=== PATIENT | male | born 1935 | race Caucasian/White ===

== ENCOUNTER 2016-07-26 05:36 | Inpatient (IN) | payer OTHER ==
[2016-07-20 14:44] LABS: HEMATOCRIT 33.5 % (42.0-52.0); HEMOGLOBIN 11.1 gm/dL (14.0-18.0)
[2016-07-20 14:56] LABS: INR 1.1; PROTIME 10.9 Seconds (9.3-11.4)
[~2016-07-26] VITALS: Ht 177.8 cm; Wt 95.3 kg
[2016-07-26] VITALS (10 sets, daily range): BP systolic 117–149; BP diastolic 60–98
--- NOTE | ~2016-07-26 | O ---
[facility] [place] [address] OPERATIVE REPORT Name: FLORIN HICKMAN Room #: 536-P [facility] IN M.R.#: [id number] Admission: 07/26/16 Attend Phys: Hasmukh Gonzales MD Discharge: Date of : 37 Report #: [id number] THIS REPORT FOR: //name// CC: Aneesh Gonzales DATE OF SERVICE: 07/26/2016 PREOPERATIVE DIAGNOSIS: Right knee osteoarthritis. POSTOPERATIVE DIAGNOSIS: Right knee osteoarthritis. PROCEDURE: Right total knee arthroplasty. SURGEON: Hasmukh Gonzales MD. STONEWORKER: Sandie Stewart PA-C. ANESTHESIA: General with an adductor canal block. IMPLANTS: Were Ayala and Nephew size 6 Legion cobalt chrome posterior stabilized femur, size 6 tibia, size 35 patella, and a size 9 polyethylene. TOURNIQUET TIME: 66 minutes. ESTIMATED BLOOD LOSS: 50 mL. COMPLICATIONS: None. SPECIMENS: None. CONDITION UPON LEAVING THE OPERATING ROOM: Stable. INDICATIONS FOR PROCEDURE: The patient is a 81-year-old gentleman with severe valgus right knee osteoarthritis. He had failed conservative treatment for this, and after discussion with him, he elected for right total knee arthroplasty. DESCRIPTION OF PROCEDURE: Risks, benefits, alternatives, and complications were discussed in detail with the patient, including but not limited to risk of anesthesia, risk of damage to nerves, arteries, blood vessels, risk for infection, bleeding, risk for continued knee pain, and need for reoperation. An informed consent was obtained from the patient. The right knee was appropriately marked in the preoperative holding area. IV Ancef was given for preoperative antibiotics. An adductor canal block was placed by anesthesia. He was brought to the operating room and placed in the supine position on the [address] [address] OPERATIVE REPORT Name: MARYLOUFLORIN DEBORAH Room #: 536-P [facility] IN M.R.#: [id number] Admission: 07/26/16 Attend Phys: Hasmukh Gonzales MD Discharge: Date of : 37 Report #: [id number] operating room table. LMA anesthesia was induced without complication. Tourniquet was placed on the right thigh. Right lower extremity was prepped and draped in normal sterile fashion. Timeout was performed, properly identifying the patient, procedure, as well as the instrumentation and implants. All in the operating room were in agreement. Right lower extremity was exsanguinated. Tourniquet was inflated. Tourniquet time was 66 minutes. A standard midline approach to the knee was made with #10 blade through the skin. Dissection was taken down sharply to the fascia, and deep flaps were developed medially and laterally. Fresh #10 blade was used to make a medial parapatellar arthrotomy, and the knee was inspected. There was extensive tricompartmental osteoarthritis of the knee, most severe on the lateral compartment. Deep retractors were placed, patella was everted, and knee was flexed. Anterior horns of the meniscus were removed sharply. ACL and PCL were removed sharply. Drill was used to gain access to the canal of the femur, and distal femoral cutting block was pinned in place. Distal femoral cut was made. The femur was sized and found to be of size 6. A size 6, 4-in-1 cutting block was placed. The anterior, posterior, and chamfer cuts were made. After this, attention was turned to the tibia. Drill was used to gain access to the canal and tibial resection guide was pinned in place using intramedullary alignment. Tibial resection was made and posterior osteophytes were then removed from the femur, and the flexion and extension gaps were checked and found to be somewhat tight and laterally in extension and a limited lateral release was performed using a pie crust technique. After this, the flexion and extension gaps were well balanced. The tibia was sized, found to be of size 6. The size 6 tibial trial was placed, size 6 femoral trial was placed, and the box cut was made. Post was placed and the size 9 polyethylene trial was placed. Knee was taken through range of motion, found to be stable and have good balance in flexion and extension, both medially and laterally. 9 mm was then resected from the posterior surface of the patella, and a size 35 patellar button trial was placed. Knee was taken through range of motion, found to be stable, and found to have good patellar tracking. After this, trial components were removed. Bony ends were thoroughly irrigated with normal saline. A final size 6 tibia, size 6 Legion cobalt chrome posterior stabilized femur, and a size 35 patella were cemented in place using standard cementation techniques. While this cement cured, a periarticular injection consisting of morphine, ropivacaine, epinephrine, and Toradol was placed around the knee joint. After the cement cured, tourniquet was deflated. Hemostasis was obtained with Bovie cautery. A final size 9 polyethylene was placed. The fascia was closed with 0 Vicryl. Skin was closed with 2-0 Vicryl, 3-0 Monocryl, and Dermabond. Soft dressing of Aquacel was applied. The patient tolerated this procedure well and went to the recovery room under the care of anesthesia postoperatively. <ELECTRONICALLY SIGNED> By: Hasmukh Gonzales MD 07/28/16 0716 0937 1031 Hasmukh Gonzales MD /cal
[~2016-07-26 05:36] MED LIST: ALEVE220 M1 PO; ALEVE220 MG PO; ASPERCREME177.4 ML; ASPIRIN325 PO; BISCOLAX10 MG RC; CALCIUM 600 +1 EAC1 PO; CARDIZEM CD180 MG PO; CARTIA XT180 M1 PO; CASODEX 50 MG T50 M1 PO; COLACE100 MG PO; ELIQUIS5 MG PO; HYDROCODONE-AP1 EAC6 PO; MAG-AL PLUS SUS30 ML PO; MEN'S ONE DAIL1 EAC1 PO; MIRALAX17 GM PO; NORCO 5-325 TA1 EACH PO; OXAYDO5 MG PO; PACERONE 200 M200 M1 PO; REQUIP1 MG PO; SENOKOT-S1 TA1 PO; STOOL SOFTENER100 MG PO
[2016-07-27 04:00] VITALS: BP 113/69
[2016-07-27 05:29] LABS: HEMOGLOBIN 8.5 gm/dL (14.0-18.0); MCH 27.6 pg (26.0-34.0); MCHC 32.7 g/dL (28.0-37.0); MCV 84.4 fL (80.0-100.0); RBC 3.08 mil/uL (4.50-6.00); RDW 13.4 % (10.5-14.5); WBC 14.6 thou/uL (4.0-11.0)
[2016-07-27 08:54] VITALS: BP 115/64
[2016-07-27 10:24] VITALS: BP 115/64
[2016-07-27 10:53] VITALS: BP 115/64
[2016-07-27 15:40] VITALS: BP 120/66
[2016-07-28 06:45] LABS: HEMATOCRIT 23.3 % (42.0-52.0); HEMOGLOBIN 7.7 gm/dL (14.0-18.0); MCH 28.1 pg (26.0-34.0); MCV 84.9 fL (80.0-100.0); RBC 2.75 mil/uL (4.50-6.00); RDW 13.5 % (10.5-14.5); WBC 11.4 thou/uL (4.0-11.0)
[2016-07-28 07:48] VITALS: BP 117/66
[2016-07-28 15:14] VITALS: BP 140/66
[2016-07-28 20:17] VITALS: BP 112/68
[2016-07-29 05:08] VITALS: BP 108/60
[2016-07-29 05:26] LABS: HEMATOCRIT 22.5 % (42.0-52.0); HEMOGLOBIN 7.5 gm/dL (14.0-18.0); MCHC 33.1 g/dL (28.0-37.0); MCV 84.6 fL (80.0-100.0); RBC 2.66 mil/uL (4.50-6.00); RDW 13.4 % (10.5-14.5); WBC 10.7 thou/uL (4.0-11.0)
[2016-07-29 07:44] VITALS: BP 111/60
[2016-07-29] MEDS ORDERED: CVS BUFFERED A325 MG PO (08:07)
[2016-07-29] MEDS ORDERED: MS CONTIN15 MG PO (08:08)
[2016-07-29] MEDS ORDERED: PERCOCET PO (08:08)
[2016-07-29 13:44] VITALS: BP 115/64
[2016-07-29] MEDS ORDERED: NEURONTIN 300300 M1 PO (13:59)
== END 2016-07-29 14:30 | disposition home health service (06) | DRG 470 ==
LOC: TBA 05:36 → 5S 05:36 → PRE 10:23 → 5S 11:33 → PRE 13:31 → 5S 07-29 14:30
PROVIDERS: Orthopaedic Surgery
PROC: 0SRC0J9 Replacement of Right Knee Joint with Synthetic Substitute, Cemented, Open Approach (ICD-10-PCS; principal; 2016-07-26)
DX: M17.11 Unilateral primary osteoarthritis, right knee (principal)
CPT/HCPCS: 10785; 50010; 50101; 50415; 50612; 50954; 51130; 51225; 51771; 52256; 53000; 53078; 53364; 54118; 56527; 56528; 57095; 62110; 62900; 70005

== ENCOUNTER 2016-08-04 10:47 | Emergency (ER) | payer OTHER ==
[~2016-08-04] VITALS: Ht 177.8 cm; Wt 88.0 kg
[~2016-08-04 10:47] MED LIST changes: +CVS BUFFERED A325 MG PO; +MS CONTIN15 MG PO; +NEURONTIN 300300 M1 PO; +PERCOCET PO
[2016-08-04] MEDS ORDERED: MAGNESIUM CITR296 ML PO (13:09)
[2016-08-04] MEDS ORDERED: SENOKOT-S1 TA1 PO (13:09)
[2016-08-04] MEDS ORDERED: DULCOLAX10 MG RC (13:09)
== END 2016-08-04 13:55 | disposition home or self-care (01) ==
LOC: ER 10:47
DX: K59.00 Constipation, unspecified (principal); R33.9 Retention of urine, unspecified; M19.90 Unspecified osteoarthritis, unspecified site; I10 Essential (primary) hypertension; I48.91 Unspecified atrial fibrillation; G25.81 Restless legs syndrome; Z98.890 Other specified postprocedural states; Z85.828 Personal history of other malignant neoplasm of skin; Z96.641 Presence of right artificial hip joint; Z85.46 Personal history of malignant neoplasm of prostate; Z96.652 Presence of left artificial knee joint; Z92.21 Personal history of antineoplastic chemotherapy; Z92.3 Personal history of irradiation

== ENCOUNTER 2016-08-08 06:51 | Inpatient (IN) | payer OTHER ==
[~2016-08-08] VITALS: Ht 177.8 cm; Wt 102.5 kg
--- NOTE | ~2016-08-08 | P ---
[facility] [place] [address] PROCEDURE REPORT Name: FLORIN HICKMAN Room #: 248-P ADM IN M.R.#: [id number] Admission: 08/08/16 Attend Phys: Yaakov Chance MD Discharge: Date of : 37 Report #: [id number] THIS REPORT FOR: //name// CC: Aneesh Chance BRIEF HISTORY: The patient is a 81-year-old male who has had recent total new replacement with multiple complications who had hematemesis last evening. PREOPERATIVE DIAGNOSIS: Hematemesis. He also has used nonsteroid anti-inflammatory drugs on a regular basis for arthritis pain. Upper gastrointestinal bleed. POSTOPERATIVE DIAGNOSES: 1. Giant clot filling duodenum and antrum of the stomach without obvious active bleeding at this time. 2. Diffuse gastritis. MEDICATIONS: Deep sedation with propofol per anesthesia. SPECIMEN: Biopsies of antrum and body, rule out H. pylori. ESTIMATED BLOOD LOSS: From the procedure, 3 mL. PROCEDURE: EGD with biopsy. FINDINGS: The patient was seen in the intensive care unit. Procedure was discussed with the patient and his . They indicate they understand and desire to proceed. DESCRIPTION OF PROCEDURE: With the patient in supine position, his head and chest were raised about 30 degrees. The [employer] video endoscope was inserted in the cervical esophagus under direct vision without difficulty. Examination of this organ through its entire length revealed normal esophageal mucosa down the squamocolumnar junction. Squamocolumnar junction was noted to be unremarkable. The scope was advanced in the stomach, and we entered a pool of blackish liquid material. We initially started with a standard upper endoscope and switched to double channel scope. We suctioned out about 700 mL of bloody fluid from the stomach, again this was old dark material. We cannot remove all the fluid from the proximal stomach due to the of the clot which clogged the scope. The scope was advanced into the distal stomach, and the mucosa was intact; however, there was a large organized clot filling the antrum coming out of the pylorus. Bright red blood was not seen. I was able to advance the scope around the clot across the pylorus into the duodenum. However, the entire duodenum was filled with large clot. I could get a glimpse of some of the mucosa, but overall, very little duodenum [facility] [address] [place] [address] PROCEDURE REPORT Name: FLORIN HICKMAN Room #: 248-P [facility] IN M.R.#: [id number] Admission: 08/08/16 Attend Phys: Yaakov Chance MD Discharge: Date of : 37 Report #: [id number] could be seen because of a large clot. We tried several times to work around the clot without success. Again, bright red blood was not seen, and presumably, the patient had stopped bleeding, although I could not advance the scope beyond the clot to determine whether there was any bright red blood downstream. Due to the size of the clot and the lack of bright red blood, it was felt best to not disturb the clot at this point rather than try debulk the clot with a polypectomy snare. My concerns for visibility in the duodenal bulb even if we debulk the clot, we still may not be able to have good visibility to deal with a bleeding vessel, which could result of removal of clot. Therefore, it was felt best to treat conservatively at this point in time. Mucosa biopsies were taken of the antrum and body to evaluate for H. pylori. The scope was withdrawn. The patient tolerated the procedure well. DISPOSITION: The patient with GI bleeding following total knee surgery with complications. Again, active bleeding was not seen. Visibility was limited due to giant clot filling the antrum and the duodenal bulb. We will treat with a PPI drip at this point in time. We will monitor hemoglobin carefully and transfuse as needed. Hopefully, if there is no further bleeding, we will return later in the week for repeat endoscopy to evaluate the presumed ulcer site. However, if he has further bleeding, we may need to proceed with urgent endoscopy and deal with the clot. Another consideration would be interventional radiology if bleeding cannot be controlled endoscopically. <ELECTRONICALLY SIGNED> By: Luis Fernando Cm MD 08/16/16 1217 1405 2128 Luis Fernando Cm MD /nt
--- NOTE | ~2016-08-08 | HC ---
[facility] [place] [address] CONSULTATION Name: FLORIN HICKMAN Room #: 544-P ADM IN M.R.#: [id number] Admission: 08/08/16 Attend Phys: Yaakov Chance MD Discharge: Date of : 37 Report #: [id number] THIS REPORT FOR: //name// CC: Aneesh Chance DATE OF SERVICE: 08/08/2016 REASON FOR CONSULTATION: I was asked to evaluate concerning right total knee arthroplasty surgical site infection. HISTORY OF PRESENT ILLNESS: The patient was a 81-year-old underwent right total knee arthroplasty on 07/26/2016 for degenerative arthritis. His first postoperative check was satisfactory. There were no intraoperative complications. The day following his check, he fell in the bathroom down to his knees with a contusion developing an increased pain and swelling. Along with this, he has had issues with constipation and urinary outlet obstructive symptoms. Dick catheter was placed in the Emergency Room for this on 08/04/2016. After his fall, pain increased in the knee and was unable to be maintain at home and brought in through the Emergency Room. No fever, chills or sweats. Has pain at rest and with any movement. He has had some serosanguineous drainage from his incision. No recent antibiotics. ALLERGIES: None. MEDICATIONS: As noted on his MAR including vancomycin and ceftriaxone currently. FAMILY HISTORY AND SOCIAL HISTORY: Otherwise, noncontributory. Lives at home with his . He is a nonsmoker. PAST MEDICAL HISTORY: As noted on his H and P, which was reviewed. He does have a history of prostate cancer, left parotid cancer, degenerative arthritis, diverticulitis, right total hip arthroplasty, left total knee arthroplasties, hypertension, atrial fibrillation, restless legs syndrome. REVIEW OF SYSTEMS: No cardiopulmonary issues, his constipation has improved, is tolerating his Dick catheter without issue. PHYSICAL EXAMINATION: VITAL SIGNS: Afebrile and hemodynamically stable. GENERAL: Alert, cooperative and pleasant, in no acute distress. HEENT: Unremarkable. Does wear glasses. NECK: Supple. LUNGS: Clear. HEART: Regular, without murmur. [facility] [address] [place] [address] CONSULTATION Name: FLORIN HICKMAN Room #: 544-P [facility] IN M.R.#: [id number] Admission: 08/08/16 Attend Phys: Yaakov Chance MD Discharge: Date of : 37 Report #: [id number] ABDOMEN: Mildly distended, nontender, no hepatosplenomegaly or mass. He has an indwelling Dick catheter. EXTREMITIES: Right lower extremity ecchymotic from his hip down to his toes with erythema surrounding the knee and lower leg. He had serosanguineous drainage from his incision. He had limited range of motion due to his pain and swelling. Sensation in the foot were normal. Pulses were palpable in the foot. LABORATORY STUDIES: Ultrasound of lower extremity negative for DVT. Hemoglobin 7.3 down from 7.5 postop, WBC 23, platelet count 447,000. Differential, 93% segs, 2% bands. Lactate 1.1. INR 1.1, creatinine 0.8. IMPRESSION AND PLAN: Postoperative day #13 from right total knee arthroplasty, now with contusion to the knee with associated hematoma and I suspect underlying infection as developed. Recommend continuing IV antibiotic therapy. We will have orthopedic evaluate for possible washout of his knee. We will continue IV antibiotic therapy. Also, need to reassess his bladder function. <ELECTRONICALLY SIGNED> By: Vitaliy Burciaga MD 08/11/16 0828 1141 2249 Vitaliy Burciaga MD /nt
--- NOTE | ~2016-08-08 | HC ---
[facility] [place] [address] CONSULTATION Name: FLORIN HICKMAN Room #: 544-P ADM IN M.R.#: [id number] Admission: 08/08/16 Attend Phys: Yaakov Chance MD Discharge: Date of : 37 Report #: [id number] THIS REPORT FOR: //name// CC: Aneesh Chance DATE OF SERVICE: 08/08/2016 REASON FOR CONSULTATION: I was asked to evaluate concerning postoperative infection, right knee. HISTORY OF PRESENT ILLNESS: The patient is a 81-year-old who underwent a right total knee arthroplasty on 07/26/[address] Gonzales. No intraoperative complications. Postoperatively, did well on his first check, although fell last week on to the knee. He has been on aspirin twice a day. There is increased pain in the knee along with swelling and beginning to have serous drainage. Returns to the Emergency Room for further evaluation. No fever, chills or sweats. In addition, he has had an indwelling Dick catheter placed for outlet obstructive symptoms within the past week. He has been constipated. No cough or sputum production. REVIEW OF SYSTEMS: Otherwise, unremarkable. PAST MEDICAL HISTORY: Bilateral inguinal herniorrhaphies, left parotidectomy, multiple skin cancers, degenerative arthritis, diverticulitis, right total hip arthroplasty, right cataract surgery, prostate cancer, hypertension, atrial fibrillation, restless legs syndrome, left total knee arthroplasty. MEDICATIONS: As noted on his MAR, now on vancomycin and ceftriaxone. <ELECTRONICALLY SIGNED> By: Vitaliy Burciaga MD 08/09/16 1558 1131 2215 Vitaliy Burciaga MD /nt
--- NOTE | ~2016-08-08 | HC ---
[facility] [place] [address] CONSULTATION Name: FLORIN HICKMAN Room #: 248-P ADM IN M.R.#: [id number] Admission: 08/08/16 Attend Phys: Yaakov Chance MD Discharge: Date of : 37 Report #: [id number] THIS REPORT FOR: //name// CC: Aneesh Chance HISTORY OF PRESENT ILLNESS: The patient is a 81-year-old white male who underwent a right total knee replacement on 07/26/2016. He was noted to be initially doing well and then he had a fall and then subsequently he developed increased pain and swelling involving the right knee. He was noted to have an elevated white count of 23,000 and was noted to have a postoperative infection and underwent I and D with polyethylene exchange on 08/09/2016. During his postoperative recuperation, his course was then complicated by hematemesis. He was noted to have a giant clot feeling the duodenum. He ended up being scoped the next day with the scope revealing a large deep nonbleeding duodenal ulcer. He also has diffuse gastritis. Initial scope was on 08/15/2016. He is noted to have an MRSA infection with MRSA bacteremia. Infectious disease is involved. We are seeing him in rehabilitation medicine consultation. PAST MEDICAL HISTORY: Includes paroxysmal atrial fibrillation, restless legs syndrome, history of diverticulitis, degenerative arthritis, prostate cancer, hypertension, and parotid tumor. PAST SURGICAL HISTORY: As noted above. FAMILY HISTORY: Noncontributory. HABITS: No history of tobacco abuse, quit drinking alcohol several years ago. ALLERGIES: No known drug allergies. SOCIAL HISTORY: Lives in a house with his . There is a stair glide, he used a cane mostly, occasional walker. He does have a lift chair, but he tries to limit sitting in it. REVIEW OF SYSTEMS: Did not offer any current complaints of chest pain, shortness of breath or abdominal discomfort. Some knee discomfort, but not too bad. He complains of overall generalized weakness. No other focal extremity pain complaints. He is somewhat frustrated with his condition. He does have the urinary retention with the Dick catheter. PHYSICAL EXAMINATION: GENERAL: A 81-year-old white male, in no obvious distress. He is pleasant. VITAL SIGNS: Last recorded temperature 37.4, pulse 84, respirations 18, and blood pressure 138/74. HEENT: Facies are symmetric. EXTREMITIES: He has functional range of motion of both upper extremities with [facility] [address] [place] [address] CONSULTATION Name: FLORIN HICKMAN Room #: 248-P [facility] IN [facility]#: [id number] Admission: 08/08/16 Attend Phys: Yaakov Chance MD Discharge: Date of : 37 Report #: [id number] strength a grade 4-/5. DTRs are trace to 1. His right knee is dressed. He has a wound VAC in place. There is no focal calf swelling. He was able to dorsiflex the right ankle. Strength of the right lower extremity is probably a grade 4- to 3+/5. Left lower extremity strength is more of a grade 4- to 4/5. DTRs are trace to 1. Right knee flexion achieved 74 degrees with extension -10 when last tested by physical therapy. His last transfer was max assist, but that was before the GI bleed. I also do not see that he is ambulated since the GI bleed. ASSESSMENT: A 81-year-old white male with the following problem list: 1. Degenerative arthritis, status post right total knee replacement with a postop infection. 2. Methicillin-resistant Staphylococcus aureus infection, status post I and D with polyethylene exchange on 08/09/2016. 3. Acute significant gastrointestinal bleed with a large deep duodenal ulcer noted on EGD on 08/16. 4. Urinary retention. 5. Methicillin-resistant Staphylococcus aureus bacteremia. 6. Paroxysmal atrial fibrillation. 7. Restless legs syndrome. PLAN: The patient meets diagnostic criteria and functional criteria for an acute in-hospital inpatient rehabilitation stay. We will follow along with you as he further medically stabilizes. He continues currently in the intensive care unit. We will be glad to assist regarding rehab therapy issues and rehab transfer as he further medically stabilizes. By: [id number] Edwin Ledesma MD /nt
--- NOTE | ~2016-08-08 | P ---
[facility] [place] [address] PROCEDURE REPORT Name: FLORIN HICKMAN Room #: 248-P [facility] IN M.R.#: [id number] Admission: 08/08/16 Attend Phys: Yaakov Chance MD Discharge: Date of : 37 Report #: [id number] THIS REPORT FOR: //name// CC: Aneesh Chance BRIEF HISTORY: The patient is a 81-year-old male with upper GI bleeding and evidence of continued ongoing bleeding. He is currently in the intensive care unit and he now requires 4 units of blood for his bleeding. He had an upper endoscopy yesterday and the duodenal bulb and antrum were filled with clot and the lesion could not be visualized. PREOPERATIVE DIAGNOSIS: Upper gastrointestinal bleeding with large clot yesterday. POSTOPERATIVE DIAGNOSES: 1. Large deep nonbleeding duodenal ulcer, apex of bulb. 2. Diffuse gastritis. MEDICATIONS: Deep sedation per anesthesia in the intensive care unit. SPECIMEN: None. ESTIMATED BLOOD LOSS: None related. PROCEDURE: EGD. FINDINGS: Prior to propofol sedation, procedure of upper endoscopy was reviewed with the patient as well as potential risks and its complications. He indicates he understands and desires that we proceed. DESCRIPTION OF PROCEDURE: With the patient in the supine position, his head and chest were raised about 20-30 degrees. Subsequently, [employer] double-channel video endoscope was inserted in the cervical esophagus without difficulty. Examination of the esophagus revealed a small amount of brown material, which likely came from the NG tube. No lesions or bleeding lesions were seen. The scope was advanced in the stomach, which was examined on end views as well as retroflexed views. There was no red blood in the stomach. However, there was brownish liquidy material scattered about the stomach. We were able to suction much of this material away. Upon retroflexion, no mass lesions were seen. Examination of the distal stomach revealed gastritis. It was also noted that the previously noted large clot was no longer present. There was no active bleeding in the stomach. The scope was advanced across the pylorus and duodenal bulb. Upon entering the bulb, there was no clot present. A very large duodenal ulcer was seen, it was at least 2 cm in greatest dimension. It had significant depth. Close to the distal margin of the ulcer was a raised lesion without a clot. This was felt to represent an exposed vessel. This vessel looked quite [facility] [address] [place] [address] PROCEDURE REPORT Name: FLORIN HICKMAN Room #: 248-P [facility] IN .R.#: [id number] Admission: 08/08/16 Attend Phys: Yaakov Chance MD Discharge: Date of : 37 Report #: [id number] large. The scope was advanced beyond the ulcer. The mucosa in the second portion of the duodenum was normal. There was some brownish liquid, but no red blood. Scope was withdrawn back in the bulb and again the ulcer crater was carefully examined. The vessel appears to be fairly large. This raises concern for safety for hemostasis of this vessel that is currently not bleeding. It was felt the vessel was a significant size. It looked there was a significant risk of significant bleeding in the bulb which would result in limit of visibility and potentially difficulty with controlling the bleeding. Therefore, it was felt best to not cauterize this lesion at this point in time. Also, it is unlikely a clip would be amenable to this particular lesion in the crater. Therefore, the scope was slowly withdrawn with careful circumferential views confirming the above findings. The patient tolerated the procedure well. DISPOSITION: The patient with deep duodenal ulcer. There appears to be an exposed vessel. The vessel, without clot and nonbleeding, is worrisome for a large vessel which could not be well controlled with intervention such as BICAP cautery. Therefore, we will continue to observe the patient. There is no active bleeding at this time. We will continue his proton pump inhibitor. If he has further bleeding, interventional radiology may be needed to control the bleeding. <ELECTRONICALLY SIGNED> By: Luis Fernando Cm MD 08/18/16 1128 1600 2340 Luis Fernando Cm MD /nt
--- NOTE | ~2016-08-08 | H ---
[facility] [place] [address] HISTORY AND PHYSICAL Name: FLORIN HICKMAN Room #: 248-P ADM IN M.R.#: [id number] Admission: 08/08/16 Attend Phys: Yaakov Chance MD Discharge: Date of : 37 Report #: [id number] THIS REPORT FOR: //name// CC: Aneesh Chance DATE OF SERVICE: 08/08/2016 CHIEF COMPLAINT: Right knee pain, redness and drainage. HISTORY OF PRESENT ILLNESS: The patient is a 81-year-old man who had knee replacement surgery last month, on 07/26/2016. A few days ago, the patient fell at home. Initially, he had pain, but then he developed redness, and significant worsening pain. He came to the emergency room. The patient describes his pain as 10/10. After first dose of morphine, he is somewhat better. His white count is also found to be elevated at 23,000. The patient has no fever, and he has been hemodynamically stable. PAST MEDICAL HISTORY: 1. History of paroxysmal atrial fibrillation, not on anticoagulation. 2. Chronic anemia. 3. Restless legs syndrome. 4. History of parotid tumor. 5. History of diverticulitis. 6. Degenerative joint disease. 7. History of prostate cancer. 8. Hypertension. HOME MEDICATIONS: The patient is on Casodex 50 mg a day, Dulcolax 20 mg every 8 hours as needed, diltiazem CD 180 mg a day, gabapentin 300 mg at night, magnesium citrate as needed, morphine sulfate ER 15 mg b.i.d., naproxen as needed twice a day, Requip 1 mg at night, and Senokot as needed. FAMILY HISTORY: Reviewed and not pertinent to the patient's current condition. SOCIAL HISTORY: The patient quit drinking alcohol a few years ago. He does not smoke cigarettes. REVIEW OF SYSTEMS: As above in HPI section, all others negative. PHYSICAL EXAMINATION: GENERAL: The patient is an elderly man who looks uncomfortable due to ongoing pain. VITAL SIGNS: His blood pressure is 124/65, heart rate is 86, respiration is 14, and temperature is 98.1. [facility] [address] [place] [address] HISTORY AND PHYSICAL Name: FLORIN HICKMAN Room #: 248-P [facility] IN [facility].#: [id number] Admission: 08/08/16 Attend Phys: Yaakov Chance MD Discharge: Date of : 37 Report #: [id number] HEENT: Pupils are equal. Eye movements are normal. The patient has anicteric sclerae. NECK: Supple. Thyromegaly is not palpated. The patient has no JVD. He has no carotid bruits. RESPIRATORY: Chest moves symmetrically with breathing. LUNGS: Clear to auscultation bilaterally. CARDIOVASCULAR: The patient has regular rhythm and rate. He has no murmurs, gallops, or rubs. GASTROINTESTINAL: Abdomen is soft, nondistended and nontender. Bowel sounds are normal. Hepatomegaly or splenomegaly is not palpated. MUSCULOSKELETAL: The patient has significantly swollen right knee, with drainage from the surgical incision site. Skin is red. Range of motion is significantly limited. Range of motion of other joints are normal. NEUROLOGIC: The patient is alert and oriented x 3. His neurologic exam is grossly nonfocal. SKIN: Skin is significantly erythematous at the right knee, with drainage. LABORATORY DATA: On metabolic profile, the patient has mild hyponatremia with sodium of 132. Rest of the electrolytes are normal. Liver function tests are normal. On CBC, white count is 23,000. Hemoglobin is 7.3, hematocrit 23.1, and platelets 447. ASSESSMENT AND PLAN: 1. Right knee infection, subsequent to the fall. As noted, the patient presents with significant erythema at the right knee, and drainage from the surgical incision site. He had a knee replacement surgery on 07/26/2016. Orthopedic surgeon and infectious disease specialist are consulted. Input is very much appreciated. The patient is already started on vancomycin, and cultures are obtained. 2. Urinary retention. Dick catheter was placed as an outpatient, which will be continued. 3. History of paroxysmal atrial fibrillation, now in sinus rhythm. He will be continued on diltiazem. The patient is not on anticoagulation. 4. Chronic constipation. Bowel regimen will be continued. 5. Deep venous thrombosis prophylaxis. We will hold off anticoagulation for now, until it is decided if the patient needs to have incision and drainage. <ELECTRONICALLY SIGNED> By: Yaakov Chance MD 08/17/16 1807 1145 1311 Yaakov Chance MD /nt
--- NOTE | ~2016-08-08 | 2DMMODE ---
[facility] [address] [place] [address] 2 D/M-MODE ECHOCARDIOGRAM Name: MARYLOUFLORIN DEBORAH Room #: 239-P ADM IN M.R.#: [id number] Admission: 08/08/16 Attend Phys: Yaakov Chance Discharge: Date of : 37 Date of Service: 08/19/16 1219 Report #: [id number] THIS REPORT FOR: //name// APPROVED REPORT Study performed: 08/19/2016 08:32:08 EXAM: Comprehensive 2D, Doppler, and color-flow Echocardiogram Patient Location: ICU Room #: 239 Status: routine Other Information Study Quality: Adequate Indications Atrial Fibrillation Hx HTN 2D Dimensions RVDd: 42.10 mm LVEF(%): 57.58 (>50%) IVSd: 9.09 (7-11mm) LVOT Diam: 24.48 (18-24mm) LVDd: 57.84 mm PWd: 10.04 (7-11mm) Ascending Ao: 39.95 (22-36mm) LVDs: 40.05 (25-40mm) Aortic Root: 28.31 mm Alexander's LVEF: 57.58 % Volumes Left Atrial Volume (Systole) Single Plane 4CH: 37.35 mL LA ESV Index: 37.00 mL/m2 Aortic Valve AoV Peak Elmer.: 1.62 m/s AO Peak Gr.: 11.26 mmHg LVOT Max P.12 mmHg LVOT Max V: 1.02 m/s SAMI Vmax: 2.95 cm2 Mitral Valve E/A Ratio: 0.9 MV Decel. Time: 282.38 ms MV E Max Elmer.: 0.58 m/s MV A Elmer.: 0.68 m/s MV PHT: 81.89 ms [facility] [address] [place] [address] 2 D/M-MODE ECHOCARDIOGRAM Name: MARYLOUFLORIN DEBORAH Room #: 239-P [facility] IN M.R.#: [id number] Admission: 08/08/16 Attend Phys: Yaakov Chance Discharge: Date of : 37 Date of Service: 08/19/16 1219 Report #: [id number] IVRT: 92.27 ms Pulmonary Valve PV Peak Elmer.: 1.05 m/s PV Peak Gr.: 4.42 mmHg Pulmonary Vein P Vein S: 0.96 m/s P Vein D: 0.33 m/s P Vein S/D Ratio: 2.91 Tricuspid Valve TR Peak Elmer.: 2.49 m/s RAP Estimate: 10.00 mmHg TR Peak Gr.: 24.82 mmHg PA Pressure: 35.00 mmHg Left Ventricle The left ventricle is normal size. There is normal LV segmental wall motion. There is normal left ventricular wall thickness. The left ventricular systolic function is normal. The left ventricular ejection fraction is within the normal range. LVEF is 55-60%. Grade I - abnormal relaxation pattern. Right Ventricle The right ventricle is normal size. The right ventricular systolic function is normal. Atria Left atrium is at the upper limits of normal. The right atrium size is normal. Aortic Valve Aortic valve is thickened but has adequate excursion. Trace aortic regurgitation. There is no aortic valvular stenosis. Mitral Valve The mitral valve is normal in structure. Trace mitral regurgitation. No evidence of mitral valve stenosis. Tricuspid Valve The tricuspid valve is normal in structure. There is trace tricuspid regurgitation. The right atrial pressure is estimated at 10 mmHg. There is mild pulmonary hypertension with an estimated PAP of 35 mmHg. Pulmonic Valve The pulmonary valve is normal in structure. Trace pulmonic [address] [address] 2 D/M-MODE ECHOCARDIOGRAM Name: FLORIN HICKMAN DEBORAH Room #: 239-P [facility] IN ..#: [id number] Admission: 08/08/16 Attend Phys: Yaakov Chance Discharge: Date of : 37 Date of Service: 08/19/16 1219 Report #: [id number] regurgitation. Great Vessels The aortic root is normal in size. The ascending aorta is normal in size. IVC is dilated. Pericardium There is no pericardial effusion. <Conclusion> The left ventricle is normal size. LVEF is 55-60%. Aortic valve is thickened but has adequate excursion. Trace aortic regurgitation. The mitral valve is normal in structure. Trace mitral regurgitation. The tricuspid valve is normal in structure. There is trace tricuspid regurgitation. The right atrial pressure is estimated at 10 mmHg. There is mild pulmonary hypertension with an estimated PAP of 35 mmHg. <ELECTRONICALLY SIGNED> By: Art Waldron MD 08/19/16 1219 1219 1219 Art Waldron MD /INF
--- NOTE | ~2016-08-08 | EKG ---
[address] [address] ELECTROCARDIOGRAM REPORT Name: FLORIN HICKMAN Room #: 248-P ADM IN M.R.#: [id number] Admission: 08/08/16 Attend Phys: Yaakov Chance MD Discharge: Date of : 37 Report #: [id number] THIS REPORT FOR: //name// 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
--- NOTE | ~2016-08-08 | O ---
[facility] [place] [address] OPERATIVE REPORT Name: FLORIN HICKMAN Room #: 544-P ADM IN M.R.#: [id number] Admission: 08/08/16 Attend Phys: Yaakov Chance MD Discharge: Date of : 37 Report #: [id number] THIS REPORT FOR: //name// CC: Aneesh Chance DATE OF SERVICE: 08/09/2016 PREOPERATIVE DIAGNOSIS: Acute postop right total knee arthroplasty infection. POSTOPERATIVE DIAGNOSIS: Acute postop right total knee arthroplasty infection. PROCEDURE: Irrigation and debridement of right total knee arthroplasty with polyethylene exchange. SURGEON: Hasmukh Gonzales MD. STAFF CLIMATE SCIENTIST: Sandie Stewart PA-C. ANESTHESIA: General endotracheal. TOURNIQUET TIME: 26 minutes. IMPLANTS: A new size 9 polyethylene was placed after the debridement and irrigation. SPECIMENS: Cultures were sent times 2. CONDITION UPON LEAVING THE OPERATING ROOM: Stable. INDICATIONS FOR PROCEDURE: The patient is a 81-year-old gentleman, who is 2 weeks postop from a right total knee arthroplasty. He had a fall at the end of last week and has had increasing pain and redness with drainage from the knee incision. He was admitted to the hospital with an elevated white blood cell count and after discussion with he and his , as well as examination of the knee, it was felt that he could possibly have an acute postoperative infection, and we discussed irrigation and debridement with polyethylene exchange. DESCRIPTION OF PROCEDURE: Risks, benefits, alternatives, and complications were discussed in detail with the patient and the patient's including but not limited to risk of anesthesia, risk of damage to nerves, arteries, blood vessels, risk for infection, continued infection, bleeding, and possibility of failed treatment and need for explantation of antibiotic spacer. An informed consent was obtained from the patient. His right knee was appropriately marked in the preoperative holding area. He was brought to the operating room and placed in the supine position on the operating room table. General endotracheal [address] [address] OPERATIVE REPORT Name: FLORIN HICKMAN DEBORAH Room #: 544-P [facility] IN M.R.#: [id number] Admission: 08/08/16 Attend Phys: Yaakov Chance MD Discharge: Date of : 37 Report #: [id number] anesthesia was induced without complication. IV vancomycin was given for preoperative antibiotics. Right lower extremity was prepped and draped in normal sterile fashion. A timeout was performed properly identifying the patient and procedure, as well as the instrumentation and implants. All in the operating room were in agreement. Right lower extremity was elevated, tourniquet was inflated. Tourniquet time was 26 minutes. Previous incision was then opened with a #10 blade, and upon entering the subcutaneous tissue, there was a large hematoma that was evacuated. There was some cloudy fluid mixed with the hematoma. Cultures of the superficial fluid were taken. The medial parapatellar arthrotomy was then opened and again a slightly cloudy bloody resolving hematoma fluid was evacuated. Debridement of the tissues was then performed and the polyethylene was removed. The knee was then thoroughly irrigated with normal saline using pulse lavage. A periarticular injection consisting of morphine, ropivacaine, Toradol, and epinephrine was placed around the knee joint, and a new size 9 polyethylene was placed. A deep drain was placed. One gram of vancomycin powder was placed to the knee joint. The fascial incision was then closed with 0 Vicryl. Skin was closed with 2-0 Vicryl. Skin katherine, and Prevena dressing was applied. The patient tolerated this procedure well, and went to the recovery room under the care of anesthesia postoperatively. <ELECTRONICALLY SIGNED> By: Hasmukh Gonzales MD 08/11/16 0718 1229 1516 Hasmukh Gonzales MD /nt
--- NOTE | ~2016-08-08 | S ---
[facility] [place] [address] SURGICAL PATH RPT PROCEDURE Name: FLORIN ISAAC Room #: 248-P ADM IN M.R.#: [id number] Admission: 08/08/16 Date of : 37 Discharge: Report #: [id number] Path Case #: [id number] PATHOLOGY REPORT COLLECTION DATE: 08/15/2016 RECEIVED DATE: 08/16/2016 SUBMITTING PHYS: Dr. Luis Fernando Cm OTHER PHYS: Dr. Aneesh Chance SPECIMEN(S) RECEIVED: A.Bx of gastritis * * * * * * * * * * * * FINAL DIAGNOSIS: Gastric mucosa, gastritis, endoscopic biopsy: - Mild reactive gastropathy. - Negative for intestinal metaplasia or atrophy. - Negative for Helicobacter pylori. COMMENT: Helicobacter pylori immunohistochemical stain performed on block A1 - Negative. PATHOLOGIST: Zena Cordova M.D. REPORT ELECTRONICALLY SIGNED BY: Zena Cordova M.D. DATE/TIME: 08/17/2016 16:25 * * * * * * * * * * * * GROSS PATHOLOGY: Received in formalin labeled "Florin Isaac, biopsy of gastritis," are 4 segments of hinson soft tissue measuring 0.5 x 0.4 x 0.2 cm in aggregate dimensions and ranging from 0.2 to 0.4 cm in maximum dimension. The specimen is submitted entirely in cassette A1. (KAH; 08/16/2016) CLINICAL HISTORY: Pre-op diagnosis: GI bleed Post-op diagnosis: Gastritis, GI bleed INITIAL CPT CODE(S): A; 32792, 84011 Professional services performed by [facility] at [facility] [address] , [place] [address] [facility] [address] [place] [address] SURGICAL PATH RPT PROCEDURE Name: FLORIN ISAAC Room #: 248-P ADM IN M.R.#: [id number] Admission: 08/08/16 Date of : 37 Discharge: Report #: [id number] Path Case #: [id number] Technical services performed by [facility] at [address] [place] [address], [place] [address]. [facility] [address] [place] [address] PHONE: [phone] DIRECTOR: Marcus Cortés M.D. * * * END OF REPORT * * *
--- NOTE | ~2016-08-08 | HC ---
[facility] [place] [address] CONSULTATION Name: FLORIN HICKMAN Room #: 544-P ADM IN M.R.#: [id number] Admission: 08/08/16 Attend Phys: Yaakov Chance MD Discharge: Date of : 37 Report #: [id number] THIS REPORT FOR: //name// CC: Aneesh Chance DATE OF SERVICE: 08/08/2016 DATE OF CONSULTATION: 08/08/2016 REASON FOR CONSULTATION: Draining right knee wound. HISTORY OF PRESENT ILLNESS: The patient is a 81-year-old gentleman who is 13 days status post right total knee arthroplasty. Over this past weekend, has had increasing pain and swelling in the knee with drainage from his wound. He does report a fall last weekend. He came to the Emergency Room and was admitted for possible knee wound infection. PAST MEDICAL HISTORY: Significant for bilateral inguinal hernia, left parotidectomy, chemo and radiation following a parotidectomy, arthritis, diverticulitis, right hip replacement, left hip replacement, right cataract, colonoscopy, prostate cancer, hypertension, AFib, restless legs syndrome, left total knee arthroplasty. CURRENT MEDICATIONS: Have been reviewed and are on the chart. ALLERGIES: No known drug allergies. SOCIAL HISTORY: Does not smoke, drink or use illicit drugs. He lives with his at home. PHYSICAL EXAMINATION: GENERAL: He is a well-developed, well-nourished male in no acute distress. He is alert and oriented. EXTREMITIES: Examination of the right knee shows him to have serosanguineous drainage from the mid portion of his incision as well as the anterior portion of his incision. His right knee and leg shows significant erythema and heat. There is no purulence noted. He does have pain with range of motion of his knee. He has 2+ dorsalis pedis pulse and 1+ pitting edema. LABORATORY DATA: Show him to have a white count of 23, hemoglobin of 7.3, and platelet of 447. Ultrasound of the right lower extremity is negative for DVT. ASSESSMENT: Possible infected right total knee arthroplasty 2 weeks postop. PLAN: Discussed with he and his today treatment options. I am [address] [address] CONSULTATION Name: FLORIN HICKMAN Room #: 544-P ADM IN M.R.#: [id number] Admission: 08/08/16 Attend Phys: Yaakov Chance MD Discharge: Date of : 37 Report #: [id number] recommending irrigation and debridement of the right knee with polyethylene exchange. We will take cultures of his knee. He has been started on antibiotics already per Dr. Vitaliy Burciaga's recommendation. He is on ceftriaxone 2 grams every 24 hours. Certainly, it is possible that this is a wound hematoma, but given his elevated white cell count, I think we are obligated to wash this out. I have him on for tomorrow morning at 10:00 a.m. He will be n.p.o. after midnight. Thank you for allowing us to participate in the care of the patient. <ELECTRONICALLY SIGNED> By: Hasmukh Gonzales MD 08/09/16 0940 1524 0222 Hasmukh Gonzales MD /nt
[~2016-08-08 06:51] MED LIST changes: +DULCOLAX10 MG RC; +MAGNESIUM CITR296 ML PO
[2016-08-08 06:52] VITALS: BP 14/72; BP 144/72; BP 146/72
[2016-08-08 07:09] LABS: HEMATOCRIT 23.1 % (42.0-52.0); HEMOGLOBIN 7.3 gm/dL (14.0-18.0); MCH 26.8 pg (26.0-34.0); MCHC 31.7 g/dL (28.0-37.0); MCV 84.5 fL (80.0-100.0); PLATELET COUNT 447 thou/uL (150-400); RBC 2.73 mil/uL (4.50-6.00); RDW 14.1 % (10.5-14.5)
[2016-08-08] MEDS ORDERED: ALEVE220 MG PO (07:09)
[2016-08-08 07:13] LABS: MANUAL DIFF YES
[2016-08-08 07:16] LABS: CALCIUM 8.1 mg/dL (8.5-10.1); CREATININE 0.8 mg/dL (0.7-1.3); POTASSIUM 4.1 mmol/L (3.5-5.1)
[2016-08-08 07:22] LABS: APTT 34.4 Seconds (24.5-32.8); INR 1.1; PROTIME 11.9 Seconds (9.3-11.4)
[2016-08-08 07:37] LABS: ABSOLUTE NEUTROPHILS 21.9 thou/uL (1.4-8.2); ANISOCYTOSIS SLIGHT; TOTAL CELL COUNT 100
[2016-08-08 09:45] VITALS: BP 124/65
[2016-08-08 11:00] VITALS: BP 137/72
[2016-08-08 17:30] VITALS: BP 122/55
[2016-08-08 20:00] VITALS: BP 128/71
[2016-08-08 23:51] VITALS: BP 123/62
[2016-08-09] VITALS (9 sets, daily range): BP systolic 103–136; BP diastolic 57–74
[2016-08-09 04:39] LABS: BASOPHILS 0.1 % (0.0-2.0); EOSINOPHILS 0.8 % (0.0-3.0); HEMATOCRIT 21.9 % (42.0-52.0); HEMOGLOBIN 7.1 gm/dL (14.0-18.0); LYMPHOCYTES 2.3 % (24.0-44.0); MCH 26.8 pg (26.0-34.0); MCHC 32.2 g/dL (28.0-37.0); MCV 83.2 fL (80.0-100.0); MONOCYTES 5.4 % (1.0-8.0); PLATELET COUNT 401 thou/uL (150-400); POLYS 91.4 % (36.0-66.0); RBC 2.63 mil/uL (4.50-6.00); RDW 14.3 % (10.5-14.5); WBC 14.3 thou/uL (4.0-11.0)
[2016-08-09 04:43] LABS: CALCIUM 7.5 mg/dL (8.5-10.1); CREATININE 0.7 mg/dL (0.7-1.3); POTASSIUM 4.3 mmol/L (3.5-5.1)
[2016-08-09 04:44] LABS: MANUAL DIFF NO
[2016-08-10 04:48] VITALS: BP 105/72
[2016-08-10 05:32] LABS: LYMPHOCYTES 2.3 % (24.0-44.0); RDW 14.2 % (10.5-14.5)
[2016-08-10 05:33] LABS: ABSOLUTE NEUTROPHILS 9.4 thou/uL (1.4-8.2); BASOPHILS 0.2 % (0.0-2.0); MCH 27.1 pg (26.0-34.0); MCHC 32.6 g/dL (28.0-37.0); MCV 83.2 fL (80.0-100.0); MONOCYTES 4.8 % (1.0-8.0); PLATELET COUNT 347 thou/uL (150-400); POLYS 92.7 % (36.0-66.0); RBC 2.37 mil/uL (4.50-6.00); WBC 10.2 thou/uL (4.0-11.0)
[2016-08-10 05:43] LABS: CALCIUM 7.7 mg/dL (8.5-10.1); CREATININE 0.8 mg/dL (0.7-1.3); POTASSIUM 4.6 mmol/L (3.5-5.1)
[2016-08-10 06:01] LABS: HEMATOCRIT 19.7 % (42.0-52.0); HEMOGLOBIN 6.4 gm/dL (14.0-18.0)
[2016-08-10 08:29] LABS: MANUAL DIFF NO
[2016-08-10 08:36] VITALS: BP 112/60
[2016-08-10 13:02] VITALS: BP 125/69; BP 131/64
[2016-08-10 20:07] VITALS: BP 129/73
[2016-08-11 05:25] LABS: HEMATOCRIT 23.1 % (42.0-52.0); HEMOGLOBIN 7.6 gm/dL (14.0-18.0); MCH 27.7 pg (26.0-34.0); MCV 83.9 fL (80.0-100.0); PLATELET COUNT 362 thou/uL (150-400); RBC 2.75 mil/uL (4.50-6.00); RDW 14.6 % (10.5-14.5); WBC 12.6 thou/uL (4.0-11.0)
[2016-08-11 05:27] LABS: MANUAL DIFF YES
[2016-08-11 05:31] LABS: CALCIUM 7.8 mg/dL (8.5-10.1); CREATININE 0.7 mg/dL (0.7-1.3); POTASSIUM 4.6 mmol/L (3.5-5.1)
[2016-08-11 06:27] LABS: ABSOLUTE NEUTROPHILS 11.8 thou/uL (1.4-8.2); NUCLEATED RBCS 1 /100WBC; TOTAL CELL COUNT 100
[2016-08-11 07:34] VITALS: BP 132/75
[2016-08-11 14:45] VITALS: BP 113/65
[2016-08-11 19:28] VITALS: BP 114/67
[2016-08-12 04:37] VITALS: BP 138/73
[2016-08-12 06:27] LABS: ABSOLUTE NEUTROPHILS 8.6 thou/uL (1.4-8.2); BASOPHILS 0.3 % (0.0-2.0); EOSINOPHILS 4.1 % (0.0-3.0); HEMATOCRIT 25.4 % (42.0-52.0); HEMOGLOBIN 8.3 gm/dL (14.0-18.0); LYMPHOCYTES 10.7 % (24.0-44.0); MCH 27.5 pg (26.0-34.0); MCHC 32.8 g/dL (28.0-37.0); MCV 83.9 fL (80.0-100.0); MONOCYTES 6.7 % (1.0-8.0); PLATELET COUNT 407 thou/uL (150-400); POLYS 78.2 % (36.0-66.0); RBC 3.03 mil/uL (4.50-6.00); RDW 14.7 % (10.5-14.5)
[2016-08-12 06:28] LABS: MANUAL DIFF NO
[2016-08-12 06:38] LABS: CALCIUM 8.2 mg/dL (8.5-10.1); CREATININE 0.8 mg/dL (0.7-1.3); POTASSIUM 4.5 mmol/L (3.5-5.1)
[2016-08-12 07:28] VITALS: BP 133/83
[2016-08-12 15:19] VITALS: BP 128/59
[2016-08-12 19:50] VITALS: BP 132/73
[2016-08-13 04:25] VITALS: BP 137/67
[2016-08-13 05:17] LABS: HEMATOCRIT 24.2 % (42.0-52.0); HEMOGLOBIN 7.8 gm/dL (14.0-18.0); MCH 27.1 pg (26.0-34.0); MCHC 32.2 g/dL (28.0-37.0); MCV 84.1 fL (80.0-100.0); PLATELET COUNT 380 thou/uL (150-400); RBC 2.88 mil/uL (4.50-6.00)
[2016-08-13 05:28] LABS: MANUAL DIFF YES
[2016-08-13 05:34] LABS: CALCIUM 8.2 mg/dL (8.5-10.1); CREATININE 0.7 mg/dL (0.7-1.3); POTASSIUM 4.2 mmol/L (3.5-5.1)
[2016-08-13 06:08] LABS: ABSOLUTE NEUTROPHILS 7.9 thou/uL (1.4-8.2); ANISOCYTOSIS 2+; MYELOCYTES 2 %; NUCLEATED RBCS 3 /100WBC; POLYCHROMASIA OCCASIONAL; PROMYELOCYTES 1 %; TOTAL CELL COUNT 100
[2016-08-13 06:10] LABS: HYPOCHROMASIA 1+
[2016-08-13 07:30] VITALS: BP 140/75
[2016-08-13 15:20] VITALS: BP 109/61
[2016-08-13 21:10] VITALS: BP 151/84
[2016-08-14 06:28] LABS: HEMATOCRIT 22.9 % (42.0-52.0); HEMOGLOBIN 7.4 gm/dL (14.0-18.0); MCH 26.9 pg (26.0-34.0); MCHC 32.5 g/dL (28.0-37.0); MCV 82.8 fL (80.0-100.0); PLATELET COUNT 372 thou/uL (150-400); RBC 2.76 mil/uL (4.50-6.00); RDW 15.4 % (10.5-14.5); WBC 11.5 thou/uL (4.0-11.0)
[2016-08-14 06:29] LABS: MANUAL DIFF YES
[2016-08-14 06:35] LABS: CALCIUM 7.9 mg/dL (8.5-10.1); CREATININE 0.6 mg/dL (0.7-1.3); POTASSIUM 3.9 mmol/L (3.5-5.1)
[2016-08-14 07:45] LABS: ABSOLUTE NEUTROPHILS 9.8 thou/uL (1.4-8.2); NUCLEATED RBCS 1 /100WBC; TOTAL CELL COUNT 100
[2016-08-14 07:46] LABS: ANISOCYTOSIS 2+; HYPOCHROMASIA 1+; POLYCHROMASIA SLIGHT
[2016-08-14 08:05] VITALS: BP 129/66
[2016-08-14 16:00] VITALS: BP 116/78
[2016-08-14 19:05] VITALS: BP 122/72
[2016-08-14 21:26] VITALS: BP 118/66
[2016-08-15] VITALS (67 sets, daily range): BP systolic 69–174; BP diastolic 43–153
[2016-08-15 00:47] LABS: HEMATOCRIT 20.7 % (42.0-52.0); MCH 26.7 pg (26.0-34.0); MCHC 31.7 g/dL (28.0-37.0); MCV 84.4 fL (80.0-100.0); RBC 2.46 mil/uL (4.50-6.00); RDW 15.7 % (10.5-14.5)
[2016-08-15 00:49] LABS: MANUAL DIFF YES
[2016-08-15 00:54] LABS: PLATELET COUNT 450 thou/uL (150-400)
[2016-08-15 00:57] LABS: CALCIUM 7.9 mg/dL (8.5-10.1); CREATININE 0.8 mg/dL (0.7-1.3); POTASSIUM 4.4 mmol/L (3.5-5.1)
[2016-08-15 01:01] LABS: HEMOGLOBIN 6.6 gm/dL (14.0-18.0)
[2016-08-15 03:23] LABS: ABSOLUTE NEUTROPHILS 18.3 thou/uL (1.4-8.2); ANISOCYTOSIS 1+; MYELOCYTES 2 %; POLYCHROMASIA OCCASIONAL; TOTAL CELL COUNT 100
[2016-08-15 03:24] LABS: MACROCYTES SLIGHT
[2016-08-15 06:59] LABS: HEMATOCRIT 22.4 % (42.0-52.0); HEMOGLOBIN 7.2 gm/dL (14.0-18.0)
[2016-08-16] VITALS (52 sets, daily range): BP systolic 104–166; BP diastolic 55–121
[2016-08-16 00:18] LABS: RDW 15.3 % (10.5-14.5)
[2016-08-16 00:19] LABS: MCH 28.2 pg (26.0-34.0); MCHC 31.9 g/dL (28.0-37.0); MCV 88.4 fL (80.0-100.0); RBC 2.38 mil/uL (4.50-6.00); WBC 16.6 thou/uL (4.0-11.0)
[2016-08-16 00:20] LABS: PLATELET COUNT 304 thou/uL (150-400)
[2016-08-16 00:21] LABS: MANUAL DIFF YES
[2016-08-16 00:23] LABS: HEMOGLOBIN 6.7 gm/dL (14.0-18.0)
[2016-08-16 01:11] LABS: ABSOLUTE NEUTROPHILS 14.4 thou/uL (1.4-8.2); TOTAL CELL COUNT 100
[2016-08-16 01:12] LABS: HYPOCHROMASIA SLIGHT
[2016-08-16 01:13] LABS: LARGE PLATELETS RARE; POLYCHROMASIA 2+
[2016-08-16 05:53] LABS: CALCIUM 7.5 mg/dL (8.5-10.1); CREATININE 0.8 mg/dL (0.7-1.3); POTASSIUM 3.8 mmol/L (3.5-5.1)
[2016-08-16 17:07] LABS: MCHC 33.4 % (28.0-37.0); MCV 86.8 fL (80.0-100.0); RBC 2.76 mil/uL (4.50-6.00); RDW 15.3 % (10.5-14.5)
[2016-08-16 22:07] LABS: HEMATOCRIT 24.2 % (42.0-52.0); HEMOGLOBIN 7.8 gm/dL (14.0-18.0); MCH 28.7 pg (26.0-34.0); MCHC 32.4 g/dL (28.0-37.0); MCV 88.8 fL (80.0-100.0); RBC 2.73 mil/uL (4.50-6.00); RDW 15.3 % (10.5-14.5); WBC 12.4 thou/uL (4.0-11.0)
[2016-08-17] VITALS (23 sets, daily range): BP systolic 123–158; BP diastolic 64–106
[2016-08-17 05:08] LABS: HEMOGLOBIN 7.8 gm/dL (14.0-18.0); MCH 28.6 pg (26.0-34.0); MCHC 32.3 g/dL (28.0-37.0); MCV 88.5 fL (80.0-100.0); PLATELET COUNT 252 thou/uL (150-400); RBC 2.71 mil/uL (4.50-6.00); RDW 15.5 % (10.5-14.5); WBC 10.5 thou/uL (4.0-11.0)
[2016-08-17 05:11] LABS: MANUAL DIFF YES
[2016-08-17 05:15] LABS: CALCIUM 7.4 mg/dL (8.5-10.1); CREATININE 0.8 mg/dL (0.7-1.3); POTASSIUM 3.3 mmol/L (3.5-5.1)
[2016-08-17 06:41] LABS: METAMYELOCYTES 1 %; MYELOCYTES 1 %; TOTAL CELL COUNT 100
[2016-08-18] VITALS (25 sets, daily range): BP systolic 116–199; BP diastolic 62–111
[2016-08-18 05:40] LABS: HEMOGLOBIN 8.3 gm/dL (14.0-18.0); MCH 28.8 pg (26.0-34.0); MCHC 32.1 g/dL (28.0-37.0); MCV 89.8 fL (80.0-100.0); PLATELET COUNT 260 thou/uL (150-400); RDW 15.6 % (10.5-14.5); WBC 11.8 thou/uL (4.0-11.0)
[2016-08-18 05:44] LABS: CALCIUM 7.4 mg/dL (8.5-10.1); CREATININE 0.7 mg/dL (0.7-1.3); POTASSIUM 3.3 mmol/L (3.5-5.1)
[2016-08-18 05:47] LABS: MANUAL DIFF YES
[2016-08-18 06:53] LABS: ABSOLUTE NEUTROPHILS 9.9 thou/uL (1.4-8.2); ANISOCYTOSIS 1+; METAMYELOCYTES 1 %; POLYCHROMASIA 1+; TOTAL CELL COUNT 100
[2016-08-18 18:34] LABS: MAGNESIUM 1.7 mg/dL (1.8-2.4); POTASSIUM 3.5 mmol/L (3.5-5.1)
[2016-08-19] VITALS (14 sets, daily range): BP systolic 128–163; BP diastolic 68–104
[2016-08-19 05:23] LABS: HEMATOCRIT 26.1 % (42.0-52.0); HEMOGLOBIN 8.5 gm/dL (14.0-18.0)
[2016-08-19 05:32] LABS: CALCIUM 7.3 mg/dL (8.5-10.1); CREATININE 0.6 mg/dL (0.7-1.3); POTASSIUM 3.7 mmol/L (3.5-5.1)
[2016-08-20 03:48] LABS: HEMATOCRIT 24.5 % (42.0-52.0); HEMOGLOBIN 8.1 gm/dL (14.0-18.0); MCH 29.2 pg (26.0-34.0); MCHC 32.9 g/dL (28.0-37.0); MCV 88.7 fL (80.0-100.0); RBC 2.76 mil/uL (4.50-6.00); WBC 10.9 thou/uL (4.0-11.0)
[2016-08-20 04:07] LABS: CALCIUM 7.4 mg/dL (8.5-10.1); CREATININE 0.7 mg/dL (0.7-1.3); POTASSIUM 3.5 mmol/L (3.5-5.1)
[2016-08-20 04:42] VITALS: BP 142/78
[2016-08-20 07:22] VITALS: BP 135/72
[2016-08-20 11:42] VITALS: BP 143/79
[2016-08-20 15:55] VITALS: BP 145/75
[2016-08-20 19:42] VITALS: BP 144/73
[2016-08-21 03:19] VITALS: BP 101/71
[2016-08-21 06:27] LABS: HEMATOCRIT 24.5 % (42.0-52.0); HEMOGLOBIN 8.1 gm/dL (14.0-18.0); MCH 29.1 pg (26.0-34.0); MCV 88.1 fL (80.0-100.0); RBC 2.78 mil/uL (4.50-6.00); RDW 15.5 % (10.5-14.5); WBC 10.2 thou/uL (4.0-11.0)
[2016-08-21 06:41] LABS: CALCIUM 7.6 mg/dL (8.5-10.1); CREATININE 0.7 mg/dL (0.7-1.3); POTASSIUM 3.3 mmol/L (3.5-5.1)
[2016-08-21 08:28] VITALS: BP 157/75
[2016-08-21 11:40] VITALS: BP 137/81
== END 2016-08-21 15:48 | DRG 466 ==
LOC: ER 06:51 → EROBS 08:38 → 5S 08:38 → 4W 08-15 00:19 → ICU 08-15 00:50 → 4W 08-19 14:44
PROVIDERS: Emergency Medicine; Hospitalist; Internal Medicine Endocrinology, Diabetes & Metabolism; Internal Medicine Gastroenterology; Nurse Practitioner Family; Orthopaedic Surgery; Specialist
PROC: 0S9C0ZZ Drainage of Right Knee Joint, Open Approach (ICD-10-PCS; principal; 2016-08-09)
PROC: 0SPC0JZ Removal of Synthetic Substitute from Right Knee Joint, Open Approach (ICD-10-PCS; principal; 2016-08-09)
PROC: 0SRC0JZ Replacement of Right Knee Joint with Synthetic Substitute, Open Approach (ICD-10-PCS; principal; 2016-08-09)
PROC: 30233N1 Transfusion of Nonautologous Red Blood Cells into Peripheral Vein, Percutaneous Approach (ICD-10-PCS; 2016-08-10)
PROC: 02HV33Z Insertion of Infusion Device into Superior Vena Cava, Percutaneous Approach (ICD-10-PCS; 2016-08-12)
PROC: B548ZZA Ultrasonography of Superior Vena Cava, Guidance (ICD-10-PCS; 2016-08-12)
PROC: 0DB68ZX Excision of Stomach, Via Natural or Artificial Opening Endoscopic, Diagnostic (ICD-10-PCS; 2016-08-15)
DX: T84.53XA Infection and inflammatory reaction due to internal right knee prosthesis, initial encounter (principal); A41.9 Sepsis, unspecified organism; K26.4 Chronic or unspecified duodenal ulcer with hemorrhage; L03.115 Cellulitis of right lower limb; E87.1 Hypo-osmolality and hyponatremia; K57.90 Diverticulosis of intestine, part unspecified, without perforation or abscess without bleeding; M19.90 Unspecified osteoarthritis, unspecified site; I10 Essential (primary) hypertension; G25.81 Restless legs syndrome; I48.0 Paroxysmal atrial fibrillation; Z96.652 Presence of left artificial knee joint; Z96.643 Presence of artificial hip joint, bilateral; R33.9 Retention of urine, unspecified; D53.9 Nutritional anemia, unspecified; K59.09 Other constipation; B95.62 Methicillin resistant Staphylococcus aureus infection as the cause of diseases classified elsewhere; E87.6 Hypokalemia; K29.70 Gastritis, unspecified, without bleeding; D64.9 Anemia, unspecified; I49.3 Ventricular premature depolarization; K31.9 Disease of stomach and duodenum, unspecified; S80.01XA Contusion of right knee, initial encounter; W19.XXXA Unspecified fall, initial encounter; Z79.899 Other long term (current) drug therapy; Z92.21 Personal history of antineoplastic chemotherapy; Z92.3 Personal history of irradiation; Z98.41 Cataract extraction status, right eye; Z85.46 Personal history of malignant neoplasm of prostate; Z86.010 Personal history of colon polyps; Z85.828 Personal history of other malignant neoplasm of skin; Y93.89 Activity, other specified; Y92.89 Other specified places as the place of occurrence of the external cause; Y99.8 Other external cause status
CPT/HCPCS: 10045; 10078; 10086; 27000; 50010; 50101; 50415; 50953; 50954; 51412; 51771; 53078; 55430; 56528; 57095; 62110; 62900; 64037; 70005; 85076

== ENCOUNTER 2016-08-21 13:21 | Inpatient (IN) | payer OTHER ==
[~2016-08-21] VITALS: Ht 177.8 cm; Wt 118.4 kg
--- NOTE | ~2016-08-21 | PLAN ---
[facility] [place] [address] REHAB UNIT PLAN OF CARE Name: FLORIN HICKMAN Room #: 506-1 [facility] IN M.R.#: [id number] Admission: 08/21/16 Attend Phys: Edwin Ledesma MD Discharge: 08/29/16 Date of : 37 Report #: [id number] THIS REPORT FOR: //name// CC: Edwin Guerra The patient is seen back today in followup. He is feeling worse today with some nausea and vomiting. Temperature 97.9, pulse 73, respirations 14, blood pressure 124/66. Gastroenterology has been contacted. No focal calf swelling. Right knee incision is healed except for inferior 1.5 cm wound dehiscence. Orthopedics is following. He has been progressing in his therapies and is now max assist with transfers and is ambulating 46 feet min assist with a front-wheeled walker. Lower extremity dressing is max assist. ASSESSMENT: 1. Degenerative arthritis, status post right total knee replacement with a postoperative infection post-trauma. 2. Methicillin-resistant Staphylococcus aureus infections, status post I and D with polyethylene exchange 08/09/2016. 3. Acute significant gastrointestinal bleed with a large deep duodenal ulcer noted on EGD, August 16. He is having some nausea and vomiting today and gastroenterology is following. 4. Urinary retention during the initial postoperative period. Urology has seen him in consultation. He is on Flomax with consideration for voiding trial in the near future. 5. Methicillin-resistant Staphylococcus aureus bacteremia. 6. Paroxysmal atrial fibrillation. 7. Restless legs syndrome. PLAN: The overall plan of care is based on the preadmission screen, post-admission physician evaluation and information garnered from therapy assessments. 1. Estimated length of stay is probably at least 2-3 weeks pending progress. 2. Medical prognosis is reasonably good. 3. Anticipated interventions includes the interdisciplinary acute inpatient rehabilitation program with PT and OT involved, speech therapy is seeing him as well regarding his diet, but he is on a thin liquid diet. Rehab nursing is involved for medication management, skin care issues, bowel and bladder issues, nursing education. The multiple senior professional services consultant physicians are continuing to follow. 4. Anticipated functional outcomes would be for the patient to improve as far as transfers, mobility and ADLs that he is able to be independent at the walker level to return back home. 5. Discharge destination would be back to the home setting where he lives with his . 6. Expected therapy by discipline includes PT and OT and speech 1-1/2 hours per day each five days a week throughout the [place] [address] REHAB UNIT PLAN OF CARE Name: FLORIN HICKMAN Room #: 506-1 [facility] IN M.R.#: [id number] Admission: 08/21/16 Attend Phys: Edwin Ledesma MD Discharge: 08/29/16 Date of : 37 Report #: [id number] rehabilitation stay. Would anticipate will be able to decrease the speech therapy and increase the PT and OT. <ELECTRONICALLY SIGNED> By: Edwin Ledesma MD 08/30/16 1825 1026 1112 Edwin Ledesma MD /nt
--- NOTE | ~2016-08-21 | D ---
[facility] [place] [address] DISCHARGE SUMMARY Name: FLORIN HICKMAN Room #: 506-1 [facility] IN M.R.#: [id number] Admission: 08/21/16 Attend Phys: Edwin Ledesma MD Discharge: 08/29/16 Date of : 37 Report #: [id number] THIS REPORT FOR: //name// CC: Edwin Guerra DATE OF SERVICE: 08/29/2016 The patient is a 81-year-old white male who underwent a right total knee replacement on 07/26/2016. He initially was doing well then he had a fall and subsequently developed increased pain with swelling involving his right knee. He had an elevated white count, was noted to have a postoperative infection and underwent I and D with polyethylene exchange 08/09/2016. His postoperative recuperation was complicated by hematemesis with a noted giant clot involving the duodenum. It was scoped the next day and the scope revealed a large nonbleeding deep duodenal ulcer. He also had diffuse gastritis. Regarding the knee he was noted to have MRSA with MRSA bacteremia. Infectious disease has been involved. He did gradually stabilize and was felt to be ready for transfer for acute in-hospital inpatient rehabilitation. Please see the full admission note dictation. HOSPITAL COURSE: The patient was involved in the inpatient rehabilitation program. He was followed by multiple consultants during his rehabilitation stay. He continued on IV antibiotics. He remains stable as far as the GI bleed. He did have urinary retention with Urology involved and is continued with Dick catheterization. Wound care was involved. There was concern regarding incision and he was seen back in followup by Orthopedics, Dr. Gonzales. He has been transferred off rehab and will be undergoing space replacement secondary to the infection. From a functional perspective, he had been progressing with the rehab including transfers, which had improved to min assist and was ambulating up to 25 feet with a front-wheeled walker. Lower extremity dressing was still max assist. DISCHARGE DIAGNOSES: 1. Degenerative arthritis, status post right total knee replacement with methicillin-resistant Staphylococcus aureus infection, status post I and D with polyethylene exchange. 2. Large duodenal ulcer with gastrointestinal bleed. 3. Urinary retention with Dick. 4. Methicillin-resistant Staphylococcus aureus bacteremia. 5. Paroxysmal atrial fibrillation. 6. Restless legs syndrome. 7. Left lower lobe pneumonia. PLAN: The patient was transferred off the rehab nguyen for further surgical [address] [address] DISCHARGE SUMMARY Name: FLORIN HICKMAN Room #: 506-1 [facility] IN .R.#: [id number] Admission: 08/21/16 Attend Phys: Edwin Ledesma MD Discharge: 08/29/16 Date of : 37 Report #: [id number] intervention. We will defer activity level, medications, etc. as per the accepting service. <ELECTRONICALLY SIGNED> By: Edwin Ledesma MD 08/30/16 1826 1637 1939 Edwin Ledesma MD /cal
--- NOTE | ~2016-08-21 | H ---
[facility] [place] [address] HISTORY AND PHYSICAL Name: FLORIN HICKMAN Room #: 506-1 [facility] IN M.R.#: [id number] Admission: 08/21/16 Attend Phys: Edwin Ledesma MD Discharge: 08/29/16 Date of : 37 Report #: [id number] THIS REPORT FOR: //name// CC: Edwin Guerra DATE OF SERVICE: 08/21/2016 HISTORY OF PRESENT ILLNESS: The patient is a 81-year-old white male who underwent a right total knee replacement on 07/26/2016. He was initially doing well and then he had a fall and subsequently developed increased pain and swelling involving the right knee. He is noted to have an elevated white count of 23,000 and was noted to have a postoperative infection and underwent I and D with polyethylene exchange 08/09/2016. During his postoperative recuperation, his course was complicated by hematemesis. He was noted to have a giant clot involving the duodenum and he was scoped the next day with the scope revealing a large deep nonbleeding duodenal ulcer. He also had diffuse gastritis. Regarding the knee, he was noted to have an MRSA infection with MRSA bacteremia. Infectious Disease has been involved. He also was noted to have atrial fibrillation with rapid ventricular rate, is now in sinus rhythm. He was not felt to be ready and has been admitted for acute in-hospital inpatient rehabilitation. PAST MEDICAL HISTORY: Includes paroxysmal atrial fibrillation, restless legs syndrome, history of diverticulitis, degenerative arthritis, prostate cancer, hypertension, parotid tumor. PAST SURGICAL HISTORY: Is as noted above. FAMILY HISTORY: Noncontributory. HABITS: No history of tobacco abuse, quit drinking alcohol several years ago. ALLERGIES: No known drug allergies. SOCIAL HISTORY: Lives in a house with his . There was a stair glide, he used a cane mostly, occasional walker. He does have a lift chair, but tried to limit sitting in it. REVIEW OF SYSTEMS: No current complaints of chest pain, shortness of breath or abdominal discomfort. Complains of overall generalized weakness. Some complaints of constipation. He has had urinary retention with Dick catheter to dependent drainage. PHYSICAL EXAMINATION: GENERAL: A 81-year-old white male in no obvious distress. [address] [address] HISTORY AND PHYSICAL Name: FLORIN HICKMAN Room #: 506-1 [facility] IN ..#: [id number] Admission: 08/21/16 Attend Phys: Edwin Ledesma MD Discharge: 08/29/16 Date of : 37 Report #: [id number] VITAL SIGNS: Last recorded temperature 99.1, pulse 86, respirations 20, blood pressure 156/92. NEUROLOGIC: Facies are symmetric. He does have functional range of motion of both upper extremities. Strength is a grade 4-/5. DTRs are trace to 1. Right knee is dressed. No focal calf swelling. 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 Strength to the upper extremities is grade 4-/5. Lower extremity strength is grade 3+ to 4-/5. He does have the indwelling Dick catheter. HEENT: Facies appeared symmetric. CHEST: Sounded clear to auscultation. CARDIOVASCULAR: Regular rate and rhythm. ABDOMEN: Bowel sounds positive, nontender. GENITOURINARY AND RECTAL: With the catheter is noted. EXTREMITIES: He is needing assistance with basic functional mobility skills and has been at a lower level. Transfers have been max assist of 2. He was able to ambulate prior to rehabilitation admission a short distance with max assist of 2. He is allowed weightbearing as tolerated. ASSESSMENT: A 81-year-old white male with the following problem list: 1. Degenerative arthritis status post right total knee replacement with a postoperative infection. 2. Methicillin-resistant Staphylococcus aureus infection, status post I and D with polyethylene exchange 08/09/2016. 3. Acute significant gastrointestinal bleed with a large deep duodenal ulcer noted on EGD on August 16. 4. Urinary retention. 5. MRSA bacteremia. 6. Paroxysmal atrial fibrillation. 7. Restless legs syndrome. PLAN: The patient is admitted for acute in-hospital inpatient rehabilitation. From a postadmission physician evaluation perspective, there are no relevant changes since the preadmission screening. Please see the above review of prior and current medical and functional conditions and comorbidities. Please see the patient's previous and current functional status. As far as risk of complications, the patient has multiple medical comorbidities as noted above. Initial plan of care involves the interdisciplinary acute inpatient rehabilitation program with the goal of maximizing the patient's functional independence. Prognosis is reasonably good with estimated length of stay, probably fairly long as he is at a lower level. Potential barriers would include his multiple medical comorbidities and decreased functional status. The patient meets diagnostic criteria for an acute in-hospital inpatient rehabilitation stay. He meets medical necessity criteria. He does have [facility] [address] [place] [address] HISTORY AND PHYSICAL Name: FLORIN HICKMAN Room #: 506-1 [facility] IN M.R.#: [id number] Admission: 08/21/16 Attend Phys: Edwin Ledesma MD Discharge: 08/29/16 Date of : 37 Report #: [id number] appropriate tolerance for therapies and has appropriate discharge goals back to the home setting. <ELECTRONICALLY SIGNED> By: Edwin Ledesma MD 08/30/16 1821 [id number] [id number] Edwin Ledesma MD /nt
--- NOTE | ~2016-08-21 | HC ---
[facility] [place] [address] CONSULTATION Name: FLORIN HICKMAN Room #: 506-1 ADM IN M.R.#: [id number] Admission: 08/21/16 Attend Phys: Edwin Ledesma MD Discharge: Date of : 37 Report #: [id number] THIS REPORT FOR: //name// CC: Edwin Guerra DATE OF SERVICE: 08/27/2016 ATTENDING PHYSICIAN: Edwin Ledesma M.D. EXCEPTIONAL CHILDREN TEACHER: Elieser Stiles, PhD CLINICAL PRESENTATION: The patient is a 81-year-old male admitted to the rehabilitation unit at [facility] for comprehensive inpatient rehabilitation program to improve functional mobility, activities of daily living and self-care and mental status secondary to deficits from a complications of right total knee replacement. The patient initially underwent a right total knee replacement on 07/26/2016. He was doing well and then had a fall that included increased pain and swelling of the knee. Additional medical complications included diffuse gastritis. He carries a past medical history that includes paroxysmal atrial fibrillation, restless leg syndrome, history of diverticulitis, degenerative arthritis, prostate cancer, hypertension and a carotid tumor. His assessment on admission to rehab include generative arthritis, status post right total knee replacement; MRSA; acute gastritis; gastrointestinal bleed with a large deep duodenal ulcer; urinary retention; paroxysmal atrial fibrillation and restless leg syndrome. A complete description of his medical condition, history and medications can be found in his medical record. Neuropsychological consultation was requested to provide assistance in the assessment of cognitive and emotional status and to provide recommendations and services. Prior to this most recent admission, he was living at home with his . The patient indicates that he discontinued driving about 3 years ago. His was managing bill payment and nutrition and diet management. 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 He has a master's degree in education. He has 3 biological children and 2 stepchildren. TECHNIQUES UTILIZED: Clinical interview, review of medical records, staff consultation and behavioral observation, mini mental status exam 2 standard version, clock drawing, verbal fluency assessment (letter and category, clock drawing and brief abstract reasoning assessment. EXAMINATION FINDINGS: The patient was alert and cooperative with the assessment. He accurately described events surrounding his admission. There is no evidence of aphasia. His thoughts are logical and goal oriented. There is [facility] [address] [place] [address] CONSULTATION Name: FLORIN HICKMAN Room #: 506-1 [facility] IN .R.#: [id number] Admission: 08/21/16 Attend Phys: Edwin Ledesma MD Discharge: Date of : 37 Report #: [id number] no evidence of thought disorder. He does not report auditory or visual hallucinations. He describes his symptoms to include decreased appetite and slight difficulty with short-term memory. He does not report difficulty with word finding, attention/concentration, sleep, mood or subjective anxiety or depression. Excessive use of alcohol was reported. He states he has discontinued alcohol use about 3-1/2 years ago. However, he is uncertain of that discontinuation date. He drinks approximately 2-3 glasses of vodka daily. His performance on the MMSE 2 brief version is within normal limits with a raw score of 15 of 16. Performance on the MMSE 2 standard version was within normal limits with a raw score of 29 of 30. The patient only missed 1 of 3 items after a brief time delay and distraction. He is able to draw a clock and set the hands at a designated time. His performance in verbal fluency was extremely low. Letter fluency was a raw score of 10 and a T score of 25, which is at the 1st percentile. Category fluency was a raw score of 14, T score 21, percentile rank of less than 1. Total fluency was a raw score 24 with a T score of 19 and percentile rank of less than 1. Extremely low functioning in letter and category fluency is noted. This suggests deficits in higher level executive functioning, planning and problem solving. His mood appears slightly irritable. The patient is likely frustrated with the extent of his medical condition and difficulty in recovery from the knee surgery. DIAGNOSTIC IMPRESSION: Neurocognitive disorder, unspecified, with mild irritability -- extent to be determined, likely in the mild to moderate range. Adjustment disorder with anxious mood. EXAMINATION FINDINGS: Verbal praise and complements about participation in therapies will be of benefit. He also should be occurred to describe any frustration that he might be having in regard to his recovery. The use of relaxation techniques may also be of benefit. Further discussion with his in regard to alcohol use may also be of benefit to clarify any continued use of alcohol, which should be discouraged. A followup neuropsych assessment upon discharge will also be of benefit to clarify the severity of cognitive deficits. Thank you very much for allowing me to provide the consultation on this patient. By: [id number] Elieser Stiles, PhD /nt
--- NOTE | ~2016-08-21 | HC ---
[facility] [place] [address] CONSULTATION Name: FLORIN HICKMAN Room #: 506-1 ADM IN M.R.#: [id number] Admission: 08/21/16 Attend Phys: Edwin Ledesma MD Discharge: Date of : 37 Report #: [id number] THIS REPORT FOR: //name// CC: Edwin Guerra DATE OF SERVICE: 08/25/2016 WOUND CARE CONSULTATION NOTE REASON FOR CONSULTATION: Wound infection with wound dehiscence of right knee total knee replacement wound. HISTORY OF PRESENT ILLNESS: The patient is a very pleasant 81-year-old non-diabetic gentleman with a history of degenerative arthritis, who did undergo right total knee replacement by Dr. Gonzales on 07/26/2016. The patient did well in the initial postoperative period; however, developed a fall and then had pain and swelling of the right knee. The patient developed leukocytosis and was found to have an infection of the right knee and on 08/09/2016, underwent incision and drainage of the right total knee replacement incision with polyethylene exchange. Postoperative course was complicated by upper gastrointestinal bleed from a duodenal ulcer. The patient was found to have MRSA infection of the right knee and Dr. Burciaga is consulted. Dr. Burciaga is managing the patient's antibiotic therapy. Wound care was consulted now for the wound which has opened and in its lower portion. PAST MEDICAL HISTORY: Paroxysmal atrial fibrillation, restless legs syndrome, history of diverticulitis, history of prostate cancer, hypertension, parotid tumor and recent duodenal ulcer with bleeds. The patient is non-diabetic. PAST SURGICAL HISTORY: Right total knee replacement, 07/26/2016. Incision and drainage of wound with polyethylene exchange, 08/09/2016. Bilateral inguinal herniorrhaphies, left parotidectomy, right total hip replacement, right cataract surgery and left total knee replacement. FAMILY HISTORY: Noncontributory. SOCIAL HISTORY: The patient is a nonsmoker, does not drink alcohol. ALLERGIES: No known drug allergies. MEDICATIONS: See chart. Antibiotics per Dr. Burciaga. LABORATORY DATA: White blood count 6.7, hemoglobin 8.1 and hematocrit 25.1. Creatinine is 0.7. [address] [address] CONSULTATION Name: FLORIN HICKMAN Room #: 506-1 ADM IN .R.#: [id number] Admission: 08/21/16 Attend Phys: Edwin Ledesma MD Discharge: Date of : 37 Report #: [id number] PHYSICAL EXAMINATION: GENERAL: Shows an elderly, somewhat debilitated 81-year-old gentleman who is alert and a good historian. HEENT: Mucous membranes are moist. NECK: Supple. LUNGS: Respirations are nonlabored. ABDOMEN: Soft. EXTREMITIES: Exam shows a fungal rash which is mild on the patient's left axilla. Examination of extremities shows previous left total knee replacement. Examination of the right knee shows a long 15+ cm linear scar over the right knee. Magness have been removed. There are Steri-Strips. There is some focal 1 x 1 cm area of erythema at the very upper end of the incision. Mid portion of the incision shows no erythema. At the lower edge of the incision, there is dehiscence of the skin and subcutaneous tissue with the wound measuring 4 cm long x 1.5 cm wide x 3 mm deep. There is no exposed connective tissue seen. There is some superficial exudate. There is some mild surrounding redness. IMPRESSION: 1. History of degenerative arthritis, status post left total knee replacement in the past, status post right total knee replacement on 07/26/2016. 2. Wound infection with wound dehiscence of right knee incision wound, status post incision and drainage with polyethylene exchange on August 09. 3. Methicillin-resistant Staphylococcus aureus culture from wound. 4. History of duodenal ulcer with upper gastrointestinal bleed. 5. Anemia secondary to history of duodenal ulcer with upper gastrointestinal bleed. 6. Obesity. PLAN: We will follow this patient along with Dr. Burciaga. Recommend antifungal cream to the patient's left axilla. For the right knee wound, we would recommend gentamicin 1% topical ointment with Aquacel Ag changed daily. Short dressing and Kerlix wrap. Wound care team will follow. <ELECTRONICALLY SIGNED> By: Ulises Pulliam MD 08/27/16 1005 1145 1415 Ulises Pulliam MD /nt
[2016-08-21 15:45] VITALS: BP 137/69
[2016-08-22 04:44] VITALS: BP 156/92
[2016-08-22 05:02] LABS: HEMATOCRIT 24.2 % (42.0-52.0); HEMOGLOBIN 8.1 gm/dL (14.0-18.0); MCH 28.8 pg (26.0-34.0); MCHC 33.4 g/dL (28.0-37.0); MCV 86.2 fL (80.0-100.0); RBC 2.81 mil/uL (4.50-6.00); RDW 15.7 % (10.5-14.5)
[2016-08-22 05:16] LABS: CALCIUM 7.5 mg/dL (8.5-10.1); CREATININE 0.7 mg/dL (0.7-1.3); POTASSIUM 3.6 mmol/L (3.5-5.1)
[2016-08-22 16:00] VITALS: BP 149/70
[2016-08-23 12:08] LABS: HEMOGLOBIN 8.5 gm/dL (14.0-18.0); MCH 28.4 pg (26.0-34.0); MCHC 32.9 g/dL (28.0-37.0); MCV 86.3 fL (80.0-100.0); RBC 3.01 mil/uL (4.50-6.00); RDW 15.5 % (10.5-14.5); WBC 12.1 thou/uL (4.0-11.0)
[2016-08-23 15:41] VITALS: BP 136/56
[2016-08-24 05:30] VITALS: BP 124/66
[2016-08-24 06:07] LABS: HEMATOCRIT 23.5 % (42.0-52.0); HEMOGLOBIN 7.8 gm/dL (14.0-18.0); MCH 28.6 pg (26.0-34.0); MCHC 33.3 g/dL (28.0-37.0); RBC 2.73 mil/uL (4.50-6.00); RDW 15.7 % (10.5-14.5)
[2016-08-24 15:48] LABS: HEMATOCRIT 26.8 % (42.0-52.0); HEMOGLOBIN 8.9 gm/dL (14.0-18.0)
[2016-08-24 17:36] VITALS: BP 168/89
[2016-08-24 20:30] VITALS: BP 127/58
[2016-08-25 05:51] VITALS: BP 146/72
[2016-08-25 06:10] LABS: HEMATOCRIT 25.1 % (42.0-52.0); HEMOGLOBIN 8.1 gm/dL (14.0-18.0); MCH 28.1 pg (26.0-34.0); MCHC 32.3 g/dL (28.0-37.0); MCV 86.9 fL (80.0-100.0); RBC 2.89 mil/uL (4.50-6.00); RDW 15.6 % (10.5-14.5); WBC 6.7 thou/uL (4.0-11.0)
[2016-08-25 06:17] LABS: CALCIUM 7.4 mg/dL (8.5-10.1)
[2016-08-25 08:36] VITALS: BP 140/85
[2016-08-25 16:00] VITALS: BP 118/62
[2016-08-26 06:06] LABS: HEMATOCRIT 24.4 % (42.0-52.0)
[2016-08-26 06:41] VITALS: BP 122/70
[2016-08-26 16:51] VITALS: BP 121/60
[2016-08-27 06:00] VITALS: BP 138/79
[2016-08-27 13:14] LABS: HEMATOCRIT 24.9 % (42.0-52.0); HEMOGLOBIN 8.2 gm/dL (14.0-18.0); MCH 28.2 pg (26.0-34.0); MCHC 32.9 g/dL (28.0-37.0); MCV 85.6 fL (80.0-100.0); PLATELET COUNT 254 thou/uL (150-400); RBC 2.91 mil/uL (4.50-6.00); RDW 16.1 % (10.5-14.5); WBC 6.3 thou/uL (4.0-11.0)
[2016-08-27 13:16] LABS: MANUAL DIFF YES
[2016-08-27 13:41] LABS: TOTAL CELL COUNT 100
[2016-08-27 13:42] LABS: ABSOLUTE NEUTROPHILS 4.9 thou/uL (1.4-8.2); ANISOCYTOSIS 1+
[2016-08-27 16:20] VITALS: BP 117/55
[2016-08-28 03:30] VITALS: BP 138/69
[2016-08-28 08:00] VITALS: BP 128/59
[2016-08-28 15:25] VITALS: BP 121/68
[2016-08-28 21:00] VITALS: BP 136/71
[2016-08-29 03:31] LABS: ABSOLUTE NEUTROPHILS 3.6 thou/uL (1.4-8.2); BASOPHILS 0.9 % (0.0-2.0); EOSINOPHILS 8.4 % (0.0-3.0); HEMATOCRIT 23.7 % (42.0-52.0); HEMOGLOBIN 7.6 gm/dL (14.0-18.0); LYMPHOCYTES 11.7 % (24.0-44.0); MCH 27.6 pg (26.0-34.0); MCHC 32.1 g/dL (28.0-37.0); MCV 86.1 fL (80.0-100.0); MONOCYTES 11.8 % (1.0-8.0); PLATELET COUNT 244 thou/uL (150-400); POLYS 67.2 % (36.0-66.0); RBC 2.75 mil/uL (4.50-6.00); RDW 15.9 % (10.5-14.5); WBC 5.4 thou/uL (4.0-11.0)
[2016-08-29 03:35] LABS: MANUAL DIFF NO
[2016-08-29 03:36] LABS: CALCIUM 7.6 mg/dL (8.5-10.1); CREATININE 0.9 mg/dL (0.7-1.3); POTASSIUM 4.1 mmol/L (3.5-5.1)
[2016-08-29 05:35] VITALS: BP 137/72
== END 2016-08-29 13:56 | disposition short-term general hospital (02) | DRG 559 ==
PROVIDERS: Hospitalist; Internal Medicine Endocrinology, Diabetes & Metabolism; Internal Medicine Gastroenterology; Nurse Practitioner Adult Health; Physical Medicine & Rehabilitation; Specialist
DX: Z47.1 Aftercare following joint replacement surgery (principal); J18.1 Lobar pneumonia, unspecified organism; T81.30XA Disruption of wound, unspecified, initial encounter; K92.2 Gastrointestinal hemorrhage, unspecified; I48.0 Paroxysmal atrial fibrillation; G25.81 Restless legs syndrome; G31.84 Mild cognitive impairment of uncertain or unknown etiology; M19.90 Unspecified osteoarthritis, unspecified site; I10 Essential (primary) hypertension; F43.22 Adjustment disorder with anxiety; Z96.651 Presence of right artificial knee joint; B95.62 Methicillin resistant Staphylococcus aureus infection as the cause of diseases classified elsewhere; R33.9 Retention of urine, unspecified; Z96.641 Presence of right artificial hip joint; Z96.652 Presence of left artificial knee joint; D64.9 Anemia, unspecified; E66.9 Obesity, unspecified; K26.9 Duodenal ulcer, unspecified as acute or chronic, without hemorrhage or perforation; K59.00 Constipation, unspecified; Z68.37 Body mass index [BMI] 37.0-37.9, adult; Z98.41 Cataract extraction status, right eye; Z85.46 Personal history of malignant neoplasm of prostate
CPT/HCPCS: 10112

== ENCOUNTER 2016-08-29 07:45 | Inpatient (IN) | payer OTHER ==
[~2016-08-29] VITALS: Ht 177.8 cm; Wt 88.5 kg
--- NOTE | ~2016-08-29 | O ---
[facility] [place] [address] OPERATIVE REPORT Name: FLORIN HICKMAN Room #: 537-P ADM IN M.R.#: [id number] Admission: 08/29/16 Attend Phys: Hasmukh Gonzales MD Discharge: Date of : 37 Report #: [id number] THIS REPORT FOR: //name// CC: Aneesh Gonzales DATE OF SERVICE: 08/29/2016 PREOPERATIVE DIAGNOSES: Chronic infection, right total knee arthroplasty. POSTOPERATIVE DIAGNOSES: 1. Chronic infection, right total knee arthroplasty. 2. Wound dehiscence, inferior portion of the right total knee arthroplasty. PROCEDURE: 1. Explantation of right total knee arthroplasty with placement of antibiotic cement spacer. 2. Placement of wound VAC over the wound and closure 25 cm in length. SURGEON: Hasmukh Gonzales MD CASTING MACHINE SET UP OPERATOR: Sandie Stewart PA-C ANESTHESIA: General endotracheal. TOURNIQUET TIME: 85 minutes. ESTIMATED BLOOD LOSS: 200 mL. COMPLICATIONS: None. SPECIMENS: Cultures were sent x 2. CONDITION UPON LEAVING THE OPERATING ROOM: Stable. INDICATIONS FOR PROCEDURE: The patient is a 81-year-old gentleman who is several weeks out from an I and D of a right total knee arthroplasty that was an acute postop infection. He has had persistent drainage from anterior portion of his wound as well as dehiscence and continued pain and erythema. He has been in rehab for this and over the past several days, the wound has gotten larger with more drainage. It was decided that he probably has now chronic infection in his total knee arthroplasty and needed explantation and placement of antibiotic cement spacer as far as two-stage revision. Details of this were discussed with him and his . They agreed with proceeding with explantation and placement of antibiotic cement spacer. [facility] [address] [place] [address] OPERATIVE REPORT Name: FLORIN HICKMAN DEBORAH Room #: 537-P [facility] IN M.R.#: [id number] Admission: 08/29/16 Attend Phys: Hasmukh Gonzales MD Discharge: Date of : 37 Report #: [id number] DESCRIPTION OF PROCEDURE: Risks, benefits, alternatives, complications were discussed in detail with the patient and patient's including but not limited to risk of continued infection, bleeding, failure of the procedure and need for above knee amputation if the infection is not controllable. Informed consent was obtained from the patient. The right knee was appropriately marked in the preoperative holding area. IV vancomycin as well as Zosyn were given. He was brought to the operating room and placed in supine position on operating room table. General endotracheal anesthesia was induced without complication. Tourniquet was placed on the right thigh. Right lower extremity was prepped and draped in normal sterile fashion. Timeout was performed properly identifying the patient and procedure as well as the instrumentation. All in the operating room were in agreement. Right lower extremity was elevated, tourniquet was inflated. Tourniquet time was 85 minutes. The previous scar was then opened with a 10 blade through the skin. Upon entering the deeper tissues, there was purulent fluid in the subcutaneous tissues. Cultures of this were taken and sent. The anterior portion of the wound had dehisced and underlying this was a patellar tendon. Skin along this edge was mobilized just above the fascia with a 10 blade and hopes to be able to close the wound at the end of the procedure. Fresh 10 blade was used to open the medial parapatellar arthrotomy and there was cloudy fluid in the knee joint. Cultures of this were taken. Fibrinous tissue was removed with a rongeur and the femoral tibial components were removed with combination of flexible as well as rigid osteotomes. The patellar component was removed with an oscillating saw. Upon removal of the tibial component, large portion of the posterior tibial plateau was removed along with the implant. The bony ends were thoroughly irrigated with normal saline using 9 liters of pulse lavage fluid with bacitracin mixed in. A gram of vancomycin with 1.2 grams of tobramycin was mixed in each bag of bone cement. Initially, the plan was for articulating spacer. The femoral component and the tibial component were made on the back table matching the explanted implants. However, trial of the implant showed that the knee would be under undue tension and the wound would not be closeable, so it was decided to go with a more static spacer. Another bag of cement was mixed and the tibial spacer was then cemented in place after this cement became doughy and less sticky. The tourniquet was deflated prior to placing antibiotic spacer to verify that there was no vascular compromise as was the case. After this, the fascia was closed with 0 PDS suture keeping the knee in full extension. Deep drain was placed prior to closure. The skin was closed with 2-0 nylon in combination of vertical mattress and horizontal mattress. The inferior portion of the wound was able to be closed under some tension. So it was decided to place a wound VAC in along the incision line and this was done using a standard wound VAC and an Adaptic over the incision line. Óscar wrap was applied. A knee immobilizer was applied. The patient tolerated this procedure well and went to the recovery room under the care of anesthesia postoperatively. <ELECTRONICALLY SIGNED> By: Hasmukh Gonzales MD 08/30/16 0729 [id number] Hasmukh Gonzales MD /cal
[2016-08-29 14:30] VITALS: BP 150/71
[2016-08-29 20:30] VITALS: BP 120/70
[2016-08-29 21:00] VITALS: BP 117/74
[2016-08-29 21:30] VITALS: BP 106/75
[2016-08-29 22:30] VITALS: BP 111/62
[2016-08-29 23:23] VITALS: BP 112/65
[2016-08-30 04:00] VITALS: BP 146/71
[2016-08-30 06:06] LABS: HEMATOCRIT 26.8 % (42.0-52.0); HEMOGLOBIN 8.6 gm/dL (14.0-18.0); MCHC 32.2 g/dL (28.0-37.0); RBC 3.08 mil/uL (4.50-6.00); RDW 15.8 % (10.5-14.5); WBC 9.8 thou/uL (4.0-11.0)
[2016-08-30 06:31] LABS: CALCIUM 7.2 mg/dL (8.5-10.1)
[2016-08-30 08:00] VITALS: BP 128/86
[2016-08-30 08:19] VITALS: BP 128/86
[2016-08-30 19:34] VITALS: BP 109/68
[2016-08-31 04:17] VITALS: BP 132/72
[2016-08-31 06:13] LABS: ABSOLUTE NEUTROPHILS 4.3 thou/uL (1.4-8.2); BASOPHILS 1.2 % (0.0-2.0); EOSINOPHILS 6.5 % (0.0-3.0); HEMATOCRIT 21.8 % (42.0-52.0); HEMOGLOBIN 7.2 gm/dL (14.0-18.0); LYMPHOCYTES 12.6 % (24.0-44.0); MCH 28.3 pg (26.0-34.0); MCHC 33.2 g/dL (28.0-37.0); MCV 85.2 fL (80.0-100.0); MONOCYTES 11.6 % (1.0-8.0); PLATELET COUNT 228 thou/uL (150-400); POLYS 68.1 % (36.0-66.0); RBC 2.56 mil/uL (4.50-6.00); RDW 15.9 % (10.5-14.5); WBC 6.4 thou/uL (4.0-11.0)
[2016-08-31 06:18] LABS: MANUAL DIFF NO
[2016-08-31 06:33] LABS: CALCIUM 7.4 mg/dL (8.5-10.1); CREATININE 1.1 mg/dL (0.7-1.3)
[2016-08-31 08:22] VITALS: BP 135/71
[2016-08-31 12:08] VITALS: BP 123/60; BP 153/82
[2016-08-31 15:15] VITALS: BP 142/78; BP 153/82; BP 155/86
[2016-08-31 19:25] VITALS: BP 122/76
[2016-09-01 04:19] LABS: HEMATOCRIT 27.6 % (42.0-52.0); HEMOGLOBIN 9.1 gm/dL (14.0-18.0); MCH 27.5 pg (26.0-34.0); MCHC 32.8 g/dL (28.0-37.0); MCV 83.9 fL (80.0-100.0); PLATELET COUNT 218 thou/uL (150-400); RBC 3.29 mil/uL (4.50-6.00); RDW 16.4 % (10.5-14.5); WBC 6.7 thou/uL (4.0-11.0)
[2016-09-01 04:27] LABS: CALCIUM 7.5 mg/dL (8.5-10.1); CREATININE 0.9 mg/dL (0.7-1.3)
[2016-09-01 04:28] LABS: MANUAL DIFF YES
[2016-09-01 04:55] VITALS: BP 131/66
[2016-09-01 05:40] LABS: ABSOLUTE NEUTROPHILS 5.3 thou/uL (1.4-8.2); ANISOCYTOSIS 1+; HYPOCHROMASIA SLIGHT; TOTAL CELL COUNT 100
[2016-09-01 08:15] VITALS: BP 149/89
[2016-09-01 16:03] VITALS: BP 147/83
[2016-09-01 18:59] VITALS: BP 134/75
[2016-09-02 02:46] VITALS: BP 149/81
[2016-09-02] MEDS ORDERED: ACETAMINOPHEN325 M1 PO (14:44)
[2016-09-02] MEDS ORDERED: OXYCODONE-APAP1 EAC6 PO (14:45)
[2016-09-02] MEDS ORDERED: AMBIEN 5 MG TABL5 M1 PO (14:45)
[2016-09-02] MEDS ORDERED: MAG-AL PLUS SUS30 ML PO (14:46)
[2016-09-02] MEDS ORDERED: K-DUR 20 MEQ T20 MEQ PO (14:46)
[2016-09-02] MEDS ORDERED: VISTARIL 25 MG25 M1 PO (14:46)
[2016-09-02] MEDS ORDERED: ONDANSETRON HCL4 M1 IV PUSH (14:47)
[2016-09-02] MEDS ORDERED: BISAC-EVAC10 MG RECTAL (14:47)
[2016-09-02] MEDS ORDERED: CARAFATE 11 GM/10 M1 PO (14:47)
[2016-09-02] MEDS ORDERED: NEXIUM40 MG PO (14:48)
[2016-09-02] MEDS ORDERED: REGLAN 5 MG TAB5 MG PO (14:48)
[2016-09-02] MEDS ORDERED: COLACE 100 MG100 MG PO (14:48)
[2016-09-02] MEDS ORDERED: SENNA PO (14:48)
[2016-09-02] MEDS ORDERED: MIRALAX17 GM PO (14:49)
[2016-09-02] MEDS ORDERED: PHENASEPTIC1 BOT MUCOUS MEM (14:49)
[2016-09-02] MEDS ORDERED: FLUSH IV PUSH (14:49)
[2016-09-02] MEDS ORDERED: CITRATE OF MAG296 ML PO (14:49)
[2016-09-02] MEDS ORDERED: MORPHINE 44 MG/1 ML IV PUSH (14:50)
[2016-09-02] MEDS ORDERED: CALCIUM 500 +1 EAC5 PO (14:50)
[2016-09-02] MEDS ORDERED: PROMETHAZI25 MG/1 M2 IM (14:51)
[2016-09-02] MEDS ORDERED: CASODEX 50 MG T50 M1 PO ×2 (14:51→17:34)
[2016-09-02] MEDS ORDERED: PACERONE 200 M200 M1 PO (14:51)
[2016-09-02] MEDS ORDERED: CARDIZEM CD240 MG PO (14:51)
[2016-09-02] MEDS ORDERED: FLOMAX0.4 MG PO (14:51)
[2016-09-02] MEDS ORDERED: RIFAMPIN 300 M300 M1 PO (14:51)
[2016-09-02] MEDS ORDERED: DIPHENHIST25 M1 PO (14:51)
[2016-09-02] MEDS ORDERED: VANCOMYCIN500 MG/VIA IV (17:28)
[2016-09-02] MEDS ORDERED: REQUIP 1 MG TABL1 M1 PO (17:29)
[2016-09-02] MEDS ORDERED: SENNA8.6 MG PO (17:30)
[2016-09-02] MEDS ORDERED: LASIX 20 MG TAB20 MG PO (17:30)
[2016-09-02] MEDS ORDERED: DULCOLAX10 MG RC (17:33)
[2016-09-02] MEDS ORDERED: REQUIP1 MG PO (17:33)
[2016-09-02] MEDS ORDERED: SENOKOT-S1 TA1 PO (17:33)
[2016-09-02] MEDS ORDERED: CALCIUM 600 +1 EAC1 PO (17:34)
[2016-09-02] MEDS ORDERED: NEURONTIN 300300 M1 PO (17:34)
[2016-09-02] MEDS ORDERED: CVS BUFFERED A325 MG PO (17:34)
[2016-09-02] MEDS ORDERED: PACERONE 200 M200 MG PO (17:55)
[2016-09-02] MEDS ORDERED: AMBIEN 5 MG TABL5 MG PO (17:56)
== END 2016-09-02 19:46 | DRG 463 ==
LOC: 5S 07:45
PROVIDERS: Internal Medicine; Orthopaedic Surgery
PROC: 0SPC0JZ Removal of Synthetic Substitute from Right Knee Joint, Open Approach (ICD-10-PCS; principal; 2016-08-29)
PROC: 0SHC08Z Insertion of Spacer into Right Knee Joint, Open Approach (ICD-10-PCS; 2016-08-29)
PROC: 30233N1 Transfusion of Nonautologous Red Blood Cells into Peripheral Vein, Percutaneous Approach (ICD-10-PCS; 2016-08-29)
DX: T84.53XA Infection and inflammatory reaction due to internal right knee prosthesis, initial encounter (principal); J18.9 Pneumonia, unspecified organism; K92.2 Gastrointestinal hemorrhage, unspecified; I48.91 Unspecified atrial fibrillation; L89.90 Pressure ulcer of unspecified site, unspecified stage; I10 Essential (primary) hypertension; D64.9 Anemia, unspecified; K59.00 Constipation, unspecified; L30.4 Erythema intertrigo; Z85.46 Personal history of malignant neoplasm of prostate; Z86.14 Personal history of Methicillin resistant Staphylococcus aureus infection; Z79.899 Other long term (current) drug therapy
CPT/HCPCS: 10785; 50010; 50101; 50415; 50643; 50934; 50954; 50972; 51130; 51225; 51771; 53000; 53078; 56525; 56528; 57095; 62110; 62900; 65002; 65090; 70005

== ENCOUNTER 2016-10-27 05:17 | Inpatient (IN) | payer OTHER ==
[2016-10-25 14:59] LABS: HEMOGLOBIN 10.6 gm/dL (14.0-18.0); MCH 25.8 pg (26.0-34.0); MCHC 32.1 g/dL (28.0-37.0); MCV 80.2 fL (80.0-100.0); RBC 4.11 mil/uL (4.50-6.00); RDW 14.4 % (10.5-14.5); WBC 6.5 thou/uL (4.0-11.0)
[2016-10-25 15:08] LABS: URINE BILIRUBIN NEGATIVE (Negative); URINE BLOOD NEGATIVE (Negative); URINE COLOR YELLOW; URINE GLUCOSE-RANDOM* NEGATIVE (Negative); URINE KETONES NEGATIVE (Negative); URINE LEUKOCYTES-REFLEX NEGATIVE (Negative); URINE PROTEIN (DIPSTICK) NEGATIVE (Negative); URINE UROBILINOGEN 0.2 E.U./dl (0.2-1.0)
[2016-10-25 15:11] LABS: ALBUMIN 3.8 g/dL (3.4-5.0); CREATININE 1.2 mg/dL (0.7-1.3); PROTIME 10.4 Seconds (9.3-11.4)
[2016-10-27] VITALS (8 sets, daily range): BP systolic 105–141; BP diastolic 60–70
[~2016-10-27] VITALS: Ht 177.8 cm; Wt 95.3 kg
--- NOTE | ~2016-10-27 | HC ---
[facility] [place] [address] CONSULTATION Name: FLORIN HICKMAN Room #: 405-P [facility] IN M.R.#: [id number] Admission: 10/27/16 Attend Phys: Hasmukh Gonzales MD Discharge: 11/01/16 Date of : 37 Report #: [id number] THIS REPORT FOR: //name// CC: Aneesh Gonzales DATE OF SERVICE: 11/01/2016 HISTORY OF PRESENT ILLNESS: The patient is a 81-year-old white male previously known to me who had a prior right total knee replacement on 07/26/2016. He then had problems with an infection, had an I and D with polyethylene exchange on 08/09/16. He was on the acute inpatient rehab [place] at that time. He was progressing in his therapies, but with worsening infectious changes regarding that he ended up being transferred off the rehab nguyen and underwent antibiotics spacer placement on 08/29/2016. [facility] then [facility] a [facility] a [facility] stay. He has been readmitted on 10/27/2016 and underwent reimplantation of the right total knee replacement. Cultures have been negative so far. He is limited to utilizing a knee orthostasis with restriction of flexion to 30 degrees involving the right lower extremity. We are seeing him in rehabilitation medicine consultation. PAST MEDICAL HISTORY: Includes the above as noted. He also has a history of paroxysmal atrial fibrillation and restless legs syndrome, diverticulitis, degenerative arthritis, prosthesis cancer, hypertension, carotid tumor. PAST SURGICAL HISTORY: As noted above. FAMILY HISTORY: Noncontributory. MEDICATIONS: Please see the full medication listing. HABITS: No history of tobacco abuse, did quit drinking alcohol several years ago. ALLERGIES: No known drug allergies. SOCIAL HISTORY: Lives in a house with his . He can get through the ____ going one step in. He used a cane mostly occasional walker. He does have a lift chair, but tried to limit sitting in it. REVIEW OF SYSTEMS: No complaints of chest pain, shortness of breath, abdominal discomfort. PHYSICAL EXAMINATION: GENERAL: A 81-year-old white male in no obvious distress. VITAL SIGNS: Last recorded temperature is 98.2, pulse 81, respirations 18, [facility] [address] [place] [address] CONSULTATION Name: FLORIN HICKMAN Room #: [address] [place] [address] IN M.R.#: [id number] Admission: 10/27/16 Attend Phys: Hasmukh Gonzales MD Discharge: 11/01/16 Date of : 37 Report #: [id number] blood pressure 134/63. NEUROLOGIC: Alert, facies appeared to be symmetric. EXTREMITIES: Functional range of motion of both upper extremities without obvious focal weakness. Right knee is dressed. I did not examine. He can move the right foot without obvious distal lower extremity weakness. Functional range of motion of the left lower extremity without obvious focal weakness. He is transferring with mod assist. He did ambulate up to 180 feet contact guard with a front-wheeled walker. ASSESSMENT: A 81-year-old white male with the following problems: 1. Infected right total knee arthroplasty, now status post reimplantation, 10/27/2016. 2. Functional mobility and ADL deficits. 3. Paroxysmal atrial fibrillation. 4. Restless legs syndrome. 5. Degenerative arthritis. 6. Hypertension. PLAN: Discussion with case management. Agree with prison facility discharge as is being arranged. Thank you for asking us to assist in this patient's care. By: [id number] Edwin Ledesma MD /
--- NOTE | ~2016-10-27 | O ---
[facility] [place] [address] OPERATIVE REPORT Name: FLORIN HICKMAN Room #: 405-P ADM IN M.R.#: [id number] Admission: 10/27/16 Attend Phys: Hasmukh Gonzales MD Discharge: Date of : 37 Report #: [id number] THIS REPORT FOR: //name// CC: Aneesh Gonzales DATE OF SERVICE: 10/27/2016 PREOPERATIVE DIAGNOSIS: Infected right knee arthroplasty, status post antibiotic spacer. POSTOPERATIVE DIAGNOSIS: Infected right knee arthroplasty, status post antibiotic spacer. PROCEDURE: Reimplantation for right total knee arthroplasty. SURGEON: Hasmukh Gonzales M.D. DIRECTOR TELECOMMUNICATIONS: Sandie Stewart PA-C. ANESTHESIA: General with an adductor canal block. IMPLANTS: Ayala and Nephew size 6 Legion Oxinium revision femur with a size 5 mm medial distal wedge, a size 20 x 20 mm press-fit hip. Tibial component was a size 5 Legion revision tibia with a 15 x 120 mm press-fit stem, size 32 patella and size 9 highly-constrained polyethylene. TOURNIQUET TIME: 2 hours 16 minutes. ESTIMATED BLOOD LOSS: 150 mL. SPECIMENS: Cultures as well as intraoperative frozen section were taken. COMPLICATIONS. There was a partial avulsion of the patellar tendon that was repaired at the end of the surgery. CONDITION UPON LEAVING THE OPERATING ROOM: Stable. INDICATIONS FOR PROCEDURE: The patient is a 81-year-old gentleman who previously has had a right total knee arthroplasty. He developed an MRSA infection in this and ultimately underwent explantation with placement of antibiotic cement spacer. He has been on IV antibiotics and his labs have normalized and we felt that it was time to attempt reimplantation. DESCRIPTION OF PROCEDURE: Risks, benefits, alternatives and complications were discussed in detail with the patient and the patient's , including but not [facility] [address] [place] [address] OPERATIVE REPORT Name: FLORIN HICKMAN Room #: 405-P [facility] IN .R.#: [id number] Admission: 10/27/16 Attend Phys: Hasmukh Gonzales MD Discharge: Date of : 37 Report #: [id number] limited to risk of anesthesia; risk of damage to nerves, arteries or blood vessels; risk for continued infection, bleeding and need for reoperation. Informed consent was obtained from the patient. The right knee was appropriately marked in the preoperative holding area. IV vancomycin was given for preoperative antibiotics. Adductor canal block was placed by anesthesia. He was brought to the operating room and placed in the supine position on the operating room table. General endotracheal anesthesia was induced without complication. Tourniquet was placed on the right thigh. Right lower extremity was prepped and draped in normal sterile fashion. Timeout was performed, properly identifying the patient, procedure as well as the instrumentation and implants. All in the operating room were in agreement. The right lower extremity was elevated and tourniquet was inflated. Tourniquet time was 2 hours and 16 minutes. The previous scar was then used and incision was made with a 10 blade through the skin down to the fascia. Deep flaps were developed medially and laterally. Distally around the incision, there was significant scarring and adherence of the skin to the underlying tissue and this was mobilized sharply. Fresh 10 blade was used to make a medial parapatellar arthrotomy and the knee fluid was sent for culture. The medial and lateral gutters were reestablished and several samples of the synovium were then sent to pathology for an intraoperative frozen section. This revealed 5 white cells per high-powered field and it was decided to proceed with revision surgery at this point. The antibiotic cement spacer was removed with osteotomes and fibrinous tissue was curetted off of the femur and the tibia as well as the patella. After this, a drill was used to expand the intramedullary canal of the femur and the tibia. We went up to a size 15 on the tibia and size 20 on the femur. After this, the tibial resection guide was placed and tibial resection was made for a cleanout cut. This was then trialed with a size 5 tibia, which had good fit using the neutral collet. A size 5 tibia with a 120 mm stem trial was then placed and seated. Attention was turned to the femur. The 20 mm reamer was left in place and a cleanout cut was made. It was determined that we would need a 5 mm distal wedge on the femur. After this, the offset process development chemist was used and it was determined that a 4 offset process development chemist in the 9 o'clock position was the best fit. Anterior, posterior and chamfer cuts were then made. The femoral trial was built on the back table and placed on the femur. Box cut was made, post was placed and this was trialed with a 9 polyethylene highly constrained. Knee was taken through range of motion and found to be stable and found to have good balance in flexion and extension. A cleanout cut of the patella was made freehand with the oscillating saw and a size 32 patellar trial was placed. At some point during the case, there was noted to be a partial motion of the tibial tubercle, including a partial avulsion of the patellar tendon. It was felt that this could be repaired at the end of the case using FiberWire. Knee was taken through range of motion and found to be stable and found to have good balance in [address] [address] OPERATIVE REPORT Name: FLORIN HICKMAN Room #: 405-P [facility] IN M.R.#: [id number] Admission: 10/27/16 Attend Phys: Hasmukh Gonzales MD Discharge: Date of : 37 Report #: [id number] flexion and extension. Trial components were removed and bony ends were thoroughly irrigated with normal saline. The final implants were assembled on the back table and cemented in place using standard cementation techniques. After the cement cured, the tourniquet was deflated and hemostasis was obtained with Bovie cautery. A final size 9 highly constrained polyethylene was placed. The deep drain was placed. The partial tibial tubercle avulsion was then repaired surgery through the holes in the tibial tubercle with a cerclage. FiberWire going around the avulsion which reduced this nicely. The fascia was closed with 0 Vicryl, skin was closed with 2-0 Vicryl and 3-0 nylon and a Prevena dressing was applied. The patient tolerated this procedure well and went to the recovery room under the care of anesthesia postoperatively. <ELECTRONICALLY SIGNED> By: Hasmukh Gonzales MD 10/28/16 1445 1241 1401 Hasmukh Gonzales MD /nt
--- NOTE | ~2016-10-27 | S ---
[facility] [place] [address] SURGICAL PATH RPT PROCEDURE Name: FLORIN ISAAC Room #: 405-P ADM IN M.R.#: [id number] Admission: 10/27/16 Date of : 37 Discharge: Report #: [id number] Path Case #: [id number] PATHOLOGY REPORT COLLECTION DATE: 10/27/2016 RECEIVED DATE: 10/27/2016 SUBMITTING PHYS: Dr. Hasmukh Gonzales OTHER PHYS: Dr. Aneesh Guerra SPECIMEN(S) RECEIVED: A.Right knee synovium 1 B.Right knee synovium 2 C.Right knee synovium 3 D.Right knee synovium 4 * * * * * * * * * * * * FINAL DIAGNOSIS: A. "Right knee synovium 1", synovial biopsy: - Synovium with reactive synovial hyperplasia, dystrophic calcifications and mild chronic inflammation; no significant acute inflammation seen (less than 3 neutrophils per 1 high power field). B. "Right knee synovium 2", synovial biopsy: - Synovium with reactive synovial hyperplasia, dystrophic calcifications, foreign body type giant cell response and mild chronic inflammation; no significant acute inflammation seen (less than 3 neutrophils per 1 high power field). C. "Right knee synovium 3", synovial biopsy: - Synovium with reactive synovial hyperplasia, dystrophic calcifications, foreign body type giant cell response and mild chronic inflammation; no significant acute inflammation seen (less than 3 neutrophils per 1 high power field). D. "Right knee synovium 4", synovial biopsy: - Synovium with reactive synovial hyperplasia, dystrophic calcifications and mild chronic inflammation; no significant acute inflammation seen (less than 3 neutrophils per 1 high power field). (CLW:pit; 10/31/2016) PATHOLOGIST: Elza Gama M.D. REPORT ELECTRONICALLY SIGNED BY: Elza Gama M.D. DATE/TIME: 10/31/2016 22:22 * * * * * * * * * * * * GROSS PATHOLOGY: A. The first specimen is received fresh from the OR labeled, "Florin Isaac and right knee synovium #1". It consists of two fragments of irregularly shaped ugia-ceb-vhccu synovial tissue [address] [address] SURGICAL PATH RPT PROCEDURE Name: FLORIN ISAAC Room #: 405-P ADM IN M.R.#: [id number] Admission: 10/27/16 Date of : 37 Discharge: Report #: [id number] Path Case #: [id number] measuring 3 x 2 x 1.5 cm in aggregate. Risk Compliance Manager tissue is submitted for one frozen section. The frozen section is then submitted as A1. B. The second specimen is received fresh from the OR labeled, "Florin Isaac and right knee synovium #2". It consists of two irregularly shaped pink-hinson to red-brown synovial tissue measuring 3.5 x 1.5 x 0.8 cm in aggregate. The entire specimen is submitted for one frozen section. The frozen section is then submitted as B1. C. The third specimen is received fresh from the OR labeled, "Florin Isaac and right knee synovium #3". It consists of a single fragment of kuqn-lpz-zhzhf synovial tissue measuring 2.3 x 1.4 x 0.2 cm. It is entirely submitted for one frozen section. The frozen section is then submitted as C1. D. The fourth specimen is received fresh from the OR labeled, "Florin Isaac and right knee synovium #4". It consists of a single fragment of irregularly shaped mnbh-jic-ciojr synovial tissue measuring 2.5 x 1.8 x 1.0 cm. It is entirely submitted for one frozen section. The frozen section is then submitted as D1. (CLW:nuris; 10/27/2016) FROZEN SECTION DIAGNOSIS: FROZEN SECTION DIAGNOSES (Dr. Elza Gama) A. "Right knee synovium #1": - No significant acute inflammation (less than 5 pmn/1 hpf). B. "Right knee synovium #2": - No significant acute inflammation (less than 5 pmn/1 hpf). C. "Right knee synovium #3": - No significant acute inflammation (less than 5 pmn/1 hpf). D. "Right knee synovium #4": - No significant acute inflammation (less than 5 pmn/1 hpf). The case was discussed with Dr. Hasmukh Gonzales in the OR and written reports are placed in the patient's chart. Testing performed by [facility] at [address] [place] [address] (CLW:nuris; 10/27/2016) CLINICAL HISTORY: Total knee revision/right knee OA INITIAL CPT CODE(S): A; 13006, 89505 B; 97746, 09571 C; 83667, [address] [address] SURGICAL PATH RPT PROCEDURE Name: FLORIN ISAAC Room #: 405-P ADM IN M.R.#: [id number] Admission: 10/27/16 Date of : 37 Discharge: Report #: [id number] Path Case #: [id number] D; 76204, [address] Professional services performed by [facility] at [address] [place] [address] [address], [place] [address] Technical services performed by [facility] at [address] [place] [address], [facility] [address] [address]. [facility] [address] [place] [address] PHONE: [phone] DIRECTOR: Marcus Cortés M.D. * * * END OF REPORT * * *
[~2016-10-27 05:17] MED LIST changes: +ACETAMINOPHEN325 M1 PO; +ALMACONE LIQUI355 ML PO; +AMBIEN 5 MG TABL5 M1 PO; +AMBIEN 5 MG TABL5 MG PO; +ARTIFICIAL TEA1 EACH OPHTHALMIC; +ASPIR 8181 MG PO; +BENADRYL ALLERG25 MG PO; +BISAC-EVAC10 MG RECTAL; +BISACODYL SUPP10 MG RECTAL; +CALCIUM 500 +1 EAC5 PO; +CARAFATE 11 GM/10 M1 PO; +CARDIZEM CD240 MG PO; +CARDIZEM LA240 M1 PO; +CITRATE OF MAG296 ML PO; +COLACE 100 MG100 MG PO; +DIPHENHIST25 M1 PO; +FLOMAX0.4 MG PO; +FLUSH IV PUSH; +HYDROXYZINE HCL25 M2 PO; +K-DUR 20 MEQ T20 MEQ PO; +LASIX 20 MG TAB20 MG PO; +LINZESS145 MCG PO; +MORPHINE 44 MG/1 ML IV PUSH; +NEXIUM40 MG PO; +ONDANSETRON HCL4 M1 IV PUSH; +OXYCODONE-ACET1 EAC5 PO; +OXYCODONE-APAP1 EAC6 PO; +OYSTER SHELL C1 EAC3 PO; +PACERONE 200 M200 MG PO; +PHENASEPTIC1 BOT MUCOUS MEM; +POTASSIUM20 PO; +PROMETHAZI25 MG/1 M2 IM; +PROTONIX40 M4 PO; +REGLAN 5 MG TAB5 MG PO; +REQUIP 1 MG TABL1 M1 PO; +RIFADIN300 MG PO; +RIFAMPIN 300 M300 M1 PO; +ROPINIROLE HCL2 MG PO; +SENNA PO; +SENNA-LAX8.6 MG PO; +SENNA8.6 MG PO; +TYLENOL325 MG PO; +VANCOMYCIN500 MG/VIA IV; +VISTARIL 25 MG25 M1 PO
[2016-10-28 00:26] VITALS: BP 93/52
[2016-10-28 03:16] VITALS: BP 111/54
[2016-10-28 03:59] LABS: HEMATOCRIT 24.3 % (42.0-52.0); MCH 25.8 pg (26.0-34.0); MCV 80.7 fL (80.0-100.0); RBC 3.01 mil/uL (4.50-6.00); RDW 14.3 % (10.5-14.5); WBC 10.2 thou/uL (4.0-11.0)
[2016-10-28 04:02] LABS: HEMOGLOBIN 7.8 gm/dL (14.0-18.0)
[2016-10-28 08:00] VITALS: BP 1105/60
[2016-10-28 08:56] LABS: CALCIUM 8.2 mg/dL (8.5-10.1); CREATININE 1.1 mg/dL (0.7-1.3); POTASSIUM 4.9 mmol/L (3.5-5.1)
[2016-10-28 17:57] VITALS: BP 115/61
[2016-10-28 20:00] VITALS: BP 103/62
[2016-10-29 04:00] VITALS: BP 144/69
[2016-10-29 06:44] LABS: HEMATOCRIT 22.7 % (42.0-52.0); HEMOGLOBIN 7.3 gm/dL (14.0-18.0); MCH 25.9 pg (26.0-34.0); MCV 80.8 fL (80.0-100.0); RBC 2.81 mil/uL (4.50-6.00); RDW 14.3 % (10.5-14.5); WBC 8.6 thou/uL (4.0-11.0)
[2016-10-29 06:55] LABS: CALCIUM 8.3 mg/dL (8.5-10.1); CREATININE 1.1 mg/dL (0.7-1.3); POTASSIUM 4.9 mmol/L (3.5-5.1)
[2016-10-29 11:36] VITALS: BP 134/61
[2016-10-29 18:47] VITALS: BP 118/61
[2016-10-29 20:00] VITALS: BP 120/64
[2016-10-30 04:00] VITALS: BP 125/79
[2016-10-30 05:32] LABS: HEMATOCRIT 21.3 % (42.0-52.0); HEMOGLOBIN 6.9 gm/dL (14.0-18.0); MCH 25.9 pg (26.0-34.0); MCHC 32.3 g/dL (28.0-37.0); MCV 80.2 fL (80.0-100.0); RBC 2.65 mil/uL (4.50-6.00); RDW 14.1 % (10.5-14.5); WBC 7.3 thou/uL (4.0-11.0)
[2016-10-30 05:46] LABS: CALCIUM 8.7 mg/dL (8.5-10.1); POTASSIUM 4.9 mmol/L (3.5-5.1)
[2016-10-30 09:02] VITALS: BP 140/82
[2016-10-30 13:35] LABS: HEMATOCRIT 24.7 % (42.0-52.0); HEMOGLOBIN 7.9 gm/dL (14.0-18.0); MCH 25.6 pg (26.0-34.0); MCHC 31.8 g/dL (28.0-37.0); MCV 80.6 fL (80.0-100.0); RBC 3.07 mil/uL (4.50-6.00); RDW 14.6 % (10.5-14.5); WBC 7.6 thou/uL (4.0-11.0)
[2016-10-30 16:35] VITALS: BP 100/57
[2016-10-30 20:29] VITALS: BP 132/71
[2016-10-31 08:10] VITALS: BP 134/63
[2016-10-31 19:03] VITALS: BP 117/60
[2016-11-01 04:17] VITALS: BP 112/69
[2016-11-01] MEDS ORDERED: HYDROCODON-ACE1 EAC7 PO (09:48)
[2016-11-01] MEDS ORDERED: MS CONTIN15 MG PO (09:48)
== END 2016-11-01 15:13 | DRG 470 ==
LOC: TBA 05:17 → 4N 05:17 → PRE 11:55 → 4N 13:00 → PRE 13:17 → 4N 11-01 15:13
PROVIDERS: Internal Medicine; Orthopaedic Surgery
PROC: 0SRC0J9 Replacement of Right Knee Joint with Synthetic Substitute, Cemented, Open Approach (ICD-10-PCS; principal; 2016-10-27)
DX: T84.53XA Infection and inflammatory reaction due to internal right knee prosthesis, initial encounter (principal); D62 Acute posthemorrhagic anemia; A49.02 Methicillin resistant Staphylococcus aureus infection, unspecified site; I48.0 Paroxysmal atrial fibrillation; G25.81 Restless legs syndrome; N40.0 Benign prostatic hyperplasia without lower urinary tract symptoms; M19.90 Unspecified osteoarthritis, unspecified site; I10 Essential (primary) hypertension; Y83.8 Other surgical procedures as the cause of abnormal reaction of the patient, or of later complication, without mention of misadventure at the time of the procedure; K59.00 Constipation, unspecified; Z96.643 Presence of artificial hip joint, bilateral; Y92.89 Other specified places as the place of occurrence of the external cause
CPT/HCPCS: 10790; 50010; 50101; 50415; 50953; 50954; 51130; 51225; 51412; 51771; 53000; 53078; 53337; 54118; 55375; 56525; 56527; 56528; 56530; 57095; 62110; 62900; 70005

== ENCOUNTER 2017-07-28 12:05 | Inpatient (IN) | payer OTHER ==
[~2017-07-28] VITALS: Ht 162.6 cm; Wt 89.4 kg
--- NOTE | ~2017-07-28 | EKG ---
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 : 1935 Requested By: Tamiko Farah Order Number: [id number] MD: Rickey Harrell Measurements Intervals [place] Rate: 65 P: -2 WI: 260 QRS: -23 QRSD: 129 T: 0 QT: 460 QTc: 479 Interpretive Statements Sinus rhythm Prolonged WI interval IVCD, consider atypical RBBB Compared to ECG 08/15/2016 02:04:54 First degree AV block now present Sinus tachycardia no longer present Ventricular premature complex(es) no longer present Left-axis deviation no longer present Electronically Signed On 07-29-2017 7:49:24 CDT by Rickey Harrell [email or web address] <ELECTRONICALLY SIGNED> By: Rickey Harrell MD 07/29/17 0749 1216 1216 Rickey Harrell MD /EPI
[~2017-07-28 12:05] MED LIST changes: +HYDROCODON-ACE1 EAC7 PO
[2017-07-28 12:06] VITALS: BP 162/90
[2017-07-28 12:32] LABS: ABSOLUTE NEUTROPHILS 9.7 thou/uL (1.4-8.2); BASOPHILS 0.2 % (0.0-2.0); HEMATOCRIT 36.2 % (42.0-52.0); LYMPHOCYTES 2.5 % (24.0-44.0); MCH 26.8 pg (26.0-34.0); MCHC 33.1 g/dL (28.0-37.0); MONOCYTES 2.8 % (1.0-8.0); PLATELET COUNT 231 thou/uL (150-400); POLYS 94.5 % (36.0-66.0); RBC 4.47 mil/uL (4.50-6.00); RDW 13.5 % (10.5-14.5); WBC 10.3 thou/uL (4.0-11.0)
[2017-07-28 12:42] LABS: ANION GAP 10 mmol/L (7-16); BUN 12 mg/dL (7-18); CALCIUM 9.5 mg/dL (8.5-10.1); CHLORIDE 93 mmol/L (98-107); CO2 24 mmol/L (21-32); GLUCOSE 151 mg/dL (74-106); SODIUM 127 mmol/L (136-145)
[2017-07-28 12:51] LABS: TROPONIN-I < 0.04 ng/mL (<0.06)
[2017-07-28] MEDS ORDERED: AMBIEN 5 MG TABL5 M1 PO (13:41)
[2017-07-28] MEDS ORDERED: NEURONTIN 300300 M1 PO (13:41)
[2017-07-28] MEDS ORDERED: ASPIR 8181 MG PO (13:42)
[2017-07-28] MEDS ORDERED: REQUIP XL2 MG PO (13:42)
[2017-07-28 14:06] VITALS: BP 138/74
[2017-07-28 14:32] LABS: CHOLESTEROL 171 mg/dL (<200); HDL CHOLESTEROL 69 mg/dL (>40); LDL CHOLESTEROL 95 mg/dL (<100); TC:HDL 2.5 Ratio (Not establshd); TRIGLYCERIDE 39 mg/dL (<150); VLDL 8 mg/dL (<40)
[2017-07-28 14:54] VITALS: BP 157/77
[2017-07-28 14:59] LABS: TSH 1.577 uIU/mL (0.358-3.740)
[2017-07-28 15:43] LABS: FOLIC ACID 28.6 ng/mL (8.6-58.9)
[2017-07-28 21:43] VITALS: BP 139/102
[2017-07-29 05:02] LABS: CALCIUM 8.4 mg/dL (8.5-10.1); PHOSPHORUS 3.5 mg/dL (2.5-4.9); POTASSIUM 3.8 mmol/L (3.5-5.1)
[2017-07-29 07:40] VITALS: BP 148/73
[2017-07-29 11:59] VITALS: BP 148/73
== END 2017-07-29 14:02 | disposition home or self-care (01) | DRG 641 ==
LOC: ER 12:05 → 4N 13:49 → EROBS 13:49 → 4N 14:39 → EROBS 15:09 → 4N 15:18 → SICU 16:26 → 4N 16:30
PROVIDERS: Emergency Medicine; Hospitalist
DX: E87.1 Hypo-osmolality and hyponatremia (principal); I10 Essential (primary) hypertension; M19.90 Unspecified osteoarthritis, unspecified site; I48.91 Unspecified atrial fibrillation; G25.81 Restless legs syndrome; Z96.641 Presence of right artificial hip joint; Z96.653 Presence of artificial knee joint, bilateral; Z85.46 Personal history of malignant neoplasm of prostate; Z85.828 Personal history of other malignant neoplasm of skin; Z92.21 Personal history of antineoplastic chemotherapy; Z92.3 Personal history of irradiation; Z98.41 Cataract extraction status, right eye; Z79.82 Long term (current) use of aspirin; Z79.899 Other long term (current) drug therapy
CPT/HCPCS: 10790

== ENCOUNTER 2018-05-01 09:12 | Inpatient (IN) | payer OTHER ==
[~2018-05-01] VITALS: Ht 177.8 cm; Wt 95.9 kg
[2018-05-01 09:13] VITALS: BP 156/86
[2018-05-01 11:12] LABS: MCH 26.3 pg (26.0-34.0); MCHC 32.1 g/dL (28.0-37.0)
[2018-05-01 11:14] LABS: ABSOLUTE NEUTROPHILS 10.4 thou/uL (1.4-8.2); BASOPHILS 0.5 % (0.0-2.0); EOSINOPHILS 0.4 % (0.0-3.0); HEMATOCRIT 37.7 % (42.0-52.0); HEMOGLOBIN 12.1 gm/dL (14.0-18.0); LYMPHOCYTES 6.1 % (24.0-44.0); MCV 81.8 fL (80.0-100.0); PLATELET COUNT 208 thou/uL (150-400); RBC 4.61 mil/uL (4.50-6.00); RDW 13.7 % (10.5-14.5)
[2018-05-01 11:21] LABS: CALCIUM 9.3 mg/dL (8.5-10.1); CREATININE 0.9 mg/dL (0.7-1.3); POTASSIUM 4.1 mmol/L (3.5-5.1)
[2018-05-01 11:23] LABS: APTT 28.5 Seconds (24.5-32.8); PROTIME 10.7 Seconds (9.3-11.4)
[2018-05-01 11:27] LABS: ALBUMIN 3.7 g/dL (3.4-5.0); MAGNESIUM 1.9 mg/dL (1.8-2.4); TOTAL BILIRUBIN 0.9 mg/dL (<0.1-1.0); TOTAL PROTEIN 7.4 g/dL (6.4-8.2)
[2018-05-01] MEDS ORDERED: CALCIUM CARBON600 MG PO (14:43)
[2018-05-01] MEDS ORDERED: IRON325 PO (14:43)
--- NOTE | 2018-05-01 16:50 | EKG ---
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 : 1935 Requested By: Vitaliy Roper Order Number: [id number] MD: Rickey Harrell Measurements Intervals [place] Rate: 67 P: -1 ME: 261 QRS: -28 QRSD: 123 T: 1 QT: 455 QTc: 481 Interpretive Statements Sinus rhythm Atrial premature complex Prolonged ME interval Baseline wander in lead(s) V6 Compared to ECG 07/28/2017 12:16:08 Atrial premature complex(es) now present Electronically Signed On 05-01-2018 16:49:53 SECTION GANG WORKER by Rickey Harrell [email or web address] ��������������������������������������������� <ELECTRONICALLY SIGNED> ���������������������������������������� By: Rickey Harrell MD ��������������������������������������������� 05/01/18 1649 1013 1013 Rickey Harrell MD /EPI
[2018-05-01 21:52] VITALS: BP 136/74
[2018-05-01 22:27] VITALS: BP 136/74
[2018-05-01 23:00] VITALS: BP 156/82
[2018-05-02 04:30] VITALS: BP 134/70
--- NOTE | 2018-05-02 04:58 | NUR ---
Pt came up to unit approx 2230. Pt appears to be confused up on the unit. His confusion is getting better throughout the shift. Scheduled pain meds administered. Pt voids in the urinal. Unable to sign surgery consent at this time. Will assess pt cognition in the am. If pt unable to sign, his will be here in the am. Will continue to monitor. Fall precautions in place.
[2018-05-02 06:04] LABS: HEMATOCRIT 37.7 % (42.0-52.0); HEMOGLOBIN 11.8 gm/dL (14.0-18.0); MCH 25.7 pg (26.0-34.0); MCHC 31.3 g/dL (28.0-37.0); MCV 82.2 fL (80.0-100.0); RBC 4.59 mil/uL (4.50-6.00); RDW 13.5 % (10.5-14.5); WBC 25.6 thou/uL (4.0-11.0)
[2018-05-02 06:09] LABS: CALCIUM 8.8 mg/dL (8.5-10.1); CREATININE 1.3 mg/dL (0.7-1.3); POTASSIUM 4.4 mmol/L (3.5-5.1)
--- NOTE | 2018-05-02 10:59 | NUR ---
PT RETURNED FROM SURGERY AT THIS TIME.
--- NOTE | 2018-05-02 11:48 | NUR ---
V'S 97.2 18 84 115/72 FOR PATIENT BACK FROM SURGERY.
--- NOTE | 2018-05-02 15:55 | NUR ---
INITIAL ASSESSMENT: Pt evaluated for d/c planning needs. Reviewed chart and spoke with nurse, pt and pt's son. Pt is alert and oriented at baseline, but is confused today. Pt lives in house with spouse and was independent with ADl's prior to admission to the hospital. Pt uses cane or walker for ambulation. Pt is doing the driving. Pt has had [facility] in the past. Pt has been to [facility] in the past and wants to go there for SNF on d/c from hospital. Asked medical planner to fax referral to [facility]. Will remain available to assist as needed.
[2018-05-02 16:02] VITALS: BP 105/64
--- NOTE | 2018-05-02 16:51 | NUR ---
FAXED REFERRAL TO [facility] OP SPOKE WITH ANAND IN ADM. SHE WILL REVIEW REFERRAL DCP TO FAX PT/OT NOTES ONCE AVAILABLE. ANTICIPATE POSS. DC IN 2 DAYS. DCP TO FOLLOW.
[2018-05-02 19:54] VITALS: BP 128/96
--- NOTE | 2018-05-02 21:32 | NUR ---
Assumed care of pt at 1900. Pt post-op left hip. Scheduled pain med, antibiotic, and IVF administered. Fall precautions in place. Report given to jules shankar.
--- NOTE | 2018-05-03 03:24 | NUR ---
PT GIVEN DIALUDED FOR PAIN DURING THE NIGHT PT WAS ABLE TO GET SOME SLEEP DURING THE NIGHT FALL PERCAUTIONS PUT INTO PLACE.
[2018-05-03 03:40] VITALS: BP 145/86
--- NOTE | 2018-05-03 06:45 | NUR ---
PT BLADDER SCANED FOR 500ML PT UNABLE TO VOID PT HAS ENLARGED PROSTATE ORDERS RECIEVED FOR DEAL.
[2018-05-03 07:15] VITALS: BP 125/80
--- NOTE | 2018-05-03 08:18 | NUR ---
A70X4, HUMOROUS SPIRITS, DEAL JUST PLACED THIS A.M., IV MACHINE BEEPING, WILL FIND NEW CORD, C/O SOME NAUSEA, INGESTING CL SLOWLY, USING CALL LIGHT FOR NEEDS. C/O PAIN REJI HIPS, KNEES, ENCOURAGED HIM, AFTER REPEAT DEMO, ON USING CALL LIGHT FOR ANY NEEDS
--- NOTE | 2018-05-03 08:23 | NUR ---
PT'S C/O PAIN IN IV, ARM SWOLLEN UNDERNEATH IV DRESSING, STOPPED IVF, ENCOURAGED HIM TO DRINK, HAS IV ABX THAT NEED TO RUN. WILL RESTART IV SOON
--- NOTE | 2018-05-03 11:38 | HC ---
[facility] [place] [address] CONSULTATION Name: FLORIN HICKMAN Room #: 424-P ADM IN M.R.#: [id number] Admission: 05/01/18 ������������������ Attend Phys: Josef Velarde MD Discharge: ������������������ Date of : 37 Report #: [id number] THIS REPORT FOR: //name// CC: Josef Guerra DATE OF SERVICE: 05/02/2018 CHIEF COMPLAINT: Left hip pain. HISTORY OF PRESENT ILLNESS: The patient is a pleasant 83-year-old male who was admitted through the Emergency Department at [facility] yesterday for complaints of left hip pain and left hip fracture status post fall. The patient reports that he was standing at his computer desk, when he lost his balance and fell, landing directly on his left hip. He denies hitting his head or loss of consciousness, but states that he had immediate pain and was unable to bear weight on the left hip. He currently rates his pain as a 10/10 on the left hip. ALLERGIES: No known drug allergies. PAST MEDICAL HISTORY: Significant for prior right total knee infection with antibiotic spacer placement and reimplantation of the right total knee in 2018. Left total knee arthroplasty. Right hip hemiarthroplasty, status post right hip fracture in 2014, bilateral inguinal hernia repair, left parotidectomy with chemo and radiation following parotidectomy. Multiple skin cancers removed from face, arthritis, diverticulitis, prior right cataract surgery, colonoscopy, prostate cancer and is being treated with injections only, hypertension, atrial fibrillation, restless leg syndrome, history of stomach ulcers in 2017. CURRENT MEDICATIONS: Please see medical record for current medications, but home medications include gabapentin, zolpidem, ropinirole, and aspirin. SOCIAL HISTORY: The patient's chart reports a past history of marijuana use, the patient denies tobacco or alcohol use. PHYSICAL EXAMINATION: VITAL SIGNS: Height 177 cm, weight 95 kilos. Temperature 37.3 degrees Celsius, blood pressure 134/70, and pulse 94. EXTREMITIES: Bilateral lower extremities are neurovascularly intact. Healed incisions present on the bilateral knees. Left hip is tender to palpation of the anterior and lateral aspects of the left hip. Pain with attempted passive range of motion of the left hip. IMAGING: Left hip and pelvis views of the left hip performed on 05/01/2018 show left femoral neck fracture. [address] [address] CONSULTATION Name: FLORIN HICKMAN DEBORAH Room #: 424-P [facility] IN .R.#: [id number] Admission: 05/01/18 ������������������ Attend Phys: Josef Velarde MD Discharge: ������������������ Date of : 39 Report #: [id number] IMPRESSION: Left femoral neck fracture. PLAN: Discussed with the patient his diagnosis and treatment options today. The patient elected to proceed with operative intervention of the left hip. We discussed that this would consist of a left hip hemiarthroplasty. The patient has been n.p.o. and we will plan on proceeding with surgery this morning. We discussed the postoperative need for physical therapy and rehabilitation. The patient verbalized understanding. We will plan on proceeding as scheduled. ��������������������������������������������� <ELECTRONICALLY SIGNED> ���������������������������������������� By: BLAYNE Burgess ��������������������������������������������� 05/03/18 1138 0730 0818 BLAYNE Burgess /nt
--- NOTE | 2018-05-03 14:32 | NUR ---
IV TEAM CALLED THREE X, SHE ALERTED THAT SHE'D BE BUSY THIS AFTERNOON. TWO RN ATTEMPTS, UNSUCCESSFUL, USING PO PAIN MED TO HANDLE PAIN AND WILL RE-START ABX WHEN ABLE
[2018-05-03 16:40] VITALS: BP 150/89
--- NOTE | 2018-05-03 16:59 | NUR ---
PT HAS BEEN ACCEPTED FOR ADMISSION TO [facility] OF TOMORROW 05/04/18.WHEELCHAIR VAN ARRANGED FOR 12:00. PT, SPOUSE, AND SON ARE ALL AWARE AND AGREEABLE. CHART COPY ORDERED. ORDERES TO BE FAXED ONCE COMPLETED. REPORT TO BE CALLED TO .
[2018-05-03 19:31] VITALS: BP 122/80
--- NOTE | 2018-05-04 00:21 | NUR ---
Alert and confused at times. bed rest; good appetite; vss, afebrile. c/o dean in left hip, pain medication given and worked; no n/v; patient is lying in bed, with eyes closed. will keep monitoring.
[2018-05-04 03:52] VITALS: BP 136/69
[2018-05-04] MEDS ORDERED: HYDROCODONE-AP1 EAC6 PO (09:56)
--- NOTE | 2018-05-04 11:29 | NUR ---
PT.DISCHARGING TODAY TO [facility] OP FAXED DC ORDERS/SUMMARY TO FACILITY AND FAMILY NOTIFIED PER SW OF DISCHARGE AND TIME OF TRANSPORT. TRANSPORTATION ARRANGED VIA VAN FOR 1200 TODAY. UNIT NOTIFIED AND CHART COPY PER US. RN TO CALL REPORT TO [phone].
--- NOTE | 2018-05-04 12:24 | NUR ---
Assumed pt care at 7am.Assessment completed.vss.Pt c/o left hip pain rated 10/10.Po pain med given with am med with partial relief.Dr Velarde here,dc order noted.dc order.litigation manager arranged for transport and chart copy done.Dc summary compile and saline lock and [place] cath dc prior to dc per wc at 1225 accompanied by transporter and pt .
--- NOTE | 2018-05-09 10:09 | O ---
[facility] [place] [address] OPERATIVE REPORT Name: FLORIN HICKMAN Room #: 424-P [facility] IN M.R.#: [id number] Admission: 05/01/18 ������������������ Attend Phys: Josef Velarde MD Discharge: 05/04/18 ������������������ Date of : 39 Report #: [id number] THIS REPORT FOR: //name// CC: Josef Smallky DATE OF SERVICE: 05/02/2018 PREOPERATIVE DIAGNOSIS: Left femoral neck fracture, displaced. POSTOPERATIVE DIAGNOSIS: Left femoral neck fracture, displaced. PROCEDURE PERFORMED: Left hip hemiarthroplasty. SURGEON: Héctor Medellin M.D. SFDC CONSULTANT: Deborah Bynum PA-C. ANESTHESIA: General. FLUIDS: Approximately 1000 mL crystalloid. ESTIMATED BLOOD LOSS: 75 mL. IMPLANTS UTILIZED: Ayala and Nephew unipolar 49-mm head with a tandem unipolar +0 sleeve and a size 15 high-offset Synergy cemented stem. DESCRIPTION OF PROCEDURE: After proper identification of the patient and operative site in the preoperative holding area, the operative site was signed by myself. Prophylactic antibiotics given. The patient elected to receive general anesthesia after reviewing the risks, benefits, alternatives and potential complications of his injury, treatment and anesthesia. The patient and his were present for this discussion and they wished to proceed with the above. The patient and his noted that he felt like his right lower extremity was shorter following his hip fracture. We discussed we will try and keep his leg lengths as equal as possible under the setting of good hip stability, but we did review the potential for limb length inequality. The patient was brought back to the operative suite after induction of satisfactory general anesthesia. He was carefully positioned in the right lateral decubitus position. The left hip was sterilely prepped and draped in the usual manner. Final skin draping was with Ioban. Posterior approach to the hip was planned. Skin was incised sharply. Full-thickness skin flaps were developed. Fascia was identified and incised longitudinally and gluteus ivy fibers were bluntly spread. Charnley retractor was carefully placed. Short external rotators were identified and tagged. A T-shaped capsulotomy was [address] [address] OPERATIVE REPORT Name: FLORIN HICKMAN Room #: 424-P [facility] IN M.R.#: [id number] Admission: 05/01/18 ������������������ Attend Phys: Josef Velarde MD Discharge: 05/04/18 ������������������ Date of : 37 Report #: [id number] performed. Femoral head was removed with a corkscrew. It measured 49 mm on the back table and this matched the intraoperative trial reductions. Femoral neck osteotomy was performed approximately 1 cm above the lesser trochanter. The remainder of the acetabulum demonstrated good chondral surfaces. No fractures were noted. The femoral canal was reamed by hand up to a size 15 stem. Appropriate broaches were then utilized. Standard high-offset necks were chosen as well as the sleeves and a 49-mm head. High-offset neck with a +0 sleeve provided the best overall recreation of femoral length as well as stability of the hip. There was excellent stability throughout a full range of motion. No pistoning of the hip along with longitudinal traction. Trial components were removed. Cement restrictor was placed distally. Canal brush was utilized as well as pulsatile lavage within the canal. This was then dried while cement was prepared on the back table. Two bags of cement were pressurized with cement gun into the canal and the above-noted implants were carefully impacted into position. Stem was placed in anteverted position and excess bone cement was carefully removed. Trial head and spacer were utilized and final implants were the +0 sleeve, 49 mm head. Capsule was repaired with 2-0 Vicryl as well as the piriformis. One gram of vancomycin powder was utilized after the hip had been thoroughly irrigated, half of this deep and half of it more superficial. Fascial layer was closed with 0 Vicryl and 2-0 Vicryl for the subcutaneous tissues. Final skin closure was performed and a sterile occlusive dressing was applied. The patient was placed in an abduction pillow. Qualified first cook utilized throughout the entire procedure to aid in patient limb positioning, visualization and retraction of the soft tissues, instrument passage, closure and dressing application. ��������������������������������������������� <ELECTRONICALLY SIGNED> ���������������������������������������� By: Héctor Medellin MD ��������������������������������������������� 05/09/18 1009 [id number] [id number] Héctor Medellin MD /nt
== END 2018-05-04 16:02 | DRG 469 ==
LOC: ER 09:12 → EROBS 12:05 → 4E 12:05
PROVIDERS: Emergency Medicine; ADMIT Hospitalist
PROC: 0SRS019 Replacement of Left Hip Joint, Femoral Surface with Metal Synthetic Substitute, Cemented, Open Approach (ICD-10-PCS; principal; 2018-05-02)
DX: S72.002A Fracture of unspecified part of neck of left femur, initial encounter for closed fracture (principal); E43 Unspecified severe protein-calorie malnutrition; N17.9 Acute kidney failure, unspecified; I10 Essential (primary) hypertension; M19.90 Unspecified osteoarthritis, unspecified site; I48.91 Unspecified atrial fibrillation; G25.81 Restless legs syndrome; Z96.653 Presence of artificial knee joint, bilateral; F12.90 Cannabis use, unspecified, uncomplicated; Z96.643 Presence of artificial hip joint, bilateral; W01.0XXA Fall on same level from slipping, tripping and stumbling without subsequent striking against object, initial encounter; D72.829 Elevated white blood cell count, unspecified; D64.9 Anemia, unspecified; Z98.41 Cataract extraction status, right eye; Z85.46 Personal history of malignant neoplasm of prostate; Y93.89 Activity, other specified; Y92.89 Other specified places as the place of occurrence of the external cause; Y99.8 Other external cause status
CPT/HCPCS: 10084; 50101; 50149; 50382; 50414; 50939; 51057; 51130; 51225; 51226; 51412; 53078; 53369; 56460; 56525; 56530; 57103; 62110; 62900; 70005

== ENCOUNTER 2018-11-23 19:08 | Inpatient (IN) | payer OTHER ==
[~2018-11-23] VITALS: Ht 182.9 cm; Wt 88.5 kg
[~2018-11-23 19:08] MED LIST changes: +CALCIUM CARBON600 MG PO; +IRON325 PO
[2018-11-23 19:11] VITALS: BP 138/69
[2018-11-23] MEDS ORDERED: STOOL SOFTENER100 MG PO (19:23)
[2018-11-23 19:31] LABS: HEMATOCRIT 36.3 % (42.0-52.0); HEMOGLOBIN 11.4 gm/dL (14.0-18.0); MCH 25.9 pg (26.0-34.0); MCHC 31.2 g/dL (28.0-37.0); RBC 4.38 mil/uL (4.50-6.00); RDW 14.2 % (10.5-14.5); WBC 8.4 thou/uL (4.0-11.0)
[2018-11-23 19:49] LABS: ANION GAP 9 mmol/L (7-16); BUN 13 mg/dL (7-18); CALCIUM 9.3 mg/dL (8.5-10.1); CHLORIDE 97 mmol/L (98-107); CO2 27 mmol/L (21-32); GLUCOSE 122 mg/dL (74-106); POTASSIUM 3.9 mmol/L (3.5-5.1); SODIUM 133 mmol/L (136-145)
[2018-11-23 19:58] LABS: TROPONIN-I <0.06 ng/mL (<0.06)
[2018-11-23 20:51] VITALS: BP 138/69
[2018-11-23 21:30] VITALS: BP 140/78
[2018-11-23 22:05] VITALS: BP 152/83
--- NOTE | 2018-11-24 03:04 | NUR ---
ASSESSMENT: PT REMAIN ALERT AND ORIENT TIMES THREE WITH SOME FORGETFULNESS. PT LIKES TO JOKE AROUND ALOT MASKING TRUE SYMPTOMS. PT HAS TO STAND TO USE THE URINAL, WITH SMALL AMTS OF LIGHT MARCELINA OUTPUT, FLOMAX ORDERED. GABAPENTIN AND EQUIP GIVEN WITH GOOD RESULTS. SR PER MONITOR. VSS, AFEBRILE. UP SBA/GB/WALKER TO USE URINAL. WILL CONTINUE TO MONITOR.
[2018-11-24 05:23] VITALS: BP 141/78
[2018-11-24 05:24] VITALS: BP 128/80
[2018-11-24 05:25] VITALS: BP 131/74
[2018-11-24 07:54] VITALS: BP 145/85
--- NOTE | 2018-11-24 11:56 | EKG ---
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 Station Operator: Luda CUELLAR : 1935 Requested By: Kamar Henry Order Number: [id number] MD: Fortunato Marley Measurements Intervals [place] Rate: 59 P: -12 WV: 272 QRS: -27 QRSD: 122 T: -11 QT: 450 QTc: 446 Interpretive Statements Sinus rhythm Atrial premature complexes Prolonged WV interval Nonspecific ST segment abnormality Compared to ECG 05/01/2018 10:13:49 No significant changes Electronically Signed On 11-24-2018 11:56:18 CDT by Fortunato Marley [email or web address] <ELECTRONICALLY SIGNED> By: Fortunato Marley MD, [facility] 11/24/18 1156 35 35 Fortunato Marley MD, [facility] /EPI
--- NOTE | 2018-11-24 14:23 | 2DMMODE ---
[facility] [address] [place] [address] 2 D/M-MODE ECHOCARDIOGRAM Name: MARYLOUFLORIN CABRERA Room #: 350-P ADM IN M.R.#: [id number] Admission: 11/23/18 Attend Phys: Nico Zambrano, Discharge: Date of : 37 Report #: [id number] THIS REPORT FOR: //name// APPROVED REPORT Study performed: 11/24/2018 11:04:18 EXAM: Comprehensive 2D, Doppler, and color-flow Echocardiogram Patient Location: Bedside Room #: 350 Status: on-call BSA: 2.11 HR: 75 bpm BP: 145/85 mmHg Rhythm: NSR Other Information Study Quality: Adequate Risk Factors: Cardiac Risk Factors: HTN Indications Atrial Fibrillation Syncope 2D Dimensions IVSd: 11.28 (7-11mm) LVOT Diam: 25.00 (18-24mm) LVDd: 54.28 mm PWd: 8.76 (7-11mm) Ascending Ao: 4.00 (22-36mm) LVDs: 36.28 (25-40mm) Aortic Root: 43.17 mm LV Single Plane 4CH: 48.84 % LV Single Plane 2CH: 54.05 % Biplane EF: 50.8 % Volumes Left Atrial Volume (Systole) Single Plane 4CH: 75.97 mL Single Plane 2CH: 43.90 mL LA ESV Index: 31.00 mL/m2 Aortic Valve AoV Peak Elmer.: 1.30 m/s AO Peak Gr.: 6.71 mmHg LVOT Max P.11 mmHg LVOT Max V: 0.88 m/s [facility] [address] [place] [address] 2 D/M-MODE ECHOCARDIOGRAM Name: FLORIN HICKMAN Room #: 350-P [facility] IN [facility]#: [id number] Admission: 11/23/18 Attend Phys: Nico Zambrano, Discharge: Date of : 37 Report #: [id number] Vmax: 3.38 cm2 AI Vmax: 2.90 m/s AI Buckingham: 0.97 m/s2 AI PHT: 865.24 ms Mitral Valve E/A Ratio: 0.5 MV Decel. Time: 305.12 ms MV E Max Elmer.: 0.48 m/s MV A Elmer.: 0.92 m/s MV PHT: 88.49 ms IVRT: 89.97 ms TDI E/Lateral E': 9.60 E/Medial E': 12.00 Medial E' Elmer.: 0.04 m/s Lateral E' Elmer.: 0.05 m/s Pulmonary Valve PV Peak Elmer.: 0.82 m/s PV Peak Gr.: 2.71 mmHg Pulmonary Vein P Vein S: 0.49 m/s P Vein A: 0.16 m/s P Vein D: 0.31 m/s P Vein A Dur.: 79.6 msec P Vein S/D Ratio: 1.58 Tricuspid Valve TR Peak Elmer.: 1.96 m/s RAP Estimate: 7.00 mmHg TR Peak Gr.: 15.41 mmHg PA Pressure: 22.00 mmHg Left Ventricle The left ventricle is normal size. There is normal LV segmental wall motion. There is normal left ventricular wall thickness. Left ventricular systolic function is normal. The left ventricular ejection fraction is within the normal range. LVEF is 50-55%. Mild diastolic dysfunction Right Ventricle The right ventricle is normal size. The right ventricular systolic function is normal. Atria The left atrium size is normal. The right atrium size is normal. [address] [address] 2 D/M-MODE ECHOCARDIOGRAM Name: FLORIN HICKMAN Room #: 350-P [facility] IN [facility]#: [id number] Admission: 11/23/18 Attend Phys: Nico Zambrano, Discharge: Date of : 37 Report #: [id number] Aortic Valve The aortic valve is trileaflet, mildly sclerotic. Mild aortic regurgitation. There is no aortic valvular stenosis. Mitral Valve The mitral valve is normal in structure. Mild mitral regurgitation. No evidence of mitral valve stenosis. Tricuspid Valve The tricuspid valve is normal in structure. Trace tricuspid regurgitation. Pulmonary artery pressure is 22 mmHg. Pulmonic Valve The pulmonary valve is normal in structure. There is no pulmonic valvular regurgitation. Great Vessels The aortic root is normal in size. The ascending aorta measures 4.0 cm. IVC is normal in size and collapses >50% with inspiration. Pericardium There is no pericardial effusion. <Conclusion> Left ventricular systolic function is normal. There is normal LV segmental wall motion. LVEF is 50-55%. Mild diastolic dysfunction The aortic valve is trileaflet, mildly sclerotic. Mild aortic regurgitation, no stenosis. The mitral valve is normal in structure. Mild mitral regurgitation. Trace tricuspid regurgitation. Pulmonary artery pressure of 22 mmHg. The ascending aorta is mildly dilated (4.0 cm). There is no pericardial effusion. <ELECTRONICALLY SIGNED> By: Fortunato Marley MD, [facility] 11/24/18 1422 142 142 Fortunato Marley MD, FACC /INF
[2018-11-24 14:52] VITALS: BP 145/85
[2018-11-24 14:58] VITALS: BP 145/85
--- NOTE | 2018-11-24 15:27 | NUR ---
PT DISCHARGED WITH SPOUSE TO FOLLOW UP WITH PCP IN 1 WEEK...HIGH FALL RISK...VERY IMPULSIVE AND NONCOMPLIANT WHEN CALLING FOR ASSIST
== END 2018-11-24 15:28 | disposition home or self-care (01) | DRG 74 ==
LOC: ER 19:08 → EROBS 20:26 → 3W 20:26
PROVIDERS: Emergency Medicine; ADMIT Internal Medicine
DX: G90.8 Other disorders of autonomic nervous system (principal); I48.1 Persistent atrial fibrillation; G25.81 Restless legs syndrome; G62.9 Polyneuropathy, unspecified; Z96.653 Presence of artificial knee joint, bilateral; M19.90 Unspecified osteoarthritis, unspecified site; I10 Essential (primary) hypertension; Z85.828 Personal history of other malignant neoplasm of skin; Z92.3 Personal history of irradiation; Z92.21 Personal history of antineoplastic chemotherapy; Z85.46 Personal history of malignant neoplasm of prostate; Z79.82 Long term (current) use of aspirin
CPT/HCPCS: 10879

== ENCOUNTER 2019-11-26 15:02 | Inpatient (IN) | payer OTHER ==
[~2019-11-26] VITALS: Ht 167.6 cm; Wt 86.2 kg
--- NOTE | ~2019-11-26 | HC ---
[facility] [place] [address] CONSULTATION Name: FLORIN HICKMAN Room #: 445-P ADM IN M.R.#: [id number] Admission: 11/26/19 Attend Phys: Fabian Manuel MD Discharge: Date of : 37 Report #: [id number] THIS REPORT FOR: cc: nAeesh Guerra MD, Michael D. MD Smithson, David G. MD ~ CC: Héctor Manuel DATE OF SERVICE: 11/26/2019 HISTORY OF PRESENT ILLNESS: The patient is an 84-year-old white male who has had right hip pain after a fall about a week ago. He was having some difficulty weightbearing. He was admitted and noted to have a nondisplaced right greater trochanteric fracture with bilateral hip arthroplasties. He is being handled nonsurgically and is to be toe touch weightbearing as per Orthopedics. We are seeing him in rehabilitation medicine consultation. PAST MEDICAL HISTORY: Includes bilateral total hip replacements, bilateral total knee replacements. He has had prior duodenal ulcer, hypertension, paroxysmal atrial fibrillation, and restless leg syndrome. He has had chemo and radiation following a parotidectomy, history of prostate CA, and right cataract surgery. MEDICATIONS: Please see the full medication listing. ALLERGIES: No known drug allergies. SOCIAL HISTORY: Per the patient's history he notes he lives with his , house 3-4 floors, but he does have a stair glide and thus does not have steps. His can assist if need be. He has used a walker for the last couple of years. REVIEW OF SYSTEMS: No current complaints of chest pain, shortness of breath or abdominal discomfort. PHYSICAL EXAMINATION: GENERAL: An 84-year-old white male, in no obvious distress. He is alert, oriented. VITAL SIGNS: Last recorded temperature 36.6, pulse 78, respirations 18, and blood pressure 132/62. HEENT: Appeared to be benign. Facies are symmetric, slender white male. EXTREMITIES: He has functional range of motion with some decreased shoulder range of motion, which appears to be premorbid. Right hip has some ecchymosis over the greater trochanter. He has got incisions, bilateral knees and hips. [address] [address] CONSULTATION Name: FLORIN HICKMAN DEBORAH Room #: 445-P [facility] IN M.R.#: [id number] Admission: 11/26/19 Attend Phys: Fabian Manuel MD Discharge: Date of : 37 Report #: [id number] No focal calf swelling. He can dorsiflex both ankles. He has not gotten up with therapy as of yet. ASSESSMENT: An 84-year-old white male with the following problem list: 1. Nondisplaced right greater trochanteric fracture, limited to toe touch weightbearing. He is being handled nonsurgically. 2. Past history of bilateral hip arthroplasty. 3. Hypertension. 4. Paroxysmal atrial fibrillation. 5. Restless legs syndrome. 6. History of peptic ulcer disease. 7. Prostate cancer with outpatient Urology. PLAN: Unfortunately, I do not see that the patient meets criteria for an acute 5 [facility] stay. We will need to see how he does in therapies and consider further options pending how he does. Thank you for asking us to assist in this patient's care. By: 1208 1533 Edwin Ledesma MD /nt
[2019-11-26 15:02] VITALS: BP 132/78
[2019-11-26] MEDS ORDERED: CLONAZEPAM 0.50.5 M1 PO (16:07)
[2019-11-26 16:26] LABS: HEMATOCRIT 32.3 % (42.0-52.0); HEMOGLOBIN 10.5 gm/dL (14.0-18.0); MCH 27.6 pg (26.0-34.0); MCHC 32.4 g/dL (28.0-37.0); MCV 85.1 fL (80.0-100.0); RBC 3.79 mil/uL (4.50-6.00); RDW 13.8 % (10.5-14.5); WBC 12.3 thou/uL (4.0-11.0)
[2019-11-26 16:38] LABS: CALCIUM 8.8 mg/dL (8.5-10.1); CREATININE 0.8 mg/dL (0.7-1.3); POTASSIUM 4.3 mmol/L (3.5-5.1)
[2019-11-26 17:40] VITALS: BP 136/71
[2019-11-26 18:06] VITALS: BP 109/74
[2019-11-26 18:53] VITALS: BP 155/75
--- NOTE | 2019-11-26 21:09 | NUR ---
PATIENT ADMITTED FROM ER WITH RIGHT GREAT TROCHANTER FRACTURE. PATIENT C/O PAIN WITH RIGHT HIP AREA, HYDROCODONE 1 TABLET GIVEN DURING ADMISSION. PATIENT ALSO GIVEN NIGHTTIME MEDS, PATIENT NEEDS APPLESAUCE WITH MEDS. PATIENT ALERT AND ORIENTED X 3 WITH PERIODS OF CONFUSION AND FORGETFULNESS. PATIENT HAS RIGHT UPPER ARM IV IN PLACE. PATIENT VOIDS PER URINAL, ADMISSION COMPLETED, REPORT GIVEN TO MICHELLE/RN. PATIENT VOMITED DURING ADMISSION, PATIENT STATED SOMETHING WAS BURNING IN IS THROAT, BUT AFTER HER VOMITED HER FELT BETTER, REPORT GIVEN TO MICHELLE/RN SMALL AMT. OF EMESIS NOTED.
--- NOTE | 2019-11-27 02:36 | NUR ---
ASSESSED AT START OF SHIFT. PT A&OX3 FORGETFULL. IV INTACT AND SL. PT C/O PAIN N/V. EMESIS NOTED, ZOFRAN AND PAIN MEDICATION GIVEN. URINAL AT BEDSIDE. PT NPO AT MIDNIGHT. FALL PREC IN PLACE. PT IS RESTLESS ANXIETY MED ALSO PROVIDED. BRUISED SKIN NOTED ON RT HIP. WILL CONT TO MONITOR.
[2019-11-27 04:08] VITALS: BP 132/72
--- NOTE | 2019-11-27 07:17 | NUR ---
PATIENT WITH A FEMUR FRACTURE, WILL AWAIT ORTHO CONSULT AND POST OP ORDERS IF SURGERY IS INDICATED.
[2019-11-27 08:30] VITALS: BP 132/62
[2019-11-27] MEDS ORDERED: LATANOPROST 0.2.5 ML OPHTHALMIC (10:03)
--- NOTE | 2019-11-27 14:52 | NUR ---
ASSESSMENT: CM REVIEWED CHART AND SPOKE WITH PATIENTS . CM ATTEMPTED TO MEET WITH PT BUT HE WAS WORKING WITH THERAPIES. PT LIVES IN A HOME WITH HIS . PT HAS NO STEPS TO ENTER AND HAS A STAiRLIDE INSIDE. REPORTS PATIENT USES A WALKER FOR AMBULATION BUT ALSO HAS A CANE. PT HAS BEEN TO [facility], [facility], AND [facility] IN THE PAST. SHE REPORTS HE WILL NOT AGREE TO GO ANYWHERE OTHER THEN [facility] NOW THEIR CARE WAS SO GOOD. PT WAS ADMITTED FOR A R HIP FRACTURE AND THEY HAVE DECIDED TO NOT DO SURGERY. 5N WAS CONSULTED BUT UNSURE PT WILL BE ABLE TO PARTICIPATE OR BE A CANIDATE. WANTED A REFERRL SENT TO [facility]. CM Faxed referral and notified liason at [facility]. CM WILL CONTINUE TO FOLLOW TO ASSIST NEEDED.
--- NOTE | 2019-11-27 18:19 | NUR ---
Assumed care of pt at 0700. Pt alert but forgetful. TTWB on RLE. Denies pain unless he is moving. PT/OT saw patient. Swallow study performed. Non-surgical. 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 Pt impulsive at times. Eye drops added to pt's list. Fall precautions in place. Will continue to monitor.
[2019-11-27 19:30] VITALS: BP 107/63
--- NOTE | 2019-11-28 00:39 | NUR ---
ASSUMED PT CARE AT AROUND 2330 HRS. PT RESTLESS AND WANTING TO GET UP TO THE CHAIR. PT FINALLY AGREED TO TAKE HIS HS MEDS. PT IS ALERT TO SELF, PLACE AND SITUATION. HE GETS FORGETFUL. TOLD ME ITS SEPTEMBER. HE USES HIS URINAL. VERY DIFFICULT TO REPOSITION. REDNESS AND SCALING NOTED TO REJI LE.NO EDEMA. PT IS ON ROOM AIR, NO COUGH OR SOA NOTED.BRUISING TO R HI. HE SEEMS TO BE CALMING DOWN AT THIS TIME.WILL CONTINUE WITH POC. FALL PREC IN PLACE.
--- NOTE | 2019-11-28 01:42 | NUR ---
PT WAS OBSERVED SITTING UP IN THE RECLINER IN HIS ROOM ASLEEP AT THE START OF SHIFT.PT WAS IMPULSIVE AND WAS TRYING TO GET OUT OF THE CHAIR WITHOUT ASSISTANCE.PT WAS SAFELY TRANSFERRED TO THE BED WITH TWO ASSIST.PT REF TO TAKE HIS HS MEDS.PT INSISTED ON GETTING UP AND WALKING BACK TO THE RECLINER.BLE EDEMA NOTED.PT'S CARE TRANSFERRED TO ANOTHER NURSE AT 2330.
[2019-11-28 03:45] VITALS: BP 143/68
[2019-11-28 08:33] VITALS: BP 155/83
--- NOTE | 2019-11-28 12:32 | NUR ---
PT FELL ONE WEEK AGO. PT HAS A FRACTURE OF THE GREATER TROCHANTER, WITH NO SURGERY NEEDED. PT IS ALERT AND ORIENT TO SELF AND SITUATION, AND AMBULATES WITH MAX ASSIST OF 2 PERSON. PT WILL VISIT WITH PATIENT TODAY. PT IS [place], FORGETFULNESS, TOE TO TOUCH WT BEARING, USES THE URINAL APPROPRIATELY. PT TAKES MEDS WHOLE WITH APPLESAUCE. SPEECH VISIT WITH PT TODAY AND SUGGEST SNF HIGH RISK OF ASPIRATION, SO PT WILL STAY ON A NECTOR THICK DIET WITH NO STRAWS. FALL PRECAUTIONS IN PLACE, WILL CONTINUE TO MONITOR.
[2019-11-28] MEDS ORDERED: ACETAMINOPHEN325 M1 PO (13:53)
[2019-11-28] MEDS ORDERED: COLACE 100 MG100 MG PO (13:53)
[2019-11-28] MEDS ORDERED: PEPCID20 MG PO (13:53)
[2019-11-28] MEDS ORDERED: HYDROCODON-ACE1 EAC7 PO (13:53)
[2019-11-28] MEDS ORDERED: REQUIP 1 MG TABL1 M1 PO (13:53)
--- NOTE | 2019-11-28 14:09 | NUR ---
ON-GOING ASSESSMENT: CM REVIEWED CHART AND SPOKE WITH PATIENT AND ATTENDING. PHYSICAL THERAPY SAW PATIENT AND STILL RECOMMENDING POST ACUTE CARE. PT IS AGREEABLE TO GO TO SNF AND REFERRAL SENT TO [facility]ER[facility] PER WIFES REQUEST. [facility] CAN ACCEPT PATIENT FOR ADMISSION TODAY PER [facility] AND MEDICARE 3 DAY IS WAIVED AT THIS TIME. CM NOTIFIED ATTENDING. TRANSPORTATION IS ARRANGED FOR 1530. CM NOTIFIED PT AND BEDSIDE RN WHO ALSO HAS THE NUMBER FOR REPORT. NOTIFIED. DISCHARGE ORDERS WERE FAXED AND CONFIRMED THEY RECEIVED THEM. CHART COPY WAS ORDERED AND BANK CASHIER WAS NOTIFIED. CASE CLOSED.
== END 2019-11-28 16:35 | DRG 536 ==
LOC: ER 15:02 → 4S 17:24 → EROBS 17:24 → 4S 18:34
PROVIDERS: Physician Assistant; ADMIT Internal Medicine; ATTEND Internal Medicine
DX: S72.114A Nondisplaced fracture of greater trochanter of right femur, initial encounter for closed fracture (principal); I48.0 Paroxysmal atrial fibrillation; K27.9 Peptic ulcer, site unspecified, unspecified as acute or chronic, without hemorrhage or perforation; Z20.828 Contact with and (suspected) exposure to other viral communicable diseases; M19.90 Unspecified osteoarthritis, unspecified site; I10 Essential (primary) hypertension; Z96.643 Presence of artificial hip joint, bilateral; R13.10 Dysphagia, unspecified; F41.9 Anxiety disorder, unspecified; K59.00 Constipation, unspecified; G25.81 Restless legs syndrome; Z96.653 Presence of artificial knee joint, bilateral; Z92.21 Personal history of antineoplastic chemotherapy; Z92.3 Personal history of irradiation; Z79.01 Long term (current) use of anticoagulants; Z98.41 Cataract extraction status, right eye; Z85.46 Personal history of malignant neoplasm of prostate; Z47.89 Encounter for other orthopedic aftercare; Z79.899 Other long term (current) drug therapy; W18.39XA Other fall on same level, initial encounter; Y93.89 Activity, other specified; Y92.098 Other place in other non-institutional residence as the place of occurrence of the external cause; Y99.8 Other external cause status
CPT/HCPCS: 10195

== ENCOUNTER 2020-03-01 13:09 | Inpatient (IN) | payer OTHER ==
[~2020-03-01] VITALS: Ht 185.4 cm; Wt 79.9 kg
[~2020-03-01 13:09] MED LIST changes: +CLONAZEPAM 0.50.5 M1 PO; +LATANOPROST 0.2.5 ML OPHTHALMIC; +PEPCID20 MG PO
[2020-03-01 13:13] VITALS: BP 144/82
[2020-03-01 14:08] LABS: ABSOLUTE NEUTROPHILS 11.8 thou/uL (1.4-8.2); BASOPHILS 0.5 % (0.0-2.0); EOSINOPHILS 0.5 % (0.0-3.0); HEMATOCRIT 42.3 % (42.0-52.0); HEMOGLOBIN 13.1 gm/dL (14.0-18.0); LYMPHOCYTES 8.1 % (24.0-44.0); MCH 26.4 pg (26.0-34.0); MCV 85.1 fL (80.0-100.0); MONOCYTES 5.9 % (1.0-8.0); PLATELET COUNT 218 thou/uL (150-400); RBC 4.97 mil/uL (4.50-6.00); RDW 13.8 % (10.5-14.5); WBC 13.9 thou/uL (4.0-11.0)
[2020-03-01] MEDS ORDERED: ARTIFICIAL TEAR15 M4 EA. EYE (14:24)
[2020-03-01] MEDS ORDERED: DEPAKOTE SPRIN125 MG PO (14:25)
[2020-03-01 14:33] LABS: ALBUMIN 3.5 g/dL (3.4-5.0); ANION GAP 11 mmol/L (7-16); BUN 39 mg/dL (7-18); CHLORIDE 114 mmol/L (98-107); CO2 25 mmol/L (21-32); CREATININE 1.6 mg/dL (0.7-1.3); GLUCOSE 96 mg/dL (74-106); POTASSIUM 3.9 mmol/L (3.5-5.1); SGOT 30 U/L (15-37); SGPT 18 U/L (16-63); SODIUM 150 mmol/L (136-145); TOTAL BILIRUBIN 2.6 mg/dL (0.2-1.0); TOTAL PROTEIN 7.5 g/dL (6.4-8.2)
[2020-03-01 14:37] LABS: SALICYLATE < 2.8 mg/dL (2.8-20.0)
[2020-03-01 14:39] LABS: URINE BILIRUBIN NEGATIVE (Negative); URINE BLOOD NEGATIVE (Negative); URINE CLARITY CLEAR; URINE COLOR YELLOW; URINE GLUCOSE-RANDOM* NEGATIVE (Negative); URINE KETONES NEGATIVE (Negative); URINE LEUKOCYTES-REFLEX NEGATIVE (Negative); URINE PROTEIN (DIPSTICK) NEGATIVE (Negative)
[2020-03-01 14:40] LABS: URINE NITRITE-REFLEX POSITIVE (Negative)
[2020-03-01 14:47] LABS: AMP/METHAMP Negative (Negative); BARBITURATES Negative (Negative); BENZODIAZEPINES Negative (Negative); COCAINE Negative (Negative); METHADONE Negative (Negative); OPIATES Negative (Negative); PCP Negative (Negative)
[2020-03-01 14:47] LABS: CALCIUM 12.3 mg/dL (8.5-10.1)
[2020-03-01 15:15] LABS: BACTERIA-REFLEX 1-9 Few /HPF (None Seen); CASTS None Seen /LPF (None Seen); CRYSTALS None Seen /LPF (None Seen); SQUAMOUS None Seen /LPF (0-3); URINE RBC None Seen /HPF (0-2); URINE WBC-REFLEX None Seen /HPF (0-5)
[2020-03-01] MEDS ORDERED: ASPERCREME1 EACH TOP (16:36)
[2020-03-01] MEDS ORDERED: NAMENDA 5 MG TAB5 M1 PO (16:37)
--- NOTE | 2020-03-01 17:11 | NUR ---
PT REMOVED IV FROM LEFT HAND
[2020-03-01 19:31] LABS: CALCIUM 11.3 mg/dL (8.5-10.1); CREATININE 1.5 mg/dL (0.7-1.3); PHOSPHORUS 2.7 mg/dL (2.6-4.7)
[2020-03-01 19:32] LABS: CREATININE 1.5 mg/dL (0.7-1.3); MAGNESIUM 1.9 mg/dL (1.8-2.4); PHOSPHORUS 2.7 mg/dL (2.5-4.9); POTASSIUM 3.6 mmol/L (3.5-5.1)
--- NOTE | 2020-03-01 22:10 | NUR ---
SPOKE WITH PHARMACY AFTER PUTTING A HOLD ACKNOWLEDGE ON THE PT'S 2100 MEDS. THIS NURSE WAS TOLD THAT THE PHARMACIST HAD TUBED THE MEDICATIONS TO ER. THIS NURSE COULD NOT FIND THE MEDICATIONS AND TOLD THE PHARMACIST THAT SHE WOULD LOOK FOR THE MEDICATIONS AGAIN.
[2020-03-02 03:14] VITALS: BP 152/77
--- NOTE | 2020-03-02 03:22 | NUR ---
CALLED TO GIVE REPORT TO NURSE TAKING THIS PT. I WAS TOLD THAT THE NURSE WOULD HAVE TO GIVE ME A CALL BACK
[2020-03-02 04:20] VITALS: BP 148/68
--- NOTE | 2020-03-02 04:58 | NUR ---
0415 ARRIVED PER CART FROM ER. ORIENTED TO PERSON ONLY. YELLS OUT BUT WILL CALM DOWN WITH REASSURANCE. ADMISSION PROCESS STARTED. BED ALARM ON.
--- NOTE | 2020-03-02 05:27 | NUR ---
PT NEW ADMIT. INITIAL VITAL STABLE. DENIES CHEST PAIN, NAUSEA, OR VOMITING. ADMISSION COMPLETED. PT CONFUSED BUT EASY TO REDIRECT. WILL CONTINUE TO MONITOR
--- NOTE | 2020-03-02 07:17 | EKG ---
[place] [address] [place] [address] ELECTROCARDIOGRAM REPORT Name: FLORIN HICKMAN Room #: 213-P ADM IN M.R.#: [id number] Admission: 03/01/20 Attend Phys: Isabelle Mast MD Discharge: Date of : 37 Report #: [id number] [facility] ED Test Date: 2020-03-01 Test Time: 14:03:04 Pat Name: FLORIN HICKMAN Department: Room: 213 Gender: M Kiss Machine Operator: leighton : 1935 Requested By: Etelvina Hernández Order Number: [id number] MD: Lexa Beckman Measurements Intervals [place] Rate: 84 P: -10 ME: 193 QRS: -43 QRSD: 106 T: -6 QT: 365 QTc: 432 Interpretive Statements Sinus rhythm Ventricular premature complex Left axis deviation Abnormal R-wave progression, early transition Borderline repol abnrm, inferolateral leads Compared to ECG 11/23/2018 20:36:40 Ventricular premature complex(es) now present Left-axis deviation now present Atrial premature complex(es) no longer present First degree AV block no longer present ST (T wave) deviation no longer present Electronically Signed On 03-02-2020 7:17:19 CLINICAL DATA PROGRAMMER by Lexa Beckman [email or web address] <ELECTRONICALLY SIGNED> By: Lexa Beckman MD, FACC 03/02/20 0717 02 02 Lexa Beckman MD, [facility] /EPI
[2020-03-02 07:18] LABS: MAGNESIUM 1.8 mg/dL (1.8-2.4); PHOSPHORUS 2.3 mg/dL (2.6-4.7)
[2020-03-02 07:30] LABS: ALBUMIN 3.1 g/dL (3.4-5.0); DIRECT BILIRUBIN 0.4 mg/dL (<0.1-0.2); TOTAL BILIRUBIN 2.1 mg/dL (0.2-1.0)
[2020-03-02 07:46] LABS: TOTAL PROTEIN 6.6 g/dL (6.4-8.2)
[2020-03-02 08:00] VITALS: BP 147/88
[2020-03-02 09:59] LABS: CALCIUM 11.2 mg/dL (8.5-10.1); CREATININE 1.3 mg/dL (0.7-1.3); POTASSIUM 3.3 mmol/L (3.5-5.1)
--- NOTE | 2020-03-02 11:09 | NUR ---
Received awake on bed. On nothing per orem- pt informed and aware; mouth swabs done- for ST evaluation due to dysphagia- a/w recommendations. Pt very confused, trying to get out of bed and may be combative to staff at times- Dr Garnett informed- a/w psych consult. On telemetry; no complains and signs of chest pain, crushing sensation and heaviness. On room air. Vital signs stable. With on and off incontinence- able to use urinal at times; checked frequently and changed as needed. With D5W at 100cc/hr, infusing well at R AC- wrapped in coban. No nausea, no vomiting and no abdominal pain noted. Pt evaluated by ST this AM then pt became combative during assessment, informed Speech therapist to continue evaluation some other time for safety issues- Dr Garnett informed re: this. Pt to start on pureed diet + honey thick liquids- assisted and encouraged in eating and drinking. Pt's called this AM, update given. Pt able to turn self in bed. Ultrasound staff called, pt scheduled today, to put on NPO until 3pm then will see pt- informed staff that pt can be impulsive and combative at times. To continue monitoring patient. Pt tried to get out of bed several times, falls bundle in place; bed alarm on, re-oriented from time to time.
[2020-03-02 12:06] LABS: PSA 31.9 ng/mL (0.0-4.0)
[2020-03-02 12:49] VITALS: BP 143/81
[2020-03-02 15:30] VITALS: BP 150/76
[2020-03-03 04:24] VITALS: BP 136/1
[2020-03-03 05:42] LABS: HEMATOCRIT 40.9 % (42.0-52.0); HEMOGLOBIN 12.5 gm/dL (14.0-18.0); MCH 26.2 pg (26.0-34.0); MCHC 30.4 g/dL (28.0-37.0); MCV 86.1 fL (80.0-100.0); RBC 4.75 mil/uL (4.50-6.00); RDW 13.5 % (10.5-14.5); WBC 11.6 thou/uL (4.0-11.0)
[2020-03-03 05:52] LABS: CALCIUM 10.9 mg/dL (8.5-10.1); CREATININE 1.1 mg/dL (0.7-1.3); MAGNESIUM 1.6 mg/dL (1.8-2.4); PHOSPHORUS 2.6 mg/dL (2.6-4.7); POTASSIUM 3.2 mmol/L (3.5-5.1)
--- NOTE | 2020-03-03 08:07 | NUR ---
PT COMBATIVE AT THE BEGINNING OF THE SHIFT. HALDOL IM GIVEN X 1. PT INCONTINENT, UNABLE TO OBTAIN 24 HR URINE CALCIUM. PT ALSO C/O LOWER BACK PAIN. NORCO X 1 GIVEN. REMAINS SR WITH PVCs ON THE MONITOR. FAMILY UPDATED. WILL CONTINUE TO MONITOR
[2020-03-03 08:10] VITALS: BP 106/61
[2020-03-03 11:15] VITALS: BP 130/71
[2020-03-03 14:08] LABS: CEA 5.9 ng/mL (0.0-4.7)
--- NOTE | 2020-03-03 16:45 | NUR ---
Patient admits from [facility] for AMS. Patient recent dc from [facility] Nov 27 from fall. He admitted to [facility] then on Feb 19 transferred to [facility]. reports he has dementia that has exacerbated. She reports it came suddenly at [facility]. He would come to the door and say hes leaving. He did not have insight that he could not return home safely. reports she has done a bed hold at [facility]. She questions if need Memory care unit. Discussed return to [facility] and she can have time to review facilities. Likely cannot tour with COVID. Sp with [facility] RN reports behavior sporatic he will throw himself on floor and cuss. He has urinated in water pitcher/ Patient utilizes a wc. reports he cannot transfer himself from bed to chair. thinks if he sees wc it can trigger him to try to get to wc. She believes if he can believe can get to wc can leave facility. Casemgt following
--- NOTE | 2020-03-03 20:19 | NUR ---
ASSUMED PT CARE AT APROXIMATELY 0700. PT DROWSY AND ORIENTED X1 THROUGHOUT SHIFT. ASSESSMENT CHARTED. FALL PRECAUTIONS IN PLACE. PT DENIES HAVING CHEST PAIN. PT DENIES HAVING SOB. PT DENIES ACUTE PAIN. EDUCATED PT'S OF POC. PT'S STATED UNDERSTANDING AND DENIED HAVING FURTHER QUESTIONS. PT COMFORTABLE IN BED. INFORMED DR. JOSEPH AND DR. VERDUZCO OF PT'S DROWSINESS. BOTH STATED UNDERSTANDING AND DENIED HAVING FURTHER ORDERS. PT NOT ALERT TO EAT OR TAKE PO MEDICATIONS. INFORMED 'S STATED UNDERSTANDING AND DENIED HAVING FURTHER ORDERS. VITAL SIGNS STABLE. PT DENIES HAVING FURTHER CONCERNS.
[2020-03-03 20:42] VITALS: BP 10/59
[2020-03-04] VITALS (7 sets, daily range): BP systolic 11–151; BP diastolic 60–89
--- NOTE | 2020-03-04 03:53 | NUR ---
CARE ASSUMED 1900. PT DROWSY, LETHERGIC . UNABLE TO TAKE ANYTHING PO DUE TO ASPIRATION RISK. PT AWAKENS TO BOTH VERBAL AND TACTILE STIMULI. VITALS STABLE. ELECTROLYTES REPLACED. FAMILY UPDATED AT SHIFT CHANGE ON PATIENTS CONDITION. WILL CONTINUE TO MONITOR AND FOLLOW POC.
[2020-03-04 05:15] LABS: CALCIUM 10.4 mg/dL (8.5-10.1); CREATININE 1.1 mg/dL (0.7-1.3); MAGNESIUM 2.2 mg/dL (1.8-2.4); POTASSIUM 4.1 mmol/L (3.5-5.1)
--- NOTE | 2020-03-04 20:10 | NUR ---
ASSUMED CARE OF PT AT SHIFT CHANGE. ASSESSMENTS CHARTED. MEDS GIVEN PER MAY. PT A&OX2, C/O BACK PAIN TREATED WITH PO MEDS WITH PARTIAL RELIEF. PT WAS APPROPRIATE DURING SHIFT WITH NO ATTEMPTS TO EXIT BED AND WITH LITTLE CONFUSION. NO PRN MEDS GIVEN. REPORTED OFF TO NOC NURSE.
[2020-03-05 04:45] VITALS: BP 152/79
--- NOTE | 2020-03-05 08:12 | NUR ---
PT AOX1, TO SELF. PT RESTLESS AND INTERMITTENTLY IRRITABLE. PT DIFFICULT TO REDIRECT AND HARD OF HEARING. PT REPORTS GENERALIZED PAIN. PT RECEIVING PRN PO NORCO. PT TOLERATING PO INTAKE OF HONEY THICKENED LIQUIDS AND PUREED DIET, PT REFUSING DIET ORDER DUE TO TASTE PREFERENCE. PT INCONTINENT OF BOWEL AND BLADDER, INTERMITTENTLY USING URINAL APPROPRIATELY. PT RESTING IN BED THROUGHOUT SHIFT, FREQUENT REPOSITIONING ENCOURAGED. PT NOTED TO SHIFT INDEPENDENTLY WHILE IN BED, OBSERVED ATTEMPTING TO GET OUT OF BED MULTIPLE TIMES. PT ENCOURAGED TO NOTIFY STAFF FOR ALL NEEDS, CALL LIGHT WITHIN REACH, BED ALARM ON, BED IN LOWEST POSITION, ROOM REMAINS NEAR NURSES STATION, FREQUENT MONITORING WILL CONTINUE.
[2020-03-05 08:39] VITALS: BP 138/65
[2020-03-05 11:10] LABS: HEMATOCRIT 40.1 % (42.0-52.0); HEMOGLOBIN 12.3 gm/dL (14.0-18.0); MCH 26.1 pg (26.0-34.0); MCHC 30.8 g/dL (28.0-37.0); MCV 84.9 fL (80.0-100.0); RBC 4.72 mil/uL (4.50-6.00); RDW 13.7 % (10.5-14.5); WBC 15.5 thou/uL (4.0-11.0)
[2020-03-05 11:26] LABS: ALBUMIN 3.2 g/dL (3.4-5.0); CALCIUM 10.9 mg/dL (8.5-10.1); CREATININE 1.1 mg/dL (0.7-1.3); MAGNESIUM 1.9 mg/dL (1.8-2.4); POTASSIUM 4.1 mmol/L (3.5-5.1); TOTAL BILIRUBIN 1.6 mg/dL (0.2-1.0)
--- NOTE | 2020-03-05 16:42 | NUR ---
FAXED CLINICAL UPDATE TO [facility] RECEIVED CONFIRMATION AND LEFT MSG WITH ADM. DP TO FOLLOW.
--- NOTE | 2020-03-05 16:47 | NUR ---
Patient admits from [facility] unit. has bed hold at facility. Sp with Miesha ERICKSON at [facility] they have availability at this time for patient to return skilled. If patient dc over weekend. Call [facility] [phone] alert of dicharge. fax order to [phone]. Obtain chart copy. Call [facility] [phone] to arrange transport. Call and alert
[2020-03-05 16:55] VITALS: BP 155/84
--- NOTE | 2020-03-05 18:29 | NUR ---
ASSUMED CARE OF PT AT SHIFT CHANGE. ASSESSMENTS CHARTED. MEDS GIVEN PER MAY. PT ALERT TO SELF, VERY AGITATED THIS MORNING, CLIMBING OUT OF BED, YELLING FOR HELP. AT BEDSIDE FOR 2 HOURS IN THE AM HELPING KEEP HIM CALM. HALDOL AND ATIVAN BECAME MORE EFFECTIVE IN THE AFTERNOON. PLAN FOR POSSIBLE DC OVER THE WEEKEND. WILL CONTINUE TO MONITOR AND FOLLOW POC.
[2020-03-05 19:30] VITALS: BP 125/91
[2020-03-06 04:30] VITALS: BP 125/71
[2020-03-06 09:00] VITALS: BP 108/63
--- NOTE | 2020-03-06 09:12 | NUR ---
PT STARTED ON SCHEDULED HALDOL STARTING THIS EVENING, PT RESTLESS AND INCONT. SEVERAL TIMES EXTERNAL CONDOM PLACED, DENIES PAIN, VSS, REPORT GIVEN TO NEXT SHIFT TO CON'T PPOC.
[2020-03-06 12:00] VITALS: BP 127/74
[2020-03-06 15:30] VITALS: BP 101/56
--- NOTE | 2020-03-06 18:39 | NUR ---
CONFUSED. YELLS OUT NAMES. UPDATED HIS TELEPHONICALLY. SR/ST PER TELE. FALL PRECAUTIONS IN PLACE. CLOSE TO NURSES' STATION.
[2020-03-06 19:40] VITALS: BP 120/69
[2020-03-07 04:30] VITALS: BP 140/65
--- NOTE | 2020-03-07 05:45 | NUR ---
pt resting quietly thru the noc, receiving haldol scheduled bid, not tolerating diet refuses it all except a few sips and bites, does reposition self in bed refuses any assistance, vss, will con't to monitor per ppoc.
[2020-03-07 07:00] VITALS: BP 135/64
[2020-03-07 10:24] LABS: HEMATOCRIT 37.1 % (42.0-52.0); HEMOGLOBIN 11.5 gm/dL (14.0-18.0); MCH 26.4 pg (26.0-34.0); MCV 85.2 fL (80.0-100.0); PLATELET COUNT 187 thou/uL (150-400); RBC 4.35 mil/uL (4.50-6.00); RDW 13.4 % (10.5-14.5); WBC 10.9 thou/uL (4.0-11.0)
[2020-03-07 10:34] LABS: ALBUMIN 2.7 g/dL (3.4-5.0); CALCIUM 9.6 mg/dL (8.5-10.1); CREATININE 0.9 mg/dL (0.7-1.3); POTASSIUM 4.1 mmol/L (3.5-5.1); TOTAL PROTEIN 5.6 g/dL (6.4-8.2)
[2020-03-07 11:00] VITALS: BP 124/72
[2020-03-07 11:40] LABS: ABSOLUTE NEUTROPHILS 8.7 thou/uL (1.4-8.2)
[2020-03-07 11:41] LABS: ANISOCYTOSIS SLIGHT
--- NOTE | 2020-03-07 13:53 | NUR ---
DC ORDERS PUT IN BY PHYSICIAN TODAY, RN CALLED FACILITY SPOKE WITH TRINA WHO IS TRANSITIONING THE NEW DON OF FACILITY [facility] THE FORMER DON IS NOT EMPLOYED. [facility] STATED THAT THEIR FACILITY CANNOT TAKE THE PATIENT TODAY, AND STATES WILL FOLLOW UP WITH CASE MANAGEMENT EITHER TOMORROW OR MONDAY.
[2020-03-07 16:00] VITALS: BP 159/92
--- NOTE | 2020-03-07 18:27 | NUR ---
ASSUMED CARE PT SHFIT CHANGE.ASSESSMENTS CHARTED.MEDS GIVEN PER MAR. PT ALERT, CONFUSED, ORIENTED TO SELF. REORIENTED FREQUENTLY. DENIES PAIN. DENIES SOB. VSS. SPOUSE UPDATED ON POC. UOP ADEQUATE. PT DOES NOT LIKE THICKENED FOODS AND DRINKS, TOLERATES LESS THAN FAIR. O2 SATS WNL RA. LABS STABLE. PLAN FOR PT TO DC TO [facility] WHEN BED AVAILABLE.
[2020-03-07 19:00] VITALS: BP 155/76
[2020-03-08 04:00] VITALS: BP 155/94
[2020-03-08 07:49] VITALS: BP 138/77
--- NOTE | 2020-03-08 07:59 | NUR ---
ASSUMED PATIENT CARE AT 1845. VITAL SIGNS STABLE WITH NURSE NOT PERCEIVING ANY PAIN OR NAUSEA ON BEHALF OF PATIENT. BREATHING STABLE ON ROOM AIR EVIDENCED BY ASSESSMENTS AND SPOT OXYGENATION CHECKS. PATIENT IS ALERT TO SELF AND HIGHLY IMPULSIVE. SWALLOW PRECAUTIONS FOLLOWED. GOOD OUTPUT THROUGH CONDOM CATHETER. PATIENT IS EXPECTED TO DISCHARGE BACK TO FACILITY EITHER TODAY OR TOMORROW. CONTINUE PLAN OF CARE.
[2020-03-08 11:25] VITALS: BP 145/91
--- NOTE | 2020-03-08 15:56 | NUR ---
NOTIFIED TO PLACE A PIV FOR THIS PATIENT. THE PRIOR PERIPHERAL IV IN THE RIGHT AC WAS NOTED TO BE RED, HOT AND TENDER TO TOUCH WITH A LARGE AMOUNT OF DISCHARGE AT THE SITE. THE PHLEBITIS EXTENDED UP THE ARM APPROXIMATELY 3M WITH A PALPAPLE CORD NOTED. THE 2N RN NOTIFIED AND SHE SPOKE WITH DR. VERDUZCO. CULTURES WERE ORDERED.
--- NOTE | 2020-03-08 18:20 | NUR ---
ASSUMMED PT CARE AT APPROXIMATELY 0700. PT A&O X1. FREQUENT REORIENTATION PROVIDED. ASSESSMENT CHARTED. FALL PRECAUTIONS IN PLACE. PT DENIES HAVING CHEST PAIN. PT DENIES HAVING SOB. PT DENIES HAVING ACUTE PAIN. VITAL SIGNS STABLE. EDUCATED SPOUSE ABOUT POC. SPOUSE STATED UNDERSTANDING. INFORMED DR. VERDUZCO THAT PT'S SPOUSE WANTED TO SPEAK TO HIM. DR. VERDUZCO STATED UNDERSTANDING. INFORMED DR. VERDUZCO OF PT'S INFLITRATED IV. DR. VERDUZCO STATED UNDERSTANDING AND NEW ORDERS IMPLEMENTED. PT COMFORTABLE. PT DENIES HAVING FURTHER CONCERNS.
[2020-03-08 19:39] VITALS: BP 138/86
[2020-03-09 04:45] VITALS: BP 159/85
--- NOTE | 2020-03-09 07:11 | NUR ---
PATIENTS CARES WERE ASSUMED AT SHIFT CHANGE. PATIENT WAS ASSESSED AND MEDS WERE PASSED. PATIENT HAS BEEN DOWN GRADED TO A MED SURG LEVEL. THIS PATIENT DOES HAVE SUN DOWNERS AND GETS COMBATIVE. HE DOES HAVE 2.5 HALDOL IM ON BOARD FOR THIS ISSUE. WILL CONTINUE TO FOLLOW.
[2020-03-09 08:00] VITALS: BP 141/82
[2020-03-09 12:10] VITALS: BP 112/66
--- NOTE | 2020-03-09 14:41 | NUR ---
PT CARE ASSUMED AT 0700. A&Ox4. BEDBATH GIVEN. IV PATENT WITH NO REDNESS OR EDEMA, FLUIDS INFUSING. HONEY THICK FLUIDS. PT TOOK ALL MEDS CRUSHED WITH PUDDING. PT DISCHARGED WITH STRETCHER WITH NO FURTHER QUESTIONS. PT HAD SOME BEHAVIORS THIS MORNING THESE HAVE BEEN SUBSIDED SINCE HAS COME TO THE BEDISIDE.
[2020-03-09] MEDS ORDERED: PEPCID20 MG PO (15:02)
[2020-03-09] MEDS ORDERED: VITAMIN D21250 MC1 PO (15:02)
[2020-03-09] MEDS ORDERED: DEPAKOTE SPRIN125 MG PO (15:02)
[2020-03-09] MEDS ORDERED: HALOPERIDOL 5 MG5 MG PO ×2 (15:02)
[2020-03-09] MEDS ORDERED: NAMENDA 5 MG TAB5 M1 PO (15:02)
--- NOTE | 2020-03-09 15:05 | NUR ---
Patient to discharge today to return to [facility]. Sp with [facility] this am. [facility] report they need to sp with and want clinical information. Faxed information and later today sp with Dr Pantoja who reports no need for SBU behaviors improved. Sp with who sp with facility and agreeable for return. Sp with [facility] who reports in looking at information agreeable to Memory care unit. They do no plan to skill patient. Discussed plans return she needs time to tour and meet with units as she will be making decision. [facility] agreeable for return.
--- NOTE | 2020-03-09 16:39 | NUR ---
FAXED DC ORDERS/SUMMARY TO [facility] RECEIVED CONFIRMATION AND SPOKE WITH NURSE ON UNIT THAT TRANSPORT ARRANGED WITH [facility] FOR 1600 TODAY.
--- NOTE | 2020-03-10 09:31 | HC ---
[facility] [place] [address] CONSULTATION Name: FLORIN HICKMAN Room #: 216-P [facility] IN M.R.#: [id number] Admission: 03/01/20 Attend Phys: Isabelle Mast MD Discharge: 03/09/20 Date of : 39 Report #: [id number] THIS REPORT FOR: cc: Flaca De La O MD, Ramilo MD Al-Mubaslat, Ahmad MD ~ DATE OF SERVICE: 03/09/2020 ENDOCRINE CONSULTATION NOTE CONSULTING PHYSICIAN: Dr. Mast. REASON FOR CONSULTATION: Hypercalcemia. HISTORY OF PRESENT ILLNESS: This is an 85-year-old male patient who was admitted on the 03/01/2020 with multiple issues including significant electrolyte abnormalities noted for hypernatremia, hypercalcemia as well as behavioral changes and agitation in addition to acute renal insufficiency. Around the time of his arrival, the patient was noted to be combative at his custodial of residence and was subsequently sent to our hospital. He has been managed here for the issues of dehydration with resolving acute kidney injury. He has also been treated for the issue of UTI as well as transient difficulties with acute hypoxemic respiratory failure. The patient has been noted to have hypercalcemia, which during his hospital stay has reached a peak of 12.3 specifically on arrival. With ongoing hydration, this has gradually subsided to the current level of 9.6 mg/dL. When questioned about this finding, the patient denied having had a specific issue with hypercalcemia in the past. He does not believe that he has ever dealt with kidney stones, bone fractures, he denies chronic active issues with nausea, vomiting or other gastrointestinal difficulties. REVIEW OF SYSTEMS: CONSTITUTIONAL: Fatigue, tiredness. He denies weight loss, poor appetite or fever or chills. HEENT: Negative for sore throat, sinus pain or ear drainage. PULMONARY: Occasional difficulties with shortness of breath, intermittent cough, but no hemoptysis. CARDIAC: Negative for chest pain, palpitations, syncope or presyncope. GASTROINTESTINAL: Negative for abdominal pain, nausea, vomiting or changes in bowel movement frequency. NEUROLOGY: Behavioral changes, confusion, but negative for seizure activity or severe frequent headaches. Otherwise, his review of systems noncontributory unless mentioned in HPI. [address] [address] CONSULTATION Name: FLORIN HICKMAN Room #: 216-P [facility] IN M.R.#: [id number] Admission: 03/01/20 Attend Phys: Isabelle Mast MD Discharge: 03/09/20 Date of : 39 Report #: [id number] PAST MEDICAL HISTORY: Noted for: 1. Paroxysmal atrial fibrillation. 2. CAD. 3. Polyneuropathy. 4. Restless leg syndrome. 5. Dementia. 6. BPH. 7. Generalized anxiety disorder. 8. GERD, history of GI bleed in 2017. 9. History of prostate cancer. 10. Chronic anemia. PAST SURGICAL HISTORY: Knee surgery, parotid tumor removal, total hip replacement, cataract surgery, hernial repair. ALLERGIES: No known drug allergies. OUTPATIENT MEDICATIONS: Include: 1. Hydrocodone/acetaminophen q. 4 hours p.r.n. 2. Requip 1 mg at bedtime. 3. Colace 100 mg daily. 4. Pepcid 20 mg b.i.d. 5. Latanoprost ophthalmic at bedtime. 6. Clonazepam 0.5 mg p.o. t.i.d. 7. Artificial tears. 8. Depakote 125 mg b.i.d. 9. Namenda 5 mg b.i.d. FAMILY HISTORY: Noncontributory. SOCIAL HISTORY: The patient denies use of tobacco, alcohol or illicit drugs. He lives at a long-term facility/custodial. PHYSICAL EXAMINATION: GENERAL: elderly male patient who is not in apparent pain or distress, but appears lethargic. VITAL SIGNS: Blood pressure 141/82 mmHg, heart rate is 70 beats per minute, respiration 18 per minute, temperature 37 degrees Celsius. CONSTITUTIONAL: The patient is lying in bed, appears cachexic with dry, cracked lips, but not in apparent distress. HEENT: Anicteric sclerae. Intact extraocular motions. NECK: Supple, no thyromegaly, no lymphadenopathy. CHEST: Noted for moderate entry bilaterally with scattered rales, coarse breath sounds, but not wheezes or crackles. HEART: Regular rate and rhythm without murmurs or gallops. [address] [address] CONSULTATION Name: FLORIN HICKMAN Room #: 216-P [facility] IN M.R.#: [id number] Admission: 03/01/20 Attend Phys: Isabelle Mast MD Discharge: 03/09/20 Date of : 39 Report #: [id number] ABDOMEN: Soft, lax. No guarding. Active bowel sounds. EXTREMITIES: Lower extremity exam negative for skin breaks or ulcerations. NEUROLOGIC: Awake, lethargic, able to answer questions with difficulty, somewhat muffled speech, was generally weak and unable to cooperate with a full neurological examination. PSYCHIATRIC: Pleasant, interactive. Flat mood and affect. LABORATORY RESULTS: Calcium has gone down from a high of 12.3 mg/dL on arrival to 9.6 mg/dL today, having reviewed his calcium values in our EMR database, the patient has had normal calcemia consistently all the way back to 2014. Sodium 133, however, this was 150 on arrival. Potassium 4.1, chloride 99, CO2 of 25, anion gap 9, BUN 10, creatinine 0.9, glucose 94, total bilirubin 1.0, direct bilirubin 0.4, phosphorus 2.6, magnesium 2.0, alkaline phosphatase 82, ALT 18, total protein 5.6, albumin 2.7, EGFR 81. Ammonia 49. Lactic acid 1.1. Total CPK 141. White blood count 10.9, hemoglobin 11.5, hematocrit 37.1, platelets 187. TSH 1.59. Vitamin B12 is 1038. CEA 5.9. PSA 31.9. PTH 7. Vitamin D 19.7. CA 19-9 is 167. ASSESSMENT AND PLAN: 1. Hypercalcemia. As noted above, the patient presented with a host of issues including hypercalcemia, which was severe on arrival specifically over 12 mg/dL. Undoubtedly, the leading suspicion is that of hyperparathyroidism, but this has been ruled out effectively on the basis of an appropriately suppressed PTH level at 7. Furthermore, I prone to believe that his hypercalcemia is likely worse than has been shown by his laboratory results based on his low albumin levels. The remaining possibilities to explain this abnormality include that of hypercalcemia of malignancy, which is an immediate concern given his prostate cancer background and currently elevated PSA as well as elevated CEA and CA 19-9. I will seek to further assess this with a PTH related peptide level. Additionally, I will investigate other causes including sarcoidosis and multiple myeloma with the appropriate testing. Immobilization could certainly have contributed to this issue and could possibly do so in a primary fashion. In the acute setting, the patient has done rather well with IV hydration as his calcium normalized with only these measures taken on. Based on the findings to come with the above noted workup, the patient might benefit from a consideration of bisphosphonate therapy such as Zometa, so as to prevent severe hypercalcemia in the several weeks to come. More definitive management will be considered based on the findings of this workup, but noting that this patient is probably not a candidate for aggressive surgical intervention or investigational approaches. Again, the immediate setting continue with the hydration strategy as it has proved efficient and continue to monitor calcium closely. [facility] [address] [place] [address] CONSULTATION Name: FLORIN HICKMAN Room #: 216-P DIS IN M.R.#: [id number] Admission: 03/01/20 Attend Phys: Isabelle Mast MD Discharge: 03/09/20 Date of : 37 Report #: [id number] 2. Vitamin D deficiency at 19.1. I will start the patient on ergocalciferol 50,000 units once weekly. He will likely need this for 8-12 weeks in order to provide sufficient replacement therapy. I certainly appreciate this consultation by Dr. Mast. <ELECTRONICALLY SIGNED> By: Tonya Posada MD 03/10/20 0931 0944 1028 MD irma Iqbal
[2020-03-10 19:07] LABS: GLOBULIN TOTAL 2.8 g/dL (2.2-3.9); M-SPIKE Not Observed g/dL (Not Observed)
[2020-03-11 07:09] LABS: CALCIUM IONIZED* 5.6 mg/dL (4.5-5.6)
== END 2020-03-09 16:50 | DRG 871 ==
LOC: ER 13:09 → EROBS 16:50 → 2N 16:50 → EROBS 18:55 → 2N 03-02 03:59
PROVIDERS: Internal Medicine; Nurse Practitioner Family; Physician Assistant; ADMIT Internal Medicine; ATTEND Internal Medicine
DX: A41.9 Sepsis, unspecified organism (principal); G92 Toxic encephalopathy; J96.01 Acute respiratory failure with hypoxia; N17.0 Acute kidney failure with tubular necrosis; E87.0 Hyperosmolality and hypernatremia; N39.0 Urinary tract infection, site not specified; K76.9 Liver disease, unspecified; M19.90 Unspecified osteoarthritis, unspecified site; G25.81 Restless legs syndrome; I25.10 Atherosclerotic heart disease of native coronary artery without angina pectoris; I48.0 Paroxysmal atrial fibrillation; G62.9 Polyneuropathy, unspecified; N40.0 Benign prostatic hyperplasia without lower urinary tract symptoms; F41.1 Generalized anxiety disorder; D64.9 Anemia, unspecified; E55.9 Vitamin D deficiency, unspecified; R13.10 Dysphagia, unspecified; K21.9 Gastro-esophageal reflux disease without esophagitis; G47.00 Insomnia, unspecified; R45.1 Restlessness and agitation; I10 Essential (primary) hypertension; E86.0 Dehydration; R16.0 Hepatomegaly, not elsewhere classified; Z96.641 Presence of right artificial hip joint; Z96.653 Presence of artificial knee joint, bilateral; Z20.822 Contact with and (suspected) exposure to COVID-19; Z92.3 Personal history of irradiation; Z92.21 Personal history of antineoplastic chemotherapy; Z85.828 Personal history of other malignant neoplasm of skin; Z98.41 Cataract extraction status, right eye; Z85.46 Personal history of malignant neoplasm of prostate; Z79.899 Other long term (current) drug therapy
CPT/HCPCS: 10081

== ENCOUNTER 2020-03-19 11:27 | Inpatient (IN) | payer OTHER ==
[~2020-03-19] VITALS: Ht 170.2 cm; Wt 68.0 kg
--- NOTE | ~2020-03-19 | EMS ---
[address] [address] EMS Patient Care Report Name: FLORIN HICKMAN Room #: 170-12 ADM IN M.R.#: [id number] Admission: 03/19/20 Attend Phys: Chris Mcconnell MD Discharge: Date of : 37 Report #: [id number] THIS REPORT FOR: //name// Report Transmitted: 03/19/2020 19:25 EMS Care Summary [place], [place] Incident [id number] @ 03/19/2020 10:48 Incident Location [address] [place] [address] 1 Patient FLORIN HICKMAN Male, 85 Years 1935 Patient Address [address] [place] [address] Patient History Gastro-Esophageal Reflux Disease (GERD),Anxiety,Atrial Fibrillation,Chronic Pain,Glaucoma,Dysphagia,Restless Leg Syndrome,Coronary Artery Disease (CAD), Patient Allergies No known allergies, Patient Medications [place], Klonopin, Namenda, Ropinirole, Lidocaine, Depakote, Zyrtec, Docusate Sodium, Famotidine, Chief Complaint Altered Mental Status Disposition Transported [place] Dispatch Reason Heart Problems/AICD Transported To [facility] Narrative Responded to the address for report of patient experiencing heart problems. Arrived on scene at the alf and found the patient lying supine in his [address] [address] EMS Patient Care Report Name: FLORIN HICKMAN Room #: 170-12 ADM IN [facility]#: [id number] Admission: 03/19/20 Attend Phys: Chris Mcconnell MD Discharge: Date of : 39 Report #: [id number] bed alert but not oriented with a GCS of 10. The alf staff on scene advised that 911 was called because the patient began to experience altered mental status at approximately 1000 hours. The alf staff on scene when questioned on the patients baseline mentation advised that the patient was normally alert and oriented and able to hold an appropriate conversation. The patient was assessed and found to be inconclusive on a [place] prehospital stroke assessment due to his altered mental status and inability to follow commands. A radial pulse was then attempted to be palpated on the patient and no palpable pulse was noted. The patients baseline vital signs where then obtained and a 4 lead ECG was acquired. The patient was then found to be hypotensive and in atrial fibrillation with a rapid ventricular response. The patient was then treated on scene with a normal saline bolus after IV access was established. A 12 lead was also obtained with no additional findings and the patients blood sugar was found to be with in an appropriate range. The patient was then moved from the alf bed and placed onto the stretcher without incident. The patient was then moved out of the alf and placed into the back of the ambulance without incident. The patients vitals where then trended and the patient was initially found to have no improvement in condition after treatment with a normal saline bolus. The patient was then found to be febrile with an axillary temperature at 99.9 degrees Fahrenheit. The proper additional PPE was then donned by EMS providers at this time. During transport medical control was contacted for orders regarding the patients condition. Medical control was advised of the patient being found hypotensive and presenting in atrial fibrillation with a rapid ventricular response. Base physician number 7 answered and EMS asked if the physician wished for EMS to cardiovert the patient or push a vasopressor. While EMS called for orders the patients blood pressure was reassessed and the patient was found to have a blood pressure in an appropriate range. Medical control was then advised of the patients improvement in condition and no orders where given by medical control. A stroke activation was then called to the receiving hospital. The patient throughout transport had no further changes in condition and remained normotensive throughout the rest of care by EMS. Patient care was then transferred to the receiving facility without incident. Med unit back in service. Initial Vitals @11:16P: 156,BP: 149/130,SpO2: 91, @11:15P: 161,SpO2: 86, @11:02P: 138, @11:13P: 142,CO: 0,SpO2: 84, @11:01P: 170,Pain: 0/10,CO: 2,SpO2: 93, @11:07P: 135, @11:08P: 126,R: 18,BP: 75/47,Pain: 0/10,GCS: 10,Temp: 99.9F,SpO2: 79,Revised Trauma: 9, @10:56P: 175,R: 18,BP: 71/58,Pain: 0/10,GCS: 10,Glucose: 108,CO: 6,SpO2: 92,Revised Trauma: 9,HI Suspected: false [facility] [address] [place] [address] EMS Patient Care Report Name: MARYLOUFLORINEN Room #: 170-12 ADM IN M.R.#: [id number] Admission: 03/19/20 Attend Phys: Chris Mcconnell MD Discharge: Date of : 39 Report #: [id number] @11:08P: 127,SpO2: 78, @11:18P: 143,BP: 93/59,Pain: 0/10,GCS: 10, @10:55P: 100,R: 18,BP: 82/58,Pain: 0/10,GCS: 10,SpO2: 92,Revised Trauma: 10,HI Suspected: false @11:14P: 143,R: 18,BP: 148/110,GCS: 10,SpO2: 80,Revised Trauma: 11, Assessments @10:53MENTAL:Confused,SKIN:HEENT:Neck/Airway: No Abnormalities,LUNG SOUNDS:ABDOMEN:PELVIS//GI:EXTREMITIES:PULSE:Radial: Absent,NEURO:Other,@11:19MENTAL:Confused,SKIN:HEENT:Head/Face: No Abnormalities,Neck/Airway: No Abnormalities,LUNG SOUNDS:ABDOMEN:PELVIS//GI:EXTREMITIES:PULSE:NEURO:Other, Impression Cardiac arrhythmia/dysrhythmia Procedures @11:0112-Lead ECGResponse: UnchangedSucceeded@10:53ALS AssessmentResponse: UnchangedSucceeded@10:563-Lead ECGResponse: UnchangedSucceeded@10:59Normal Saline (.9% NaCl) 7cc (20 ga) Site: Antecubital-LeftResponse: UnchangedSucceeded@11:01Normal Saline (.9% NaCl) 500cc () Site: Antecubital-LeftResponse: ImprovedSucceeded@11:06Oxygen FlowRate: 5 Device: Nasal Cannula (NC) Response: UnchangedSucceeded@11:08Oxygen FlowRate: 15 Device: Non Re-breather Mask (NRB) Response: ImprovedSucceeded Timeline 10:46,Call Received 10:46,Dispatch Notified 10:48,Dispatched 10:49,En Route 10:51,On Scene 10:53,At Patient 10:53,ALS Assessment,Response: UnchangedSucceeded, 10:55,BP: 82/58 M,PULSE: 100,RR: 18 R,SPO2: 92 Ox,ETCO2: ,BG: ,PAIN: 0,GCS: 10, 10:56,3-Lead ECG,Response: UnchangedSucceeded, 10:56,BP: 71/58 M,PULSE: 175,RR: 18 R,SPO2: 92 Ox,ETCO2: ,B,PAIN: 0,GCS: 10, 10:59,Normal Saline (.9% NaCl) 7cc 20 ga Site: Antecubital-Left,Response: UnchangedSucceeded, 11:01,Normal Saline (.9% NaCl) 500cc Site: Antecubital-Left,Response: ImprovedSucceeded, 11:01,12-Lead ECG,Response: UnchangedSucceeded, 11:01,BP: / M,PULSE: 170,RR: R,SPO2: 93 Ox,ETCO2: ,BG: ,PAIN: 0,GCS: , 11:02,BP: / M,PULSE: 138,RR: R,SPO2: Ox,ETCO2: ,BG: ,PAIN: ,GCS: , 11:06,Oxygen FlowRate: 5 Device: Nasal Cannula (NC) Response: UnchangedSucceeded, [facility] [address] [place] [address] EMS Patient Care Report Name: FLORIN HICKMAN DEBORAH Room #: 170-12 ADM IN M.R.#: [id number] Admission: 03/19/20 Attend Phys: Chris Mcconnell MD Discharge: Date of : 39 Report #: [id number] 11:07,BP: / M,PULSE: 135,RR: R,SPO2: Ox,ETCO2: ,BG: ,PAIN: ,GCS: , 11:08,Oxygen FlowRate: 15 Device: Non Re-breather Mask (NRB) Response: ImprovedSucceeded, 11:08,BP: / M,PULSE: 127,RR: R,SPO2: 78 Ox,ETCO2: ,BG: ,PAIN: ,GCS: , 11:08,BP: 75/47 M,PULSE: 126,RR: 18 R,SPO2: 79 Ox,ETCO2: ,BG: ,PAIN: 0,GCS: 10, 11:13,Depart Scene 11:13,BP: / M,PULSE: 142,RR: R,SPO2: 84 Ox,ETCO2: ,BG: ,PAIN: ,GCS: , 11:14,BP: 148/110 M,PULSE: 143,RR: 18 R,SPO2: 80 Ox,ETCO2: ,BG: ,PAIN: ,GCS: 10, 11:15,BP: / M,PULSE: 161,RR: R,SPO2: 86 Ox,ETCO2: ,BG: ,PAIN: ,GCS: , 11:16,BP: 149/130 M,PULSE: 156,RR: R,SPO2: 91 Ox,ETCO2: ,BG: ,PAIN: ,GCS: , 11:18,BP: 93/59 M,PULSE: 143,RR: R,SPO2: Ox,ETCO2: ,BG: ,PAIN: 0,GCS: 10, 11:19,At Destination 11:50,Call Closed Disclaimer v1.1 Copyright 2020 [employer] This EMS Care Summary contains data elements from the applicable legal record (which may be displayed differently). It is designed to provide pertinent information for the following purposes: continuity of care, clinical quality, and state data reporting. The complete legal record is available to ED staff and administrators of the receiving hospital in [employer]'s Patient Tracker. All data is provided "as is."
[~2020-03-19 11:27] MED LIST changes: +ARTIFICIAL TEAR15 M4 EA. EYE; +ASPERCREME1 EACH TOP; +DEPAKOTE SPRIN125 MG PO; +HALOPERIDOL 5 MG5 MG PO; +NAMENDA 5 MG TAB5 M1 PO; +VITAMIN D21250 MC1 PO
[2020-03-19 11:28] VITALS: BP 112/68
[2020-03-19 11:55] LABS: HEMATOCRIT 41.9 % (42.0-52.0); HEMOGLOBIN 12.6 gm/dL (14.0-18.0); MCH 26.2 pg (26.0-34.0); MCHC 30.1 g/dL (28.0-37.0); MCV 87.1 fL (80.0-100.0); PLATELET COUNT 180 thou/uL (150-400); RBC 4.81 mil/uL (4.50-6.00); RDW 14.6 % (10.5-14.5); WBC 26.5 thou/uL (4.0-11.0)
[2020-03-19 12:05] LABS: CALCIUM 9.7 mg/dL (8.5-10.1); CREATININE 4.8 mg/dL (0.7-1.3); POTASSIUM 4.8 mmol/L (3.5-5.1)
[2020-03-19 12:10] LABS: ALBUMIN 2.7 g/dL (3.4-5.0); MAGNESIUM 2.5 mg/dL (1.8-2.4); TOTAL BILIRUBIN 0.8 mg/dL (0.2-1.0); TOTAL PROTEIN 6.6 g/dL (6.4-8.2)
[2020-03-19 12:12] LABS: TROPONIN-I 0.77 ng/mL (<0.06)
--- NOTE | 2020-03-19 12:27 | EKG ---
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 : 1935 Requested By: Claudio Shipman Order Number: [id number] MD: Lexa Beckman Measurements Intervals [place] Rate: 143 P: [place]: QRS: -26 QRSD: 94 T: 174 QT: 272 QTc: 420 Interpretive Statements Atrial fibrillation with rapid V-rate Borderline left axis deviation Repolarization abnormality, prob rate related Compared to ECG 03/01/2020 14:03:04 Sinus rhythm no longer present Ventricular premature complex(es) no longer present Electronically Signed On 03-19-2020 12:27:43 [facility] by Lexa Beckman [email or web address] <ELECTRONICALLY SIGNED> By: Lexa Beckman MD, [facility] 03/19/20 1227 1150 1150 Lexa Beckman MD, FACC /EPI
[2020-03-19 12:35] LABS: ABSOLUTE NEUTROPHILS 22.8 thou/uL (1.4-8.2); ANISOCYTOSIS 1+; METAMYELOCYTES 1 %
[2020-03-19 12:36] LABS: OVALOCYTES FEW
[2020-03-19 12:45] LABS: URINE BLOOD 1+ (Negative); URINE CLARITY CLEAR; URINE COLOR YELLOW; URINE GLUCOSE-RANDOM* NEGATIVE (Negative); URINE KETONES TRACE (Negative); URINE LEUKOCYTES-REFLEX NEGATIVE (Negative); URINE NITRITE-REFLEX NEGATIVE (Negative); URINE PROTEIN (DIPSTICK) TRACE (Negative); URINE SPECIFIC GRAVITY 1.025 (1.005-1.035); URINE UROBILINOGEN 0.2 E.U./dl (0.2-1.0)
[2020-03-19 12:49] LABS: ICTOTEST (BILI CONFIRMATORY) Negative (Negative); URINE BILIRUBIN NEGATIVE (Negative)
[2020-03-19 13:01] LABS: SQUAMOUS 0-3 Few /LPF (0-3)
[2020-03-19 13:02] LABS: HYALINE CASTS 0-3 Few /LPF (None Seen)
[2020-03-19 13:03] LABS: BE(vivo) -3.4 mmol/L (-2 to +3); HCO3 20.2 mmol/L (22.0-26.0); PCO2 32.5 mmHg (35.0-45.0); PO2 92.3 mmHg (80.0-100.0); pH 7.412 (7.360-7.450); sO2 97.2 % (92.0-98.0)
[2020-03-19 13:04] LABS: BACTERIA-REFLEX 1-9 Few /HPF (None Seen); CRYSTALS None Seen /LPF (None Seen); URINE RBC 3-10 Few /HPF (0-2); URINE WBC-REFLEX 0-5 Rare /HPF (0-5)
[2020-03-19] MEDS ORDERED: ATIVAN0.5 M1 PO (18:23)
[2020-03-19] MEDS ORDERED: ATIVAN0.5 M1 IM (18:23)
[2020-03-19] MEDS ORDERED: ATIVAN2 MG/1 ML IM (18:24)
[2020-03-19 21:00] VITALS: BP 97/59
[2020-03-19 23:09] VITALS: BP 160/63
[2020-03-20] VITALS (10 sets, daily range): BP systolic 94–117; BP diastolic 52–63
[2020-03-20 06:13] LABS: HEMATOCRIT 37.3 % (42.0-52.0); HEMOGLOBIN 11.3 gm/dL (14.0-18.0); MCH 26.1 pg (26.0-34.0); MCHC 30.3 g/dL (28.0-37.0); MCV 86.1 fL (80.0-100.0); PLATELET COUNT 126 thou/uL (150-400); RBC 4.33 mil/uL (4.50-6.00); RDW 14.2 % (10.5-14.5); WBC 23.8 thou/uL (4.0-11.0)
[2020-03-20 06:36] LABS: CALCIUM 9.5 mg/dL (8.5-10.1); CREATININE 4.1 mg/dL (0.7-1.3); MAGNESIUM 2.3 mg/dL (1.8-2.4); POTASSIUM 4.1 mmol/L (3.5-5.1)
[2020-03-20 08:57] LABS: ABSOLUTE NEUTROPHILS 22.4 thou/uL (1.4-8.2); PLATELET ESTIMATE NORMAL
--- NOTE | 2020-03-20 12:20 | NUR ---
Consult rec'd for hospice referral. Slots Manager visited with the pt's Eileen at bedside. Pt is non responsive. Pt known to cm from previous admissions. The pt most recently when to [facility] for rehab and then placement in memory care [facility] at [place]. However, he had a change in status yesterday and was brought to the ER with sepsis,uti,JENNIFER, and AFIB. He has a hx of dementia with behavior issues and dysphagia. He is currently covid neg and NPO. He is getting some DW5/IVF. reports pt is a DNR and his wishes would be to pass away at home. She is interested in taking him home with hospice services. She will be back this afternoon and will let cm know if she has an agency preference for info visit. She will need to have family help prepare their family room for a hospital bed and oxygen setup. Support provided. Outside the hospital DNR form and [facility] form in progress along with hospice referral. Hospice options discussed. to advise on agency preference. DC plan is home with hospice once arrangements are in place.
--- NOTE | 2020-03-20 15:57 | NUR ---
FAXED REFERRAL TO [facility] WITH [facility] IN INTAKE SHE RECEIVED REFERRAL AND WILL REVIEW.
--- NOTE | 2020-03-20 20:14 | NUR ---
PT CARE ASSUMED AT 1145. ASSESSMENTS CHARTED. MEDICATIONS CHARTED. AYLA IV. RFA IV. DEAL. SINUS RHYTHM. PT ID A NO CODE. PT DOES NOT QUALIFY FOR HOSPICE HOUSE ACCORDING TO HOSPICE, FAMILY IS THINKING OF MAKING PT PALLIATIVE CARE. HOSPICE WILL CALL AGAIN IN THE AM.
--- NOTE | 2020-03-21 04:03 | NUR ---
Pt. was a transfer from [address] [place] [address] earlier this shift. He has been resting quietly in bed. Pt. non-verbal, but opens his eyes to verbal stimuli. Bed alarm is on.
[2020-03-21 10:13] VITALS: BP 119/53
--- NOTE | 2020-03-21 11:47 | NUR ---
Received asleep on bed, non-verbal; opens eyes at times. On MS, not on telemetry; no complains and signs of chest pain, crushing sensation and heaviness. On O2 at 4-6lpm via nasal cannula. On nothing per orem- pt's relative informed and aware. On blood sugar monitoring ACHS, taken and recorded accordingly. With calhoun in place, draining well; output measured and recorded accordingly. With D5 at 100cc/hr, infusing well at R upper arm. With bruises at arms. No nausea, no vomiting and no abdominal pain noted. Pt turned on his sides regulary. Mouth care done. Hospice house called this AM, pt does not qualify for hospice house, suggesting home with hospice care instead; no admit nurse for today but will be able to take patient tomorrow afternoon- CM and Dr Mcconnell informed re: this- pt's updated as well. Pt seen and examined by Dr Mcconnell this AM, present at bedside, update given; Dr Mcconnell took pt's son and daughter's number to give them update as well. To continue monitoring patient.
[2020-03-21 16:18] VITALS: BP 133/83
[2020-03-21 19:57] VITALS: BP 108/64
--- NOTE | 2020-03-22 03:24 | NUR ---
Pt. rested quietly during the night when checked on during frequent rounds. He has been incontinent of stool and nguyen care given. Pt. turned and repostioned. Bed alarm is on. Plan for discharge home with hospice.
[2020-03-22 07:56] VITALS: BP 124/80
--- NOTE | 2020-03-22 08:34 | NUR ---
ASSUMED CARE AT 0700. PT IS DISORIENTED X4 AND SLEEPY. PT IS MOUTH BREATHER AND MOUTH CONSTANTLY WILL STAY OPEN.PT IS ON 2L OF OYXGEN AND TOLERATING WELL. SCD HOSE ARE IN PLACE. IV IS R. AC IS INTACT AND SHOWS NO SIGNS OF REDNESS OR SWELLING. DEAL IS IN PLACE. REDNESS AND UPPER BACK ON BUTT AND ZGUARD WAS APPLIED. BRUISES AND SKIN TEARS THROUGHOUT ARM. WILL CONTINUE TO MONITOR.
[2020-03-22] MEDS ORDERED: MSL20MG/ML SUBLING (10:37)
== END 2020-03-22 15:35 | disposition hospice, home (50) | DRG 871 ==
LOC: ER 11:27 → EROBS 13:49 → 2N 03-20 11:35 → 4W 03-20 23:06
PROVIDERS: Emergency Medicine; Nurse Practitioner; ADMIT Hospitalist; ATTEND Hospitalist
DX: A41.9 Sepsis, unspecified organism (principal); J96.21 Acute and chronic respiratory failure with hypoxia; I21.4 Non-ST elevation (NSTEMI) myocardial infarction; I48.20 Chronic atrial fibrillation, unspecified; E87.0 Hyperosmolality and hypernatremia; G93.40 Encephalopathy, unspecified; N17.9 Acute kidney failure, unspecified; F03.90 Unspecified dementia, unspecified severity, without behavioral disturbance, psychotic disturbance, mood disturbance, and anxiety; I25.10 Atherosclerotic heart disease of native coronary artery without angina pectoris; M19.90 Unspecified osteoarthritis, unspecified site; F41.1 Generalized anxiety disorder; I10 Essential (primary) hypertension; E86.0 Dehydration; R16.0 Hepatomegaly, not elsewhere classified; N40.0 Benign prostatic hyperplasia without lower urinary tract symptoms; G25.81 Restless legs syndrome; Z20.822 Contact with and (suspected) exposure to COVID-19; Z96.653 Presence of artificial knee joint, bilateral; Z66 Do not resuscitate; Z51.5 Encounter for palliative care; Z85.828 Personal history of other malignant neoplasm of skin; Z92.21 Personal history of antineoplastic chemotherapy; Z92.3 Personal history of irradiation; Z85.46 Personal history of malignant neoplasm of prostate; Z79.899 Other long term (current) drug therapy
CPT/HCPCS: 10047